=== PATIENT | female | born 1975 | race Caucasian/White ===

== ENCOUNTER → 2016-11-28 | Outpatient (REF) | payer BC, OTHER | LOC: M LAB REF 13:04 | PROVIDERS: ATTEND Internal Medicine Medical Oncology | DX: D72.829 Elevated white blood cell count, unspecified (principal) ==

== ENCOUNTER → 2016-12-05 | Outpatient (REF) | payer BC | LOC: M LAB REF 12:32 | PROVIDERS: ATTEND Internal Medicine Medical Oncology | DX: D72.829 Elevated white blood cell count, unspecified (principal) ==

== ENCOUNTER → 2017-05-30 | Outpatient (CLI) | payer OTHER ==
[~2017-05-30] MED LIST: ALLERGY SHOTS; ASPI1TAB PO; ATEN50TA9 PO; CLON-412 PO; FISH1CAP20 PO; FLOM5CAP PO; FLUO20CA19 PO; FOLI1TAB4 PO; LORA10CA PO; METH2.5TA PO; PREM0.452 PO; SIMV40TA2 PO; SUPETAB25 PO; TYLE650T35 PO; VITA-182 PO; VITA1CHW12 PO; VITMTA PO
--- NOTE | 2017-05-30 12:51 | REP ---
Supine abdomen two views: There is a 9 mm calcification projected over the lower pole of the right kidney. There is a 7 mm calcification projected over the lower pole of the left kidney. There are surgical clips in the right upper quadrant. The bowel gas pattern is normal. The skeletal structures and soft tissues are unremarkable. Signed by Vipul Perez MD 05/30/2017 12:43 P
[2017-05-30 13:50] LABS: MEAN CORPUSCULAR HEMOGLOBIN 28.2 pg (27.0-33.0); MEAN CORPUSCULAR HGB CONC 31.9 g/dl (32.0-36.5); MEAN CORPUSCULAR VOLUME 88.6 fl (80.0-96.0); RED CELL DISTRIBUTION WIDTH 15.9 % (11.5-14.5); WHITE BLOOD COUNT 11.9 10^3/uL (4.0-10.0)
[2017-05-30 14:06] LABS: INR 0.97
[2017-05-30 15:46] LABS: ANION GAP 7 MEQ/L (8-16); BLOOD UREA NITROGEN 12 MG/DL (7-18); CARBON DIOXIDE LEVEL 32 MEQ/L (21-32); CHLORIDE LEVEL 101 MEQ/L (98-107); GLOMERULAR FILTRATION RATE > 60.0 (>58); GLUCOSE, FASTING 78 MG/DL (70-105); POTASSIUM SERUM 4.3 MEQ/L (3.5-5.1); SODIUM LEVEL 140 MEQ/L (136-145)
== END ==
LOC: M SMT 11:45
PROVIDERS: ATTEND Nurse Practitioner Women's Health
DX: N20.0 Calculus of kidney (principal)

== ENCOUNTER 2017-06-08 06:35 | Day surgery (SDC) | payer OTHER ==
[~2017-06-08] VITALS: Ht 165.1 cm; Wt 130.6 kg
[~2017-06-08 06:35] MED LIST changes: -ASPI1TAB PO; -FLOM5CAP PO; -TYLE650T35 PO
[2017-06-08] MEDS ORDERED: LIDOCAINE 1% MDV 20ML VIAL SQ PRN (07:00)
[2017-06-08] MEDS ORDERED: LR 1,000 ML IV SCH ×2 (07:00→09:45)
[2017-06-08] MEDS ORDERED: MIDAZOLAM INJ 2 MG/2 ML VIAL (J2250) As Ordered ONE (07:54)
[2017-06-08] MEDS ORDERED: PROPOFOL 200 MG/20 ML VIAL As Ordered ONE (07:54)
[2017-06-08] MEDS ORDERED: fentaNYL 100 MCG/2 ML INJECTION (J3010) As Ordered ONE (07:54)
[2017-06-08] MEDS ORDERED: ASPI1TAB PO (08:00)
--- NOTE | 2017-06-08 08:21 | REP ---
KUB: Single view. History: Right renal stone. Comparison KUB May 30, 2017. Findings: There are bilateral intrarenal calculi. In the mid position at the right renal silhouette, there is a 10 mm calculus again noted. This was at the lower pole level on the prior study. In the lower pole of the left kidney, today's radiograph again demonstrates a calculus measuring 7 mm. No other urinary tract calculus is visible. The bowel gas pattern is normal. Psoas margins and flank stripes are intact. There are clips in the right upper quadrant post cholecystectomy. Degenerative changes are seen in the symphysis pubis. Impression: Bilateral intrarenal nephrolithiasis. Signed by Ignacio Grant MD 06/08/2017 11:56 A
--- NOTE | 2017-06-08 08:31 | ECGEPIP ---
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
[2017-06-08] MEDS ORDERED: FLOM5CAP PO (08:54)
[2017-06-08] MEDS ORDERED: TYLE650T35 PO (08:54)
[2017-06-08] MEDS ORDERED: TAMSULOSIN 0.4 MG CAP PO SCH (09:00)
[2017-06-08] MEDS ORDERED: PERCOCET 5MG/325MG TAB PO PRN (09:45)
[2017-06-08] MEDS ORDERED: ACETAMINOPHEN TAB 650MG DOSE (2X325MG) PO PRN (09:45)
[2017-06-08] MEDS ORDERED: ACETAMINOPHEN 650MG ER TAB (TYLENOL ARTHRITIS) PO SCH (10:00)
[2017-06-08 10:15] VITALS: BP 124/66
--- NOTE | 2017-06-08 13:37 | RO ---
DATE OF PROCEDURE: 06/08/2017 PREPROCEDURE DIAGNOSIS: Right renal stone. POSTPROCEDURE DIAGNOSIS: Right renal stone. PROCEDURE: Right extracorporal shockwave lithotripsy. SURGEON: Dr. Charli Crook. GUIDEMAN: None. ANESTHESIA: MAC. COMPLICATIONS: None. ESTIMATED BLOOD LOSS: N/A FINDINGS: 6 mm right renal stone. HISTORY OF PRESENT ILLNESS: This is a 42-year-old female patient with a right 6 mm kidney stone and has flank pain. For this reason we have ordered a right extracorporal shockwave lithotripsy. She has signed a consent form. DESCRIPTION OF PROCEDURE: With the patient under MAC anesthesia in the supine position after the findings was done with ultrasound and x-ray, we gave a total of 2500 shockwave lithotripsies at a power of 1-20. The first 100 shockwave lithotripsy was done at a power of 1-6, the following 100 shockwave lithotripsy was done at a power of 6-10, the final 100 shockwave lithotripsy was done at a power of 1-15 and the final 2200 shockwave lithotripsy was done at a power of 16-20. The patient tolerated the procedure very well. There were no complications. PLAN: The patient will go home today with Flomax and Tylenol for pain. She will followup at [facility] in about 3 weeks.
== END 2017-06-08 10:17 | disposition home or self-care (01) ==
LOC: M SDC 06:35
PROVIDERS: ATTEND Urology
DX: N20.0 Calculus of kidney (principal); I10 Essential (primary) hypertension; E78.5 Hyperlipidemia, unspecified; G47.30 Sleep apnea, unspecified; Z79.899 Other long term (current) drug therapy; Z88.1 Allergy status to other antibiotic agents; Z88.8 Allergy status to other drugs, medicaments and biological substances

== ENCOUNTER → 2017-07-06 | Outpatient (CLI) | payer OTHER ==
[~2017-07-06] MED LIST changes: +ASPI1TAB PO; +FLOM5CAP PO; +TYLE650T35 PO
--- NOTE | 2017-07-06 16:55 | REP ---
CT ABDOMEN AND PELVIS WITHOUT CONTRAST: 07/06/2017. Clinical history: Kidney stone, flank pain. Comparison: CT 05/30/2012. Findings: CT abdomen: Renal stone protocol utilized. Lung bases were clear. Heart is not enlarged. There is no pericardial thickening or effusion nor hiatal hernia. Liver is not enlarged with 17 cm vertical diameter in the midclavicular line. No fatty infiltration. No focal hepatic mass or biliary dilatation. Clips from prior cholecystectomy seen. No ascites. No splenomegaly or focal splenic lesion. Adrenal glands are normal. Pancreas unremarkable. No peripancreatic inflammatory changes, stone, fluid collections or adenopathy. Adrenal glands normal. There are stones in the kidneys bilaterally. In the lower pole on the left is a triangular-shaped 9 mm stone. No stone in the collecting system or any hydronephrosis. The right kidney shows a few stones in the 3-5 mm range, interpolar lower pole pyramids. None in the collecting systems and no hydronephrosis or hydroureter. I see no ureteral stone on either side. Small bowel loops and colon grossly intact. Colon is without sign of colitis or diverticulitis. Lung window review of all CT slices shows no perforation or free air. No abscess. The aorta is intact. No periaortic other retroperitoneal lymphadenopathy. Bone windows show lumbar and lower thoracic spine without compression deformity or destructive lesion. Visualized ribs are intact. There is no focal lesion. CT pelvis: Sacrum, SI joints, iliac bones, hips and symphysis pubis without fracture or destructive lesion. There is mild hip arthritis, right more than left. Small osteophytes. No hip joint space narrowing. Uterus absent. Vaginal cuff intact. No adnexal mass. Distal left colon through the rectum shows no colitis or diverticulitis. Small bowel loops in the pelvis intact. There is no ventral or inguinal hernia nor inguinal adenopathy. Impression: 1. Bilateral nephrolithiasis without hydronephrosis, hydroureter, ureteral stone or bladder stone. No bladder wall thickening or mass. 2. Status post hysterectomy. No pelvic mass. 3. Liver, spleen, pancreas, adrenal glands, colon and small bowel loops unremarkable. No ventral or inguinal hernia. Signed by Luis Armando Woodruff MD 07/06/2017 07:45 P
== END ==
LOC: M RAD 14:03
PROVIDERS: ATTEND Nurse Practitioner Women's Health
DX: N20.0 Calculus of kidney (principal); R10.9 Unspecified abdominal pain

== ENCOUNTER → 2018-06-14 | Outpatient (REF) | payer OTHER ==
[2018-06-14 14:09] LABS: APPEARANCE, URINE CLOUDY (CLEAR); BACTERIA, URINE AUTO 1+ (NEGATIVE); BILIRUBIN, URINE AUTO NEGATIVE (NEGATIVE); BLOOD, URINE BLOOD NEGATIVE (NEGATIVE); COLOR, URINE YELLOW (YELLOW); GLUCOSE, URINE (UA) AUTO NEGATIVE (NEGATIVE); KETONE, URINE AUTO NEGATIVE (NEGATIVE); LEUKOCYTE ESTERASE, URINE AUTO NEGATIVE (NEGATIVE); MUCUS, URINE SMALL (NEGATIVE); NITRITE, URINE AUTO NEGATIVE (NEGATIVE); PROTEIN, URINE AUTO NEGATIVE (NEGATIVE); RBC, URINE AUTO 0 /HPF (0-3); SPECIFIC GRAVITY URINE AUTO 1.017 (1.002-1.035); SQUAMOUS EPITHELIAL CELL UR AU 3 /HPF (0-6); UROBILINOGEN, URINE AUTO 0.2 mg/dL (0.0-2.0); WBC, URINE AUTO 1 /HPF (0-3)
== END ==
LOC: M SMT 13:11
DX: N20.0 Calculus of kidney (principal)

== ENCOUNTER → 2018-06-26 | Outpatient (CLI) | payer OTHER | LOC: M RAD 14:31 | DX: N20.0 Calculus of kidney (principal); R10.9 Unspecified abdominal pain; K42.9 Umbilical hernia without obstruction or gangrene | CPT/HCPCS: 74176 ==

== ENCOUNTER → 2019-02-20 | Outpatient (REF) | payer OTHER ==
[~2019-02-20] MED LIST changes: -ASPI1TAB PO; +ASPI81TA26 PO; +B COTAB3 PO; +CLAR10CA3 PO; +D3 H10002 PO; +ESTR2TAB2 PO; +FLOM0.4C39 PO; -FLOM5CAP PO; +FOLI1TAB11 PO; -FOLI1TAB4 PO; +METH2.5T48 PO; -METH2.5TA PO; +TIZA4TAB4 PO; +TRAM50TA2 PO
[2019-02-21 15:34] LABS: URINE TOTAL PROTEIN 12.2 MG/DL (0-12); URINE TOTAL PROTEIN 9.1 MG/DL (0-12)
[2019-02-23 07:57] LABS: TOTAL PROTEIN 24 HOUR URINE 127.4 MG/24HR (50-150)
[2019-03-06 13:13] LABS: UPEP INTERPRETATION NO M-SPIKE NOTED; URINE VOLUME RANDOM ML
== END ==
LOC: M LAB REF 14:40
PROVIDERS: ATTEND Internal Medicine Medical Oncology
DX: R93.7 Abnormal findings on diagnostic imaging of other parts of musculoskeletal system (principal)

== ENCOUNTER → 2020-09-01 | Outpatient (REF) | payer BC, OTHER ==
[~2020-09-01] MED LIST changes: +ACET650T61 PO; -FLUO20CA19 PO; +FLUO20CA22 PO; -SIMV40TA2 PO; +SIMV40TA20 PO; -TYLE650T35 PO
[2020-09-01 13:39] LABS: APPEARANCE, URINE CLOUDY (CLEAR); BACTERIA, URINE AUTO 1+ (NEGATIVE); BILIRUBIN, URINE AUTO NEGATIVE (NEGATIVE); BLOOD, URINE BLOOD 3+ (NEGATIVE); CALCIUM OXALATE CRYSTALS LARGE; COLOR, URINE YELLOW (YELLOW); GLUCOSE, URINE (UA) AUTO NEGATIVE (NEGATIVE); KETONE, URINE AUTO NEGATIVE (NEGATIVE); LEUKOCYTE ESTERASE, URINE AUTO TRACE (NEGATIVE); MUCUS, URINE SMALL (NEGATIVE); NITRITE, URINE AUTO NEGATIVE (NEGATIVE); PROTEIN, URINE AUTO 2+ mg/dL (NEGATIVE); RBC, URINE AUTO TNTC /HPF (0-3); SPECIFIC GRAVITY URINE AUTO 1.023 (1.002-1.035); SQUAMOUS EPITHELIAL CELL UR AU 4 /HPF (0-6); UROBILINOGEN, URINE AUTO 0.2 mg/dL (0.0-2.0); WBC, URINE AUTO 8 /HPF (0-3)
== END ==
LOC: M SMT 13:05
PROVIDERS: ATTEND Nurse Practitioner Women's Health
DX: R31.0 Gross hematuria (principal)

== ENCOUNTER → 2020-09-08 | Outpatient (CLI) | payer BC ==
[~2020-09-08] MED LIST changes: +ISOVUE-370 76% 100ML VIAL As Ordered ONE
--- NOTE | 2020-09-08 10:53 | REP ---
INDICATION: GROSS HEMATURIA. COMPARISON: 06/26/2018 TECHNIQUE: Axial precontrast, contrast-enhanced and delayed images from the lung bases to the pubic symphysis using 100 cc Isovue 370 intravenous contrast material. Coronal and sagittal reformations obtained. This CT examination was performed using the following dose reduction techniques: Automated exposure control, adjustment of mA and/or kv according to the patient's size, and the use of iterative reconstruction technique. FINDINGS: There is a 12 mm obstructing calculus in the distal left ureter approximately 4 cm above the ureterovesical junction with associated Periureteral stranding. Remainder of the urinary tract system is unremarkable. Mild periaortic reactive lymph nodes at the level of the left kidney noted measuring up to 8 mm. Liver, spleen, pancreas, and bilateral adrenal glands are normal. Evidence for prior cholecystectomy. The enteric system is without obstruction or acute inflammatory process. Pelvis demonstrates relatively normal bladder and evidence for prior partial hysterectomy. No ascites. No free air. Abdominal aorta without aneurysm or dissection. Musculoskeletal structures are intact. Lung bases are clear. IMPRESSION: 1. A 12 mm obstructing calculus in the distal left ureter with mild periureteral stranding and mild reactive lymph nodes. Otherwise normal urinary tract system. 2. No further acute abdominopelvic pathology appreciated. <Electronically signed by Dominic Valencia > 09/08/20 1043
== END ==
LOC: M RAD 10:09
PROVIDERS: ATTEND Nurse Practitioner Women's Health
DX: N20.1 Calculus of ureter (principal); R31.0 Gross hematuria
CPT/HCPCS: 74178; Q9967

== ENCOUNTER → 2020-10-11 | Outpatient (CLI) | payer BC ==
[~2020-10-11] MED LIST changes: +EQL50TAB2 PO; -ISOVUE-370 76% 100ML VIAL As Ordered ONE; +OXYB5TAB10 PO; +VITA500C24 PO
== END ==
LOC: M LABSMTC 11:19
PROVIDERS: ATTEND Anesthesiology
DX: Z01.812 Encounter for preprocedural laboratory examination (principal); Z20.822 Contact with and (suspected) exposure to COVID-19

== ENCOUNTER 2020-10-16 08:52 | Day surgery (SDC) | payer BC ==
[~2020-10-16] VITALS: Ht 165.1 cm; Wt 132.9 kg
[~2020-10-16 08:52] MED LIST changes: +LIDOCAINE 1% MDV 20ML VIAL SQ PRN; +LR 1,000 ML IV ONE; +ceFAZolin SOD 1 GM in D5W MINI-BAG PLUS 50 ML IV ONE; +ceFAZolin SOD 2 GM in IV 1 EA IV ONE
--- OUTSIDE RECORDS SUMMARY | 2020-10-16 08:56 | CCD ---
Author Author [facility] Organization [facility] Address Unknown Phone Unavailable Care Team Providers Care Frame Changer Name Role Phone DanielMaritza kramer Unavailable PROBLEMS Type Condition ICD9-CM Code [id number] Code Onset Dates Condition S tatus W/U Status Risk SNOMED Code Notes Problem Kidney stones N20.0 Active confirmed 722240 07 Problem Ureteral stone with hydronephrosis N13.2 Activ e confirmed 655815529 Problem Kidney stone N20.0 Active confirmed 4359392 7 ALLERGIES Allergen (clinical drug ingredient) Drug/Non Drug Allergy do cumented on EMR Reaction Allergy Type Onset Date Status gabapentin Gabapentin(ND Code:[address]-50) Unknown Drug Allergy Active topiramate Topamax(ND Code:[address]-01) Unknown Drug Allergy Active Azithromycin (5 day) Unknown Drug Allergy Ac tive Seasonal Allergies Unknown Non Drug Allergy Active Lactose Unknown Non Drug Allergy Active ENCOUNTERS from 1975 to 2020-10-15 Encounter Location Date Provider Diagnosis [facility] [address] [place] [address] Sep Maritza Noel IMMUNIZATIONS No Information SOCIAL HISTORY Sex Assigned At : Social History Observation Description Sex Assigned At Unknown Language: Question Answer Notes Languages spoken: Belarusian Church: Question Answer Notes Church No episcopalian beliefs that would impact health care. Sexual Hx: Question Answer Notes Had sex in the last 12 months (vaginal, oral, or anal)? Yes LMP: HYSTER Have you ever had an STD? No with Men only Alcohol Screening: Question Answer Notes Did you have a drink containing alcohol in the past year? Ye s Points 1 Interpretation Negative How often did you have six or more drinks on one occas ion in the past year? Never (0 points) How many drinks did you have on a typica l day when you were drinking in the past year? 1 or 2 (0 points) How often did you have a drink containing alcohol in t he past year? Monthly or less (1 point) REASON FOR REFERRAL No Information VITAL SIGNS No information MEDICATIONS Medication SIG (Take, Route, Frequency, Duration) Notes Start Da te End Date Status Loratadine 10 MG 1 tablet Orally Once a day for 30 day(s) Active Methotrexate 2.5 MG 6 tabs Orally fridays Not-Taking Clonidine HCl 0.1 MG 1 tablet at bedtime Orally Once a day Not-Taking Prempro 0.45-1.5 MG 1 tablet Orally Once a day Not-Taking Multivitamins as directed Orally Act tyrese Percocet 5-325 MG 1 tablet as needed Orally every 6 hrs, MDD 4 f or 7 days May, Not-Taking Vitamin B Complex-C - Orally Act tyrese [place] 3 120-180 MG 1 capsule Orally Once a day Not-Taking Ascorbic Acid 500 MG 1 tablet Orally Once a day Not-Taking Aspirin 81 MG Orally Not-Taking Flomax 0.4 MG 1 capsule Orally Once a day for 30 day(s) May, Not-Taking Topiramate 50 MG 1 tablet Orally Twice a day Not-Taking Simvastatin 40 MG 1 tablet in the evening Orally Once a day Not-Taking Folic Acid 1 MG 1 tablet Orally Once a day Not-Taking Atenolol-Chlorthalidone 50-25 MG 1 tablet Orally Once a day Not-Taking Flomax 0.4 MG 1 capsule Orally Once a day for 30 day(s) Jun, Not-Taking Cholecalciferol 1000 UNIT 1 capsule Orally Once a day Not-Taking Ciprofloxacin HCl 500 MG 1 tablet with evening meal Orally Once a day Not-Taking Doxycycline Hyclate 100 MG 1 capsule Orally every 12 hrs Not-Taking Percocet 5-325 MG 1 tablet as needed Orally every 6 hrs, MDD 4 f or 7 days Jun, Not-Taking Methotrexate 2.5 MG Orally Not-T aking Augmentin 875-125 MG 1 tablet Orally Twice a day for 10 day(s) May, Not-Taking FLUoxetine HCl 10 MG 1 capsule in the morning Orally Once a day Not-Taking Percocet 5-325 MG 1 tablet Orally every 6 hrs as needed for pain (MDD4) Aug, Active Oxybutynin Chloride 5 MG 1 tablet Orally Twice a day for 30 day( s) Aug, Active Vitamin C 500 MG as directed Orally Active Estradiol 2 MG 1 tablet Orally Daily for Three Weeks, 1 Week off Active Bactrim DS 800-160 MG 1 tablet Orally Twice a day for 10 day(s) Sep, Active PROCEDURES No Information RESULTS No Results REASON FOR VISIT UTI MEDICAL (GENERAL) HISTORY Type Description Date Medical History Hypertension Medical History Lumbago Medical History TIA Medical History Hyperlipdemis Surgical History Open Cholestectomy Surgical History Appendectomy Surgical History Bilateral CTR Surgical History Left Ulner Nerve Surgical History Hysterectomy total Surgical History Tonsils and adnoids Surgical History neck sx Hospitalization History Surgically related Goals Section No Information Health Concerns No Information MEDICAL EQUIPMENT No Information MENTAL STATUS No Information FUNCTIONAL STATUS No Information ASSESSMENTS No Information PLAN OF TREATMENT Medication Medication Name Sig Start Date Stop Date Bactrim DS 800-160 MG 1 tablet Orally Twice a day for 10 day(s) Sep, Next Appt Details Provider Name:Will Dove, 2020-10-26 10:30:00 AM, [id number], [place], [address], Insurance Providers Payer Name Payer Address Payer Phone Insured Name Patient Relati onship to Insured Coverage Start Date Coverage End Date POLO CABRERA PPO [phone] [facility] [place] [id number] ALEKSANDR BEAL self
--- OUTSIDE RECORDS SUMMARY | 2020-10-16 08:56 | CCD | Continuity of Care Document ---
Author Author [facility] Organization [facility] Address [address] [place] [address] Phone Support Name Relationship Address Phone Victor Manuel Aguirre PRS [facility] [place] [address] Charleen John PRS [address] [facility] [address] [place] [address] Allergies, Adverse Reactions, Alerts Allergen Type Severity Reaction Last Updated Verified Status gabapentin Allergy Mild Mouth PAIN September 05, 2019 12:54pm No Active topiramate Allergy Mild KIDNEY STONES September 05, 2019 12:54pm No Active lactose Allergy September 05, 2019 12:54pm Yes Active azithromycin Adverse Reaction Severe HEARTBURN, HEART PALPITATIONS, SHORTNESS OF BREATH September 05, 2019 12:54pm Yes Active fluticasone Adverse Reaction Moderate headache September 05, 2019 12:54pm Yes Active SEASONAL ALLERGIES Adverse Reaction Mild September 05, 2019 12:54pm Yes Active Medications Medication Status Dose Units Route Directions Qty Days Start Date End Date Instructions Prednisone Discontinued 60 MG PO daily April 22, 2019 1:04pm May 27, 2019 7:25am Amoxicillin Discontinued 500 MG PO 2 Times Per Day April 22, 2019 1:09pm May 27, 2019 7:23am Azelastine Discontinued 1 SPRAY BROWN 2 Times Per Day 30 May 27, 2019 7:38am September 05, 2019 12:47pm administer into each nostril Ciprofloxacin Hcl (Cipro) 500 mg tablet Discontinued 500 MG PO 2 Times Per Day 14 August 01, 2019 1:41pm August 08, 2019 3:27pm Fluconazole Discontinued 150 MG PO Every Week 2 August 01, 2019 1:43pm August 08, 2019 3:27pm Naproxen Discontinued 500 MG PO 2 Times Per Day 60 August 08, 2019 3:47pm August 29, 2019 8:22am Doxycycline Hyclate Discontinued 100 MG PO 2 Times Per Day 14 September 05, 2019 1 :07pm September 23, 2019 12:10pm Cefuroxime Axetil Discontinued 500 MG PO 2 Times Per Day September 23, 2019 12:30pm October 08, 2019 2:04pm Cefuroxime Axetil Discontinued 500 MG PO 2 Times Per Day October 08, 2019 2:18pm October 18, 2019 12:33pm Cefuroxime Axetil Active 500 MG PO 2 Times Per Day October 18, 2019 12:32pm Loratadine Active 10 MG PO Once Per Day January 26, 2016 6:39pm Multivitamin Active 1 EACH PO Once Per Day January 26, 2016 6:53pm Ibuprofen Discontinued 8 00 MG PO Three times daily WITH Meals January 28, 2016 12:2 5pm February 21, 2017 12:53pm Oxycodone-Acetaminophen Discontinued 1 TAB PO Every 4 hours January 28, 2016 12:2 8pm February 24, 2016 1:52pm Ascorbic Acid (Vitamin C) (Vitamin C [facility]) 500 MG tablet Active 500 MG PO Once Per Day May 09, 2017 2:00am Aspirin Discontinued 81 MG PO Once Per Day May 09, 2017 2:00am October 24, 2017 11:31am Cholecalciferol (Vitamin D3) Discontinued 1000 UNIT PO Once Per Day May 09, 2017 2:00am August 01, 2019 1:29pm Conj Estrog-Medroxyprogest James (Prempro) 0.45-1.5 mg t ablet Discontinued 1 EACH PO Once Per Day May 09, 2017 2:00am [facility] 2016 7:01pm Vitamin B Comp With C No.4 (Super B Comp kika + C) 150 MG tablet Active 150 MG PO Once Per Day May 09, 2017 2:00am Mlmbg-0q-Eci-Epa-Fish Oil Discontinued 1 EACH PO Once Per Day May 09, 2017 2:00am December 19, 2017 7:31am Tamsulosin (Flomax) 0.4 MG capsule D iscontinued 0.4 MG PO Once Per Day May 09, 2017 5:12am May 31, 2017 11:20am Oxycodone-Acetaminophen Discontinued 1 TAB PO Every 6 hours May 09 6:01am May 31, 2017 11:20am Folic Acid Discontinued 1 MG PO Once Per Day May 15, 2017 1:56pm October 24, 2017 11:31am Ketorolac Discontinued 10 MG PO Three times a day May 15, 2017 4:15pm May 31, 2017 11:20am Oxycodone-Acetaminophen Discontinued 1 TAB PO Every 4 hours May 15 7 4:15pm May 31, 2017 11:20am Ketorolac Discontinued 10 MG PO Three times a day October 15, 2018 7:00pm February 01, 2019 1:10pm Cyclobenzaprine Discontinued 10 MG PO Every 8 hours October 15, 2018 7:02pm October 26, 2018 3:17pm Diclofenac Epolamine (Flector) 1.3 % patch 12 hour Discontinued 1 PATCH TOP 2 Times Per Day NEEDED October 15, 2018 7:23pm October 26, 2018 3:18pm Multivitamin Discontinued 1 CAP PO 0 June 27, 2012 2:55pm January 26, 2016 6:51pm Loratadine (Allergy Relief (Loratadine)) 10 mg tablet Discontinued 10 MG PO Once Per Day 0 June 27, 2012 2:55pm July 012013 3:51pm Omeprazole (Prilosec) 10 mg capsule,delayed release(DR /EC) Discontinued 10 MG PO 0 July 30, 2012 4:10pm July 30, 2012 4:14pm Dicyclomine (Bentyl) 10 mg capsule D iscontinued 10 MG PO 0 July 30, 2012 4 :12pm September 13, 2012 1:57pm Omeprazole (Prilosec) 40 mg capsule,delayed release(DR /EC) Discontinued 40 MG PO 0 July 30, 2012 4:13pm September 13, 2012 1:57pm Acetaminophen-Codeine (Tylenol-Codeine #3) 300-30 mg t ablet Discontinued 1 TAB PO 0 July 30, 2012 4:14pm September 13, 2012 1:57pm Amox Tr/Potassium Clavulanate (Augmentin 875-125 Table t) Discontinued 1 TAB PO Every 12 Hours September 13, 2012 2:16pm September 262012 8:29am Amox Tr/Potassium Clavulanate (Augmentin 875-125 Table t) Discontinued 1 TAB PO Every 12 Hours September 26, 2012 8:29am September 282012 3:53pm Fluconazole (Diflucan) 100 mg tablet Discontinued 100 MG PO Once Per Day September 26, 2012 8:29am September 26, 2012 8:30am Fluconazole (Diflucan) 100 mg tablet Discontinued 100 MG PO Once Per Day September 26, 2012 8:30am October 15, 2012 3:53pm Acetaminophen (Tylenol Ex Str Arthritis Pain) 500 mg t ablet Discontinued 500 MG PO 0 2012 1:30pm June 17, 2013 11:40am null (SODA) Discontinued ERR.NONE ERR.NONE 0 October 29, 2012 1:30pm November 26, 2013 7:03am Tramadol-Acetaminophen Discontinued 2 TAB PO Every 6 hours 0 November 19, 2012 2:2 5pm June 17, 2013 11:40am Ergocalciferol (Vitamin D2) (Drisdol) 50,000 unit caps ule Discontinued 24411 UNITS PO 1 Time Per Week November 19, 2012 3:50pm August 30, 2013 8:28am Doxycycline Hyclate Discontinued 100 MG PO Once Per Day December 17, 2012 4: 47pm June 17, 2013 11:40am Metronidazole (Noritate) 1 % cream D iscontinued 1 APPLIC TP 2 Times Per Day December 17, 2012 4:48pm June 17, 2013 11:40am Doxycycline Hyclate Discontinued 100 MG PO 2 Times Per Day June 17, 2013 12:45pm August 30, 2013 8:28am Metronidazole (Noritate) 1 % cream D iscontinued 60 GM TP 2 Times Per Day June 17, 2013 12:45pm August 30, 2013 8:28am Clindamycin Phosphate (Cleocin T) 1 % lotion Discontinued 1 APPLIC TP Once Per Day June 17, 2013 12:47pm August 30, 2013 8:28am Amox Tr/Potassium Clavulanate (Augmentin 875-125 Table t) Discontinued 1 TAB PO Every 12 Hours July 29, 2013 1:25pm July 282012 5:43pm Fluconazole (Diflucan) 150 mg tablet Discontinued 150 MG PO ONE TIME August 07, 2013 4:20pm August 30, 2013 8:28am Amox Tr/Potassium Clavulanate (Augmentin 875-125 Table t) Discontinued 1 TAB PO Every 12 Hours August 07, 2013 5:43pm August 302013 8:28am Moxifloxacin (Vigamox) 0.5 % drops D iscontinued 1 DROPS OP Three times a day August 30, 2013 8:44am November 26, 2013 7:03am Levofloxacin (Levaquin (Levofloxacin)) Discontinued 500 MG PO Once Per Day August 30, 2013 8:44am November 26, 2013 7:03am Cholecalciferol (Vitamin D3) Discontinued 1 CAP PO November 26, 2013 7:04am January 26, 2016 6:49pm Levofloxacin (Levaquin) 500 MG tablet Discontinued 500 MG PO Once Per Day November 26, 2013 8:12am May 22, 2014 3:03pm Amoxicillin-Pot Clavulanate (Augmentin 8 75-125 Tablet) 1 EACH tablet Discontinued 875 MG PO Every 12 Hours April 23, 2014 8:46am April 292013 3:03pm Amoxicillin-Pot Clavulanate (Augmentin 8 75-125 Tablet) 1 EACH tablet Discontinued 875 MG PO Every 12 Hours May 22, 2014 3:35pm July 01, 2014 2:57pm Ergocalciferol (Vitamin D2) (Drisdol) 35400 UNIT capsu le Discontinued 27638 UNITS PO as directed May 22, 2014 3:36pm July 01, 2014 2:57pm Take 1 po TIW x 4wks, weekly x 8wks. Ascorbic Acid (Vitamin C) (Vitamin C) 50 0 MG capsule, extended release Discontinued 500 MG PO July 01, 2014 2:57pm January 26, 2016 6:45pm Vitamin B Complex Discontinued 1 EACH PO July 01, 2014 2:57pm January 26, 2016 6:45pm Levocetirizine (Xyzal) 5 MG tablet D iscontinued 5 MG PO On ce Per Day July 01, 2014 3:51pm January 26, 2016 6:49pm Montelukast (Singulair) 10 MG tablet Discontinued 10 MG PO O nce Per Day July 28, 2014 3:07pm January 26, 2016 6:48pm Amoxicillin-Pot Clavulanate (Augmentin 8 75-125 Tablet) 1 EACH tablet Discontinued 875 MG PO Every 12 Hours July 28, 2014 3:08pm August 8:29am Amoxicillin-Pot Clavulanate (Augmentin 8 75-125 Tablet) 1 EACH tablet Discontinued 875 MG PO Every 12 Hours September 05, 2014 8:29am August 3:26pm Prednisone Discontinued 1 TAB PO Once Per Day September 19, 2014 3:26pm September 19, 2014 3:27pm Loratadine Discontinued 10 MG PO Once Per Day January 16, 2015 8:20am July 02, 2015 4:38pm Amoxicillin-Pot Clavulanate (Augmentin 8 75-125 Tablet) 1 EACH tablet Discontinued 875 MG PO Every 12 Hours January 16, 2015 8:44am April 9:13am Amoxicillin-Pot Clavulanate (Augmentin 8 75-125 Tablet) 1 EACH tablet Discontinued 875 MG PO Every 12 Hours May 22, 2015 9:58am July 02, 2015 11:05am Levofloxacin (Levaquin) 750 MG tablet Discontinued 750 MG PO Once Per Day May 29, 2015 2:31pm July 02, 2015 11:05am Methylprednisolone (Medrol*) 4 MG tablets,dose pack Discontinued 4 MG PO As Directed (Daily) May 29, 2015 2:31pm June 11:05am TAKE MEDROL DOSEPACK DIRECTED Syringe With Needle (Surveying Technician Syringe) 1 EACH syringe Discontinued 1 EACH MC ONE TIME September 15, 2015 9:24am September 152015 3:44pm Amoxicillin-Pot Clavulanate (Augmentin 8 75-125 Tablet) 1 EACH tablet Discontinued 875 MG PO Every 12 Hours September 15, 2015 9:41am October 062015 9:55am Syringe With Needle (Surveying Technician Syringe) 1 EACH syringe Discontinued 1 EACH MC ONE TIME September 18, 2015 10:03am August 292015 2:44pm Fluconazole (Diflucan) 150 MG tablet Discontinued 150 MG PO 1 Time/Once September 21, 2015 9:16am October 06, 2015 9:55am Syringe With Needle (Surveying Technician Syringe) 1 EACH syringe Discontinued 1 EACH MC ONE TIME September 21, 2015 10:32am August 292015 1:27pm Syringe With Needle (Surveying Technician Syringe) 1 EACH syringe Discontinued 1 EACH MC ONE TIME October 06, 2015 10:02am October 06, 2015 11:30am Levofloxacin (Levaquin) 750 MG tablet Discontinued 750 MG PO Once Per Day October 07, 2015 4:39pm October 16, 2015 8:03am Syringe With Needle (Surveying Technician Syringe) 1 EACH syringe Discontinued 1 EACH MC ONE TIME 2 October 09, 2015 10:59am October 09, 2015 11:44am Fluconazole (Diflucan) 150 MG tablet Discontinued 150 MG PO 1 Time/Once 1 October 09, 2015 12:22pm October 16, 2015 8:03am Syringe With Needle (Surveying Technician Syringe) 1 EACH syringe Discontinued 1 EACH MC ONE TIME 2 October 14, 2015 11:20am October 14, 2015 3:29pm Syringe With Needle (Surveying Technician Syringe) 1 EACH syringe Discontinued 1 EACH MC ONE TIME 2 October 14, 2015 11:21am October 14, 2015 3:28pm Sulfacetamide Sodium (Acne) (Klaron) 118 ML suspension Discontinued 118 ML TP Once Per Day November 03, 2015 3:07pm January 25 6 6:47pm Apply to face once daily Doxycycline Hyclate Discontinued 100 MG PO Once Per Day November 03, 2015 3:0 7pm January 26, 2016 6:49pm one pill by mo ut once daily. After food. Do not take with dairy products Doxycycline Monohydrate Discontinued 100 MG PO Once Per Day November 05, 2015 7: 56am February 24, 2016 1:52pm 1 by mouth on ce daily with food Sulfacetamide Sodium Discontinued 355 ML TP Once Per Day November 05, 2015 7:5 6am January 26, 2016 6:47pm Cleanse face o nce daily Amoxicillin-Pot Clavulanate (Augmentin 8 75-125 Tablet) 1 EACH tablet Discontinued 875 MG PO Every 12 Hours December 08, 2015 9:31am December 17, 2015 5:35pm Syringe With Needle (Surveying Technician Syringe) 1 EACH syringe Discontinued 1 EACH MC ONE TIME 2 December 09, 2015 9:09am December 09, 2015 2:32pm Syringe With Needle (Surveying Technician Syringe) 1 EACH syringe Discontinued 1 EACH MC ONE TIME 2 December 11, 2015 12:17pm December 11, 2015 12:18pm Syringe With Needle (Surveying Technician Syringe) 1 EACH syringe Discontinued 1 EACH MC ONE TIME 2 December 14, 2015 12:22pm December 14, 2015 3:00pm Syringe With Needle (Surveying Technician Syringe) 1 EACH syringe Discontinued 1 EACH MC ONE TIME 2 December 17, 2015 2:05pm December 17, 2015 5:22pm Tramadol Discontinued 1 TAB PO 2 Times Per Day December 17, 2015 6:30pm January 08, 2016 6:08pm Syringe With Needle (Surveying Technician Syringe) 1 EACH syringe Discontinued 1 EACH MC ONE TIME 2 December 22, 2015 11:44am December 22, 2015 12:16pm Syringe With Needle (Surveying Technician Syringe) 1 EACH syringe Discontinued 1 EACH MC ONE TIME 2 December 28, 2015 9:48am December 29, 2015 11:46am Syringe With Needle (Surveying Technician Syringe) 1 EACH syringe Discontinued 1 EACH MC ONE TIME December 30, 2015 3:18pm December 31, 2015 5:19pm Syringe With Needle (Surveying Technician Syringe) 1 EACH syringe Discontinued 1 EACH MC ONE TIME January 01, 2016 10:04am January 01, 2016 12:32p m Syringe With Needle (Surveying Technician Syringe) 1 EACH syringe Discontinued 1 EACH MC ONE TIME January 04, 2016 3:01pm January 08, 2016 6:59am Hydrochlorothiazide Discontinued 25 MG PO Once Per Day January 05, 2016 1:58 pm February 24, 2016 6:02pm Start with 1/ 2 tab po daily. Increase to 1 tab if tolerated. Syringe With Needle (Surveying Technician Syringe) 1 EACH syringe Discontinued 1 EACH MC ONE TIME January 08, 2016 7:53am January 08, 2016 12:27pm Tramadol Discontinued 1 TAB PO 2 Times Per Day January 08, 2016 6:09pm February 05, 2016 12:30pm Syringe With Needle (Surveying Technician Syringe) 1 EACH syringe Discontinued 1 EACH MC ONE TIME January 11, 2016 8:56am January 13, 2016 6:51a m Syringe With Needle (Surveying Technician Syringe) 1 EACH syringe Discontinued 1 EACH MC ONE TIME January 15, 2016 10:10am January 14 6 2:44pm Syringe With Needle (Surveying Technician Syringe) 1 EACH syringe Discontinued 1 EACH MC ONE TIME January 18, 2016 8:10am January 18, 2016 3:19p m Syringe With Needle (Surveying Technician Syringe) 1 EACH syringe Discontinued 1 EACH MC ONE TIME January 20, 2016 12:56pm January 20 6 4:02pm Syringe With Needle (Surveying Technician Syringe) 1 EACH syringe Discontinued 1 EACH MC ONE TIME 2 January 22, 2016 11:03am January 21 6 2:34pm Conjugated Estrogens (Premarin) 0.9 MG tablet Discontinued 0.9 MG PO Once Per Day February 05, 2016 1:55pm July 06, 2016 9:13am take 1 tablet by mouth daily as directed Syringe With Needle (Surveying Technician Syringe) 1 EACH syringe Discontinued 1 EACH MC ONE TIME February 09, 2016 1:44pm February 11 1:04pm Syringe With Needle (Surveying Technician Syringe) 1 EACH syringe Discontinued 1 EACH MC ONE TIME February 12, 2016 10:44am February 11, 2 016 12:58pm Syringe With Needle (Surveying Technician Syringe) 1 EACH syringe Discontinued 1 EACH MC ONE TIME February 16, 2016 12:50pm February 15, 2 016 3:00pm Syringe With Needle (Surveying Technician Syringe) 1 EACH syringe Discontinued 1 EACH MC ONE TIME February 18, 2016 5:23pm February 17 5:31pm Ciprofloxacin Hcl Discontinued 1 TAB PO 2 Times Per Day February 24, 2016 2:2 6pm March 09, 2016 8:02am Syringe With Needle (Surveying Technician Syringe) 1 EACH syringe Discontinued 1 EACH MC ONE TIME February 24, 2016 2:33pm February 25 6 11:23am Atenolol-Chlorthalidone (Tenoretic 50 Tablet) 1 EACH t ablet Discontinued 1 TAB PO Once Per Day February 24, 2016 6:02pm July 1:25pm Change from HCTZ Syringe With Needle (Surveying Technician Syringe) 1 EACH syringe Discontinued 1 EACH MC ONE TIME February 26, 2016 11:38am February 25 6 1:45pm Fluconazole (Diflucan) 150 MG tablet Discontinued 150 MG PO 1 Time/Once March 01, 2016 10:15 am March 09, 2016 8:02am Syringe With Needle (Surveying Technician Syringe) 1 EACH syringe Discontinued 1 EACH MC ONE TIME March 01, 2016 1:55pm March 01, 2016 2:09p m Syringe With Needle (Surveying Technician Syringe) 1 EACH syringe Discontinued 1 EACH MC ONE TIME March 07, 2016 1:12pm March 08 2:47pm Syringe With Needle (Surveying Technician Syringe) 1 EACH syringe Discontinued 1 EACH MC ONE TIME March 09, 2016 8:38am March 09 12:35pm Syringe With Needle (Surveying Technician Syringe) 1 EACH syringe Discontinued 1 EACH MC ONE TIME 2 March 11, 2016 11:59am March 14, 2 016 12:35pm Syringe With Needle (Surveying Technician Syringe) 1 EACH syringe Discontinued 1 EACH MC ONE TIME 2 March 14, 2016 11:10am March 14, 2 016 12:38pm Syringe With Needle (Surveying Technician Syringe) 1 EACH syringe Discontinued 1 EACH MC ONE TIME 1 2016 9:09am March 18 9:51am Syringe With Needle (Surveying Technician Syringe) 1 EACH syringe Discontinued 1 EACH MC ONE TIME March 23, 2016 8:27am March 23 16 2:36pm Syringe With Needle (Surveying Technician Syringe) 1 EACH syringe Discontinued 1 EACH MC ONE TIME March 28, 2016 11:01am March 28, 2016 11:08am Syringe With Needle (Surveying Technician Syringe) 1 EACH syringe Discontinued 1 EACH MC ONE TIME April 01, 2016 10:02am April 01, 2016 12:07pm Syringe With Needle (Surveying Technician Syringe) 1 EACH syringe Discontinued 1 EACH MC ONE TIME April 04, 2016 1:56pm April 04, 2016 2:31pm Amoxicillin-Pot Clavulanate (Augmentin 8 75-125 Tablet) 1 EACH tablet Discontinued 875 MG PO Every 12 Hours April 05, 2016 12:11pm April 292015 10:43am Syringe With Needle (Surveying Technician Syringe) 1 EACH syringe Discontinued 1 EACH MC ONE TIME April 06, 2016 12:39pm March 10:51am Syringe With Needle (Surveying Technician Syringe) 1 EACH syringe Discontinued 1 EACH MC ONE TIME April 12, 2016 2:46pm March 8:13am Syringe With Needle (Surveying Technician Syringe) 1 EACH syringe Discontinued 1 EACH MC ONE TIME April 14, 2016 10:32am March 7:47am Syringe With Needle (Surveying Technician Syringe) 1 EACH syringe Discontinued 1 EACH MC ONE TIME April 18, 2016 2:40pm March 1:35pm Syringe With Needle (Surveying Technician Syringe) 1 EACH syringe Discontinued 1 EACH MC ONE TIME April 20, 2016 12:53pm March, 2015 12:01pm Syringe With Needle (Surveying Technician Syringe) 1 EACH syringe Discontinued 1 EACH MC ONE TIME April 22, 2016 11:26am March 12:04pm Syringe With Needle (Surveying Technician Syringe) 1 EACH syringe Discontinued 1 EACH MC ONE TIME 2 April 26, 2016 3:05pm April 282015 5:49pm Syringe With Needle (Surveying Technician Syringe) 1 EACH syringe Discontinued 1 EACH MC ONE TIME April 28, 2016 5:43pm April 28, 2016 5:44pm Syringe With Needle (Surveying Technician Syringe) 1 EACH syringe Discontinued 1 EACH MC ONE TIME May 03, 2016 12:47pm Septembe r 2015 2:53pm Syringe With Needle (Surveying Technician Syringe) 1 EACH syringe Discontinued 1 EACH MC ONE TIME May 06, 2016 10:03am Septembe r 2015 11:38am Syringe With Needle (Surveying Technician Syringe) 1 EACH syringe Discontinued 1 EACH MC ONE TIME May 09, 2016 2:23pm Septembe r 2015 2:24pm Syringe With Needle (Surveying Technician Syringe) 1 EACH syringe Discontinued 1 EACH MC ONE TIME May 13, 2016 1:01pm Septembe r 2015 10:38am Syringe With Needle (Surveying Technician Syringe) 1 EACH syringe Discontinued 1 EACH MC ONE TIME May 16, 2016 10:46am Septemb er 2015 11:08am Syringe With Needle (Surveying Technician Syringe) 1 EACH syringe Discontinued 1 EACH MC ONE TIME May 18, 2016 12:42pm Septemb er 2015 1:43pm Syringe With Needle (Surveying Technician Syringe) 1 EACH syringe Discontinued 1 EACH MC ONE TIME May 20, 2016 11:07am Septemb er 2015 2:54pm Syringe With Needle (Surveying Technician Syringe) 1 EACH syringe Discontinued 1 EACH MC ONE TIME May 23, 2016 9:55am Septembe r 2015 2:07pm Amoxicillin-Pot Clavulanate (Augmentin 8 75-125 Tablet) 1 EACH tablet Discontinued 875 MG PO Every 12 Hours May 24, 2016 11:01am June 06, 2016 7:31am Syringe With Needle (Surveying Technician Syringe) 1 EACH syringe Discontinued 1 EACH MC ONE TIME May 25, 2016 2:23pm Septembe r 2015 1:11pm Syringe With Needle (Surveying Technician Syringe) 1 EACH syringe Discontinued 1 EACH MC ONE TIME May 27, 2016 2:34pm May 30, 2016 11:28am Syringe With Needle (Surveying Technician Syringe) 1 EACH syringe Discontinued 1 EACH MC ONE TIME May 30, 2016 10:17am May 09, 2017 1:55am Syringe With Needle (Surveying Technician Syringe) 1 EACH syringe Discontinued 1 EACH MC ONE TIME June 02, 2016 3:07pm May 5:45pm Fluoxetine (Prozac) 20 MG capsule Di scontinued 1 CAP PO O nce Per Day June 06, 2016 8:49am October 05, 2016 4:32pm Syringe With Needle (Surveying Technician Syringe) 1 EACH syringe Discontinued 1 EACH MC ONE TIME June 06, 2016 12:02pm May 282015 1:50pm Syringe With Needle (Surveying Technician Syringe) 1 EACH syringe Discontinued 1 EACH MC ONE TIME June 14, 2016 1:12pm June 142015 1:18pm Syringe With Needle (Surveying Technician Syringe) 1 EACH syringe Discontinued 1 EACH MC ONE TIME June 17, 2016 10:02am May 292015 1:46pm Syringe With Needle (Surveying Technician Syringe) 1 EACH syringe Discontinued 1 EACH MC ONE TIME June 17, 2016 1:45pm June 172015 1:54pm Syringe With Needle (Surveying Technician Syringe) 1 EACH syringe Discontinued 1 EACH MC ONE TIME June 20, 2016 11:38am May 292015 2:39pm Amoxicillin-Pot Clavulanate (Augmentin 8 75-125 Tablet) 1 EACH tablet Discontinued 875 MG PO Every 12 Hours June 23, 2016 4:52pm June 292015 1:49pm Conj Estrog-Medroxyprogest James (Prempro 0.45-1.5 Mg Tablet) 1 EACH tablet Discontinued 1 TAB PO Once Per Day July 06, 2016 9:13am October 052016 4:32pm Syringe With Needle (Surveying Technician Syringe) 1 EACH syringe Discontinued 1 EACH MC ONE TIME July 11, 2016 1:31pm July 19, 2016 2:23pm Syringe With Needle (Surveying Technician Syringe) 1 EACH syringe Discontinued 1 EACH MC ONE TIME July 13, 2016 12:21pm July 19, 2016 2:22pm Syringe With Needle (Surveying Technician Syringe) 1 EACH syringe Discontinued 1 EACH MC ONE TIME July 15, 2016 10:48am July 19, 2016 12:56pm Doxycycline Hyclate Discontinued 100 MG PO 2 Times Per Day July 18, 2016 1:49pm August 24, 2016 9:59am Syringe With Needle (Surveying Technician Syringe) 1 EACH syringe Discontinued 1 EACH MC ONE TIME 2 July 25, 2016 11:36am July 25, 2016 12:18pm Syringe With Needle (Surveying Technician Syringe) 1 EACH syringe Discontinued 1 EACH MC ONE TIME August 03, 2016 10:52am August 04, 2016 3:06pm Syringe With Needle (Surveying Technician Syringe) 1 EACH syringe Discontinued 1 EACH MC ONE TIME August 23, 2016 10:03am September 05, 2016 2:01pm Atenolol-Chlorthalidone (Tenoretic 50) 1 EACH tablet Discontinued 1 TAB PO Once Per Day August 23, 2016 1:25pm June 012016 7:04pm Change from HCTZ Amoxicillin-Pot Clavulanate (Augmentin 8 75-125 Tablet) 1 EACH tablet Discontinued 875 MG PO Every 12 Hours August 24, 2016 10:32am October 04, 2016 9:01am Methylprednisolone (Medrol*) 4 MG tablets,dose pack Discontinued 4 MG PO as directed August 26, 2016 10:26am October 04, 2016 9:01am take medrol dosepack as directed Syringe With Needle (Surveying Technician Syringe) 1 EACH syringe Discontinued 1 EACH MC ONE TIME September 02, 2016 2:05pm August 1:52pm Syringe With Needle (Surveying Technician Syringe) 1 EACH syringe Discontinued 1 EACH MC ONE TIME September 07, 2016 12:23pm August 282016 4:03pm Syringe With Needle (Surveying Technician Syringe) 1 EACH syringe Discontinued 1 EACH MC ONE TIME 2 September 15, 2016 6:23pm September 152016 6:27pm Syringe With Needle (Surveying Technician Syringe) 1 EACH syringe Discontinued 1 EACH MC ONE TIME September 22, 2016 12:16pm October 03, 2016 10:39am Syringe With Needle (Surveying Technician Syringe) 1 EACH syringe Discontinued 1 EACH MC ONE TIME September 30, 2016 1:40pm October 032016 9:40am Amoxicillin-Pot Clavulanate (Augmentin 8 75-125 Tablet) 1 EACH tablet Discontinued 875 MG PO Every 12 Hours October 05, 2016 1:25pm October 26, 2016 10:22am Fluoxetine (Prozac) 20 MG capsule Di scontinued 1 CAP PO O nce Per Day October 05, 2016 4:32pm December 06, 2016 2:07pm Conj Estrog-Medroxyprogest James (Prempro 0.45-1.5 Mg Tablet) 1 EACH tablet Discontinued 1 TAB PO Once Per Day October 05, 2016 4:32pm September 292016 2:06pm Syringe With Needle (Surveying Technician Syringe) 1 EACH syringe Discontinued 1 EACH MC ONE TIME 2 October 07, 2016 11:16am October 12, 2016 3:20pm Syringe With Needle (Surveying Technician Syringe) 1 EACH syringe Discontinued 1 EACH MC ONE TIME 2 October 11, 2016 10:42am October 12, 2016 3:13pm Fluconazole (Diflucan) 150 MG tablet Discontinued 150 MG PO 1 Time/Once October 17, 2016 9:56am October 26, 2016 10:22am december repeat i n 3-5 days if symptoms persist Syringe With Needle (Surveying Technician Syringe) 1 EACH syringe Discontinued 1 EACH MC ONE TIME 2 October 17, 2016 10:29am October 17, 2016 4:08pm Clonidine Hcl Discontinued 0.1 MG PO At Bedtime October 17, 2016 2:06pm January 19, 2017 9:05am Simvastatin Discontinued 10 MG PO Once Per Day October 17, 2016 2:06pm January 09, 2017 12:58pm Conj Estrog-Medroxyprogest James (Prempro 0.625-2.5 Mg Tablet) 1 EACH tablet Discontinued 1 TAB PO Once Per Day October 17, 2016 3:58pm January 19, 2017 9:06am Prednisone Discontinued 0 PO TAPER October 26, 2016 10:22am November 22, 2016 9:06am Take 3 Tablets (60mg) x 3 days then 2 Tablets (40mg) x 3 days then 1 Tablet (20mg) x 3 days * Take WITH FOOD* Doxycycline Hyclate Discontinued 100 MG PO 2 Times Per Day October 26, 2016 10: 22am November 22, 2016 9:06am Syringe With Needle (Surveying Technician Syringe) 1 EACH syringe Discontinued 1 EACH MC ONE TIME November 04, 2016 9:52am May 092016 1:55am Syringe With Needle (Surveying Technician Syringe) 1 EACH syringe Discontinued 1 EACH MC ONE TIME 2 November 18, 2016 8:25am November 18, 2016 1:21pm Doxycycline Hyclate Discontinued 100 MG PO 2 Times Per Day November 22, 2016 10 :39am January 03, 2017 8:57am Methylprednisolone (Medrol*) 4 MG tablets,dose pack Discontinued 4 MG PO as directed 1 November 25, 2016 1:34pm January 03 7 8:57am Syringe With Needle (Surveying Technician Syringe) 1 EACH syringe Discontinued 1 EACH MC ONE TIME 2 November 25, 2016 2:03pm November 25, 2016 2:06pm Fluoxetine (Prozac) 20 MG capsule Di scontinued 1 CAP PO O nce Per Day December 06, 2016 2: 07pm December 06, 2016 4:23pm Syringe With Needle (Surveying Technician Syringe) 1 EACH syringe Discontinued 1 EACH MC ONE TIME 2 December 06, 2016 2:16pm December 06, 2016 2:27pm Fluoxetine (Prozac) 20 MG capsule Di scontinued 1 CAP PO O nce Per Day December 06, 2016 4: 23pm May 08, 2017 8:18am Syringe With Needle (Surveying Technician Syringe) 1 EACH syringe Discontinued 1 EACH MC ONE TIME 2 December 14, 2016 1:54pm December 14, 2016 2:17pm Syringe With Needle (Surveying Technician Syringe) 1 EACH syringe Discontinued 1 EACH MC ONE TIME 2 December 19, 2016 12:14pm December 19, 2016 2:29pm Syringe With Needle (Surveying Technician Syringe) 1 EACH syringe Discontinued 1 EACH MC ONE TIME December 29, 2016 2:46pm December 29, 2016 3:19pm Syringe With Needle (Surveying Technician Syringe) 1 EACH syringe Discontinued 1 EACH MC ONE TIME January 06, 2017 12:29pm January 06 7 12:30pm Simvastatin Discontinued 40 MG PO Once Per Day January 09, 2017 12:58pm May 08, 2017 8:18am Ciprofloxacin Hcl (Cipro) 500 MG tablet Discontinued 1 TAB PO E very 12 Hours January 10, 2017 4:02pm February 01, 2017 9:25am Fluconazole (Diflucan) 150 MG tablet Discontinued 150 MG PO 1 Time/Once January 11, 2017 12:37 pm February 01, 2017 9:25am Clonidine Hcl Discontinued 0.1 MG PO At Bedtime January 19, 2017 9:05am May 15, 2017 6:56pm Conj Estrog-Medroxyprogest James (Prempro 0.625-2.5 Mg Tablet) 1 EACH tablet Discontinued 1 TAB PO Once Per Day January 19, 2017 9:06am March 13 7 3:02pm Syringe With Needle (Surveying Technician Syringe) 1 EACH syringe Discontinued 1 EACH MC ONE TIME 2 January 24, 2017 2:13pm February 01, 2017 8:43a m Syringe With Needle (Surveying Technician Syringe) 1 EACH syringe Discontinued 1 EACH MC ONE TIME 2 January 31, 2017 11:09am February 01 7 8:42am Syringe With Needle (Surveying Technician Syringe) 1 EACH syringe Discontinued 1 EACH MC ONE TIME 2 February 08, 2017 1:28pm February 08 1:55pm Syringe With Needle(Disp) Tray (Allergis t Syringe Tray) 1 EACH tray Discontinued 1 VIAL SQ ONE TIME 2 February 21, 2017 7:48am February 21 7:55am Tizanidine Discontinued 2 - 4 MG PO Three times a day PRN 60 February 21, 2017 8:2 4am May 09, 2017 1:55am Meloxicam Discontinued 7 .5 MG PO daily-BID 60 February 21, 2017 12:53pm May 09, 2017 1:57am Syringe With Needle(Disp) Tray (Allergis t Syringe Tray) 1 EACH tray Discontinued 1 SYR SQ ONE TIME 2 March 01, 2017 1:37pm March 01, 2017 1:38pm Syringe With Needle(Disp) Tray (Allergis t Syringe Tray) 1 EACH tray Discontinued 1 SYR SQ ONE TIME 2 March 07, 2017 2:29pm March 08 2:25pm Conj Estrog-Medroxyprogest James (Prempro 0.625-2.5 Mg Tablet) 1 EACH tablet Discontinued 1 TAB PO Once Per Day March 13, 2017 3:02pm April 1:59am Syringe With Needle(Disp) Tray (Surveying Technician Tray) 1 EACH tray Discontinued 1 EACH MC ONE TIME 1 March 16, 2017 2:49pm March 16 2:50pm Syringe With Needle(Disp) Tray (Surveying Technician Tray) 1 EACH tray Discontinued 1 EACH MC ONE TIME 2 March 22, 2017 3:28pm March 22 3:30pm Topiramate (Topamax) 50 MG tablet Di scontinued 50 MG PO 2 Times Per Day April 27, 2017 12:40pm May 15, 2017 1:56pm GUNNAR-DR GARCIA Methotrexate Sodium Discontinued 6 TABS PO 1 Time Per Week April 27, 2017 12 :46pm April 17, 2018 2:30pm Gabapentin Discontinued 300 MG PO Three times a day April 27, 2017 1:57pm May 08, 2017 7:37am Start wi th 300mg qhs, if tolerated may increase. Syringe With Needle(Disp) Tray (Surveying Technician Tray) 1 EACH tray Discontinued 1 EACH MC ONE TIME 2 April 27, 2017 2:17pm March 3:27pm Ciprofloxacin Hcl Discontinued 1 TAB PO 2 Times Per Day May 08 7 7:39am May 31, 2017 11:20am Simvastatin Discontinued 40 MG PO Once Per Day May 08, 2017 8:18am July 06, 2017 9:05pm Fluoxetine (Prozac) 20 MG capsule Di scontinued 1 CAP PO O nce Per Day May 08 7 8:18am September 19, 2017 3:57pm Clonidine Hcl Discontinued 0.1 MG PO At Bedtime May 15, 2017 6:56pm November 03, 2017 2:14pm Conj Estrog-Medroxyprogest James (Prempro 0.45-1.5 Mg Tablet) 1 EACH tablet Discontinued 1 EACH PO Once Per Day May 15, 2017 7:01pm October 03, 2017 9:13am Syringe With Needle(Disp) Tray (Surveying Technician Tray) 1 EACH tray Discontinued 1 EACH MC ONE TIME May 16, 2017 10:58am Septemb 2016 1:57pm Albuterol Sulfate (Ventolin Hfa) 18 GM HFA aerosol inh aler Discontinued 1 PUFFS IH Every 6 hours May 31, 2017 1:09pm October 152018 1:35pm Atenolol-Chlorthalidone (Tenoretic 50 Tablet) 1 EACH t ablet Discontinued 1 TAB PO Once Per Day June 01, 2017 7:04pm May 12:58pm Change from HCTZ Syringe With Needle(Disp) Tray (Surveying Technician Tray) 1 EACH tray Discontinued 1 EACH MC ONE TIME 2 June 15, 2017 2:01pm June 152016 4:15pm Prednisone Discontinued 0 PO TAPER June 21, 2017 11:13am August 01, 2017 11:45am Take 3 Tablets (60mg)x 3 days then 2 Tablets (40mg)x 3 days then 1 Tablet (20mg) x 3 days * Take WITH FOOD* Doxycycline Hyclate Discontinued 100 MG PO 2 Times Per Day June 21, 2017 11:13am August 01, 2017 11:45am Simvastatin Discontinued 40 MG PO Once Per Day July 06, 2017 9:05pm November 03, 2017 2:14pm Syringe With Needle(Disp) Tray (Surveying Technician Tray) 1 EACH tray Discontinued 1 EACH MC ONE TIME July 07, 2017 12:19pm July 07, 2017 12:20pm Syringe With Needle(Disp) Tray (Surveying Technician Tray) 1 EACH tray Discontinued 1 EACH MC ONE TIME July 21, 2017 10:53am July 21, 2017 10:55am Syringe With Needle(Disp) Tray (Surveying Technician Tray) 1 EACH tray Discontinued 1 EACH MC ONE TIME August 11, 2017 10:07am August 11, 2017 10:07am Syringe With Needle(Disp) Tray (Surveying Technician Tray) 1 EACH tray Discontinued 1 EACH MC ONE TIME September 15, 2017 1:09pm September 152017 1:10pm Fluoxetine (Prozac) 20 MG capsule Di scontinued 1 CAP PO O nce Per Day September 19, 2017 3:57pm April 04, 2018 11:29am Syringe With Needle(Disp) Tray (Surveying Technician Tray) 1 EACH tray Discontinued 1 EACH MC ONE TIME September 22, 2017 1:43pm September 222017 1:44pm Syringe With Needle(Disp) Tray (Surveying Technician Tray) 1 EACH tray Discontinued 1 EACH MC ONE TIME September 29, 2017 11:30am September 29, 2017 11:33am Estradiol Discontinued 1 MG PO Once Per Day October 03, 2017 9:13am November 03, 2017 2:14pm Syringe With Needle(Disp) Tray (Surveying Technician Tray) 1 EACH tray Discontinued 1 EACH MC ONE TIME October 06, 2017 12:01pm October 06, 2017 12:03pm Syringe With Needle(Disp) Tray (Surveying Technician Tray) 1 EACH tray Discontinued 1 EACH MC ONE TIME October 17, 2017 12:25pm October 17, 2017 12:26pm Doxycycline Hyclate Discontinued 100 MG PO Every 12 Hours October 24, 2017 12:49pm December 19, 2017 7:31am Prednisone Discontinued 0 PO TAPER October 24, 2017 12:49pm December 19, 2017 7:31am 60mg qd x 3d, 40mg x 3d, 20mg x 3d Syringe With Needle(Disp) Tray (Surveying Technician Tray) 1 EACH tray Discontinued 1 EACH MC ONE TIME November 02, 2017 5:31pm November 02 5:32pm Clonidine Hcl Discontinued 0.1 MG PO At Bedtime November 03, 2017 2:14pm May 23, 2018 5:38pm Simvastatin Discontinued 40 MG PO Once Per Day November 03, 2017 2:14pm February 26, 2018 4:21pm Estradiol Discontinued 1 MG PO Once Per Day November 03, 2017 2:14pm November 08, 2017 8:42am Fluconazole (Diflucan) 150 MG tablet Discontinued 150 MG PO 1 Time/Once November 06, 2017 12:57pm December 19, 2017 7:31am Estradiol Discontinued 2 MG PO Once Per Day November 08, 2017 8:42am December 19, 2017 11:47am Syringe With Needle(Disp) Tray (Surveying Technician Tray) 1 EACH tray Discontinued 1 EACH MC ONE TIME December 19, 2017 8:27am December 19, 2017 8:28am Estradiol Discontinued 2 MG PO Once Per Day December 19, 2017 11:47am February 26, 2018 4:21pm Syringe With Needle(Disp) Tray (Surveying Technician Tray) 1 EACH tray Discontinued 1 EACH MC ONE TIME January 26, 2018 10:03am January 26 8 10:36am Syringe With Needle(Disp) Tray (Surveying Technician Tray) 1 EACH tray Discontinued 1 EACH MC ONE TIME February 16, 2018 11:24am February 16, 018 11:25am Amoxicillin-Pot Clavulanate (Augmentin 8 75-125 Tablet) 1 EACH tablet Discontinued 875 MG PO Every 12 Hours February 23, 2018 12:17pm April 17, 2018 2:30pm Simvastatin Discontinued 40 MG PO Once Per Day February 26, 2018 4:21pm June 30, 2018 1:22pm Estradiol Discontinued 2 MG PO Once Per Day February 26, 2018 4:21pm May 01, 2018 8:37pm Fluconazole (Diflucan) 150 MG tablet Discontinued 150 MG PO 1 Time/Once March 09, 2018 10:02am April 17, 2018 2:30pm Fluoxetine (Prozac) 20 MG capsule Di scontinued 1 CAP PO O nce Per Day April 04, 2018 11 :29am October 15, 2018 1:35pm Methotrexate Sodium Discontinued 10 TABS PO 1 Time Per Week April 17, 2018 2: 30pm October 15, 2018 1:35pm Folic Acid Discontinued 1 MG PO Once Per Day April 17, 2018 2:30pm October 15, 2018 1:35pm Estradiol Discontinued 2 MG PO Once Per Day May 01, 2018 8:37pm June 30, 2018 1:22pm Syringe With Needle(Disp) Tray (Surveying Technician Tray) 1 EACH tray Discontinued 1 EACH MC ONE TIME May 10, 2018 3:26pm 2017 4:20pm Clonidine Hcl Discontinued 0.1 MG PO At Bedtime May 23, 2018 5:38pm October 15, 2018 1:35pm Doxycycline Hyclate Discontinued 100 MG PO 2 Times Per Day May 25 8 10:03am July 10, 2018 9:22am Fluconazole (Diflucan) 150 MG tablet Discontinued 150 MG PO 1 Time/Once May 25, 2018 10:03am July 10, 2018 9:22am Prednisone Discontinued 0 PO TAPER May 25, 2018 10:03am July 10, 2018 9:22am 60mg qd x 3d, 40mg qd x 3d, 20mg qd x 3d Atenolol-Chlorthalidone (Tenoretic 50 Tablet) 1 EACH t ablet Discontinued 1 TAB PO Once Per Day June 01, 2018 12:58pm December 26, 019 7:52am Change from HCTZ Atenolol-Chlorthalidone (Tenoretic 50 Tablet) 1 EACH t ablet Discontinued 1 TAB PO Once Per Day June 01, 2018 12:58pm May 27, 2019 7:24am Change from HCTZ Syringe With Needle(Disp) Tray (Surveying Technician Tray) 1 EACH tray Discontinued 1 EACH MC ONE TIME June 15, 2018 12:37pm May 282017 12:38pm Simvastatin Discontinued 40 MG PO Once Per Day June 30, 2018 1:22pm July 23, 2018 7:28pm Estradiol Discontinued 2 MG PO Once Per Day June 30, 2018 1:22pm July 23, 2018 7:28pm Meloxicam (Mobic) 7.5 MG tablet Disc ontinued 7.5 MG PO 2 Times Per Day 60 July 10 8 10:44am October 15, 2018 1:35pm may take 1-2 times daily as needed Lidocaine (Lidoderm) 1 EACH adhesive patch,medicated Discontinued 1 EACH TP Once Per Day July 10, 2018 10:44am October 15, 2018 1:35pm 1-3 patches to affected area , on for 12 hours off for 12 hours. Diclofenac Sodium (Voltaren) 100 GM gel Discontinued 4 G TP Fou r Times a Day 1 July 10, 2018 10:44am October 15, 2018 1:35pm Pregabalin (Lyrica*) 75 MG capsule D iscontinued 75 MG PO 2 Times Per Day July 10, 2018 1:48pm August 09, 2018 9:43pm Tramadol Discontinued 1 TAB PO Three times a day PRN July 13, 2018 2:56pm July 25, 2018 7:00pm Simvastatin Discontinued 40 MG PO Once Per Day July 23, 2018 7:28pm October 15, 2018 1:35pm Estradiol Discontinued 2 MG PO Once Per Day July 23, 2018 7:28pm September 25, 2018 3:12pm Tramadol Discontinued 1 TAB PO Three times a day PRN July 25, 2018 7:01pm August 03, 2018 2:34pm Tramadol Discontinued 1 TAB PO Three times a day PRN August 03, 2018 2:34pm August 14, 2018 4:56pm Tizanidine Discontinued 4 MG PO Three times a day PRN August 03, 2018 2:34pm October 26, 2018 3:18pm Pregabalin (Lyrica*) 75 MG capsule D iscontinued 75 MG PO 2 Times Per Day August 09, 2018 9:44pm October 15, 2018 1:35pm Tramadol Discontinued 1 TAB PO Three times a day PRN August 14, 2018 4:57pm October 26, 2018 3:18pm Doxycycline Hyclate Discontinued 100 MG PO 2 Times Per Day August 29, 2018 8 :53am October 15, 2018 1:35pm Prednisone Discontinued 0 PO TAPER August 29, 2018 8:53am September 07, 2018 9:49am 60mg qd x 3d, 40mg qd x 3d, 20mg qd x 3d Fluconazole (Diflucan) 150 MG tablet Discontinued 150 MG PO 1 Time/Once August 29, 2018 8:54am October 15, 2018 1:35pm Prednisone Discontinued 0 PO TAPER September 07, 2018 9:49am October 15, 2018 1:35pm 60mg qd x 3d, 40mg qd x 3d, 20mg qd x 3d Levofloxacin (Levaquin) 750 MG tablet Discontinued 750 MG PO Once Per Day September 07, 2018 9:50am October 15, 2018 1:35pm Estradiol Discontinued 2 MG PO Once Per Day September 25, 2018 3:12pm November 01, 2018 5:00pm Tizanidine Discontinued 4 MG PO Three times a day PRN 60 October 26, 2018 3:1 8pm December 26, 2018 9:54am Tizanidine Discontinued 4 MG PO Three times a day PRN 60 October 26, 2018 3:1 February 05, 2019 1:42pm Diclofenac Sodium (Voltaren) 100 GM gel Discontinued 2 - 4 G TP Four Times a Day October 26, 2018 3:18pm December 26, 2018 9:54am Diclofenac Sodium (Voltaren) 100 GM gel Discontinued 2 - 4 G TP Four Times a Day October 26, 2018 3:18pm February 01, 2019 1:10pm Tramadol Discontinued 1 TAB PO Three times a day PRN October 26, 2018 3:2 3pm November 16, 2018 12:42pm Estradiol Discontinued 2 MG PO Once Per Day November 01, 2018 5:00pm December 03, 2018 5:12pm Tramadol Discontinued 1 TAB PO Three times a day PRN November 16, 2018 12 :43pm December 26, 2018 10:23am Tramadol Discontinued 1 TAB PO Three times a day PRN November 16, 2018 12 :43pm May 27, 2019 7:25am Estradiol Discontinued 2 MG PO Once Per Day December 03, 2018 5:12pm December 26, 2018 10:40am Estradiol Discontinued 2 MG PO Once Per Day December 03, 2018 5:12pm January 10, 2019 6:37am Estradiol Discontinued 2 MG PO Once Per Day January 10, 2019 6:36am April 09, 2019 11:01pm Tizanidine Discontinued 4 MG PO Three times a day PRN 60 February 05, 2019 1:4 1pm May 27, 2019 7:25am Potassium Chloride Discontinued 20 MEQ PO 2 Times Per Day 20 March 15, 2019 11: 43am May 27, 2019 7:25am Fluconazole Discontinued 150 MG PO Every Week 2 March 29, 2019 10:21am May 27, 2019 7:24am Estradiol Discontinued 2 MG PO daily 90 April 19, 2019 3:36pm October 10, 2019 10:59am Estradiol Active 2 MG PO daily 90 October 10, 2019 10:58am Fluconazole Discontinued 150 MG PO Q3D 2 November 11, 2019 11:37am August 25, 2020 11:04am Problems Active Problems Medical Problem Onset Date Status UTI (urinary tract infection) Active Obstructive sleep apnea Active Gross hematuria Active Allergic rhinitis Acti ve Vitamin D deficiency A ctive Chronic sinusitis Acti ve Inactive/Resolved Problems Medical Problem Onset Date Status Cervical disc disorder Resolved Urinary tract infectious disease UTI Resolved Pain in cervical spine Resolved Acute sinusitis Resolv ed Nephrolithiasis Resolv ed Mononeuritis Resolved Renal colic on right side Resolved Procedures Procedure Date Performed Status Urine Culture August 25, 2020 completed US Echo complete December 27, 2019 9:20am completed CT Maxillofacial area w/o cont November 21, 2019 12:05pm completed Relevant Diagnostic Tests and/or Laboratory Data Laboratory Results Test Date/Time Result Interpretation Reference Range Result Comment Performing Site Thyroid Stimulating Hormone (TSH) Ap 2019 9:20am 1.04 uIU/mL 0.35-5.50 [facility], [address] [place], [place] [id number] Thyroxine (T4) December 18, 2019 9:20am 8.8 ug/dL Performed at: RN - [facility] [address] [id number] Director: Priyanka Her MD, Phone: [phone] [facility] , [address] [facility] [id number] Microbiology Results Procedure Source Result Collection Date/Time Result Date/Time Result Comment Performing Site Urine Culture Urine,cath August 25, 2020 11:00am August 27, 2020 7:12am [facility], [address] [place] [id number] Diagnostic Imaging Reports Report Dictated Date/Time Dictated By Status Radiology Report November 21, 2019 2:13pm Donnell Maldonado MD completed [place] [id number] [place] [address] [phone] NAME SEX PT STATUS ACCOUNT NUMBER ALEKSANDR BEAL REG REF [id number] ORDERING PHYSICIAN LOCATION MEDICAL RECORD NO. Juliano Aguirre M.D. CT [id number] ATTENDING PHYSICIAN DATE OF DATE OF EXAM/TIME Juliano Aguirre MD 1975 11/21/19 / 1305 TYPE / EXAM CT Maxillofacial area w/o cont REASON FOR EXAM persistent sinus pressure and fatigue COMPARISON: July 09, 2014 FINDINGS: CT scan of the maxillofacial bones show no fracture. The bony rios of the sinuses and orbits are intact. A tiny mucous retention cyst is seen at the apex of the right maxillary sinus. Other portions of the paranasal sinuses are clear, as are the size outflow tracts. Mastoid air cells and middle ears are also clear. Ossicular chains are intact. The zygomatic arches appear intact. IMPRESSION: 1. Small mucous retention cyst, right maxillary sinus. 2. Paranasal sinuses and size outflow tracts otherwise essentially clear. Dose reduction was performed utilizing CARE dose with automated adjustment of the kV and MAS according to patient size, iterative reconstruction, automated exposure control, as well as adaptive dose shielding. Reported By Donnell Maldonado MD on 11/21/19 1413 Signed By Donnell Maldonado MD on 11/21/19 1416 Date Time CC: Juliano Aguirre M.D.; Donnell Maldonado MD Techn: ANKITA Trans Dt/Tm: Trans by: DT Prt Dt/Tm: : Total DLP = 107.00 mGy-cm : Total Radiation Dose = 0.3317 mSv Lifetime Dose: 18.1367 mSv Radiology Report December 27, 2019 10:23am Henrik oFx completed [facility] [address] [place] [address] [phone] NAME SEX PT STATUS ACCOUNT NUMBER ALEKSANDR BEAL REG REF [id number] ORDERING PHYSICIAN LOCATION MEDICAL RECORD NO. Alexy John MD [id number] ATTENDING PHYSICIAN DATE OF DATE OF EXAM/TIME Juliano Aguirre MD 1975 12/27/19 / 1020 TYPE / EXAM US Echo complete REASON FOR EXAM R/O PULMONARY HYPERTENSION ECHOCARDIOGRAM 12/27/2019 PROCEDURE Echocardiography with Doppler color flow examination. INDICATIONS FOR PROCEDURE Heart murmur. Possible pulmonary hypertension. CHAMBER DIMENSIONS LV diastole 5.3, LV systole 3.9. Posterior wall 1.0, septum 1.1. Left atrium 4.3, aortic root 3.1. 2D COMMENTS 1. There is mild left atrial dilatation . Right atrium is at the upper limit of normal. Normal left ventricle, right ventricle, and aortic root. 2. Aortic valve sclerosis without steno sis. Mitral anular calcification. Normal tricuspid valve. Pulmonic valve not optimally visualized. 3. Estimated ejection fraction 60%. 4. No regional wall motion abnormality. 5. Normal right ventricular function. 6. No left ventricular thrombus. 7. Trivial pericardial effusion, primar dale posteriorly. 8. Inferior vena cava not visualized. 9. The rhythm is sinus. DOPPLER AND COLOR FLOW 1. Abnormal mitral valve inflow pattern , suggesting diastolic dysfunction. Tissue Doppler not performed. 2. Trivial to mild mitral regurgitation . 3. Mild tricuspid regurgitation, yieldi ng an RV systolic pressure of 38 mmHg. IMPRESSION 1. Technically difficult study. 2. Normal left and right ventricular sy stolic function. " 3. Possible diastolic dysfunction. 4. Mild tricuspid regurgitation, with b orderline pulmonary pressure of 38 mmHg. 5. Trace to mild mitral regurgitation. RECOMMENDATION Correlate clinically. Reported By Henrik Fox MD on 12/27/19 1023 Signed By Henrik Fox MD on 01/14/20 1034 <<Signature on File>> Date Time CC: Juliano Aguirre M.D.; Henrik Fox M.D. Techn: SHIRLEY Trans Dt/Tm: 12/27/19 1338 Trans by: KARAN Prt Dt/Tm: : Total DLP = 0.00 mGy-cm : Total Radiation Dose = 0.0000 mSv Lifetime Dose: 18.1367 mSv Health Concerns Health Concerns may be documented in an alternate section. Advance Directives Advance Directive Response Recorded Date/Time Advanced Directive No Fe bruary 2020 3:18pm Does Patient have a DNR? No October 02, 2020 3:18pm Healthcare Proxy No Febr uary 2020 3:18pm Living Will No October 02, 2020 3:18pm Chief Complaint and Reason for Visit Chief Complaint Sinus infection Abdominal pain PERSISTENT SINUS PRESSURE & FATIGUE PT HAS THE ORDER HEART MURMUR Urinary complaint lab Reason for Visit Gross hematuria Encounters Encounter Location(s) Ar rival/Admit Date Discharge/Depart Date Provider(s) Departed Physician/Provider Office Visit -[facility] October 08, 2019 1:57pm October 08, 2019 2:20pm Juliano Aguirre Departed Physician/Provider Office Visit -[facility] October 18, 2019 11:39am October 18, 2019 12:36pm Juliano Aguirre Registered Referred -Cat Scan November 21, 2019 12:00pm Juliano Aguirre Registered Referred -Laboratory December 18, 2019 9:00am Alexy John MD Registered Referred -Ultrasound December 27, 2019 8:26am Alexy John MD Departed Physician/Provider Office Visit -[facility] August 25, 2020 10:38am August 25, 2020 11:03am Juliano Aguirre Registered Referred -Lab Drop Off August 25, 2020 12:42pm Juliano Aguirre Departed Physician/Provider Office Visit -[facility] October 08, 2020 8:46am October 08, 2020 9:08am Juliano Aguirre Recent Diagnosis Onset Date Gross hematuria Assessments Diagnosis Onset Date Res olution Status Gross hematuria acute Family History Relationship Condition A ge at Onset Recorded Date/Time Not Specified Diabetes mellitus Unknown Hypocholesterolemia Un known Multiple sclerosis Unk nown Hypertension Unknown Asthma Unknown Functional Status No Functional Status information available Goals Goals may be documented in an alternate section. Immunizations No Immunization Information Available Mental Status No Mental Status Information Available Medical Equipment No Medical Equipment Information available Insurance Providers Guarantor ALEKSANDR Thao EMIGDIO Address [address] [address] Contact Info. Home Phone: Payer Policy Id Coverage Id Subscriber's Name Subscriber Id Effective Date Expiration Date BC/BS [facility] [id number] ALEKSANDR BEAL [id number] BC/BS OF [place] [id number] ALEKSANDR BEAL -- [address] [employer] (Commercial) [id number] ALEKSANDR L BEAL [id number] BC/BS OF [place] [id number] ALEKSANDR Thao BEAL [id number] [facility] [place] [id number] ALEKSANDR BEAL [id number] 2017 Self Pay Self N/A Plan of Treatment she may have a uti, so will get a culture. if it is negative, will need to consider urology referral even though she is not a smoker. i am not certain that she has sinusitis, but i don't know what else would respon d to ceftin, so will treat her for 2 more weeks and recheck then. the persistence of the flank pain along with these nonspecific symptoms make me wonder about somatization. offered referral for co lonoscopy, but she deferred. the infection is not completely resolved, so will add 7 more days of ceftin. re check in 10 days for the abdominal pain and stay on miralax. she may need a colonoscopy. Future Tests Future scheduled test information is unavailable Pending Tests Pending diagnostic test information is unavailable Future Visits Future appointment information is unavailable Referrals to Other Providers Referral information is unavailable Future Procedures Future procedure information is unavailable Future Medications Future medication information is unavailable Patient Instructions Patient instructions are unavailable Social History Smoking Status Status Date of Observation Never smoker October 02, 2020 3:18 pm Observation Status Date of Observation Not October 02, 2020 Observation Status Observation Response Slava e of Response Smoking Status Never smoker October 02, 2020 3:18pm Alcohol Use No October 02, 2020 3:18pm Substance Use No Februar 2020 3:18pm Assigned Sex Female Vital Signs Vital Reading Result Ref erence Range Collection Date/Time Weight 309.00 [lb_av] October 08, 2019 2:04pm Body Temperature 98.2 [degF] 97.6-99.5 October 08, 2019 2:04pm Heart Rate 73 /min 60-100 October 08, 2019 2:04pm Respiratory rate 16 /min 12-October 08, 2019 2:04pm Oxygen saturation by Pulse oximetry 97 % 95- 100 October 08, 2019 2:04pm BP Systolic 128 mm[Hg] October 08, 2019 2:04pm BP Diastolic 74 mm[Hg] October 08, 2019 2:04pm Weight 303.00 [lb_av] October 18, 2019 12:13pm Body Temperature 98.3 [degF] 97.6-99.5 October 18, 2019 12:13pm Heart Rate 70 /min 60-100 October 18, 2019 12:13pm Oxygen saturation by Pulse oximetry 96 % 95- 100 October 18, 2019 12:13pm BP Systolic 140 mm[Hg] October 18, 2019 12:13pm BP Diastolic 78 mm[Hg] October 18, 2019 12:13pm Body Temperature 99.0 [degF] 97.6-99.5 August 25, 2020 10:44am Heart Rate 92 /min 60-100 August 25, 2020 10:44am Respiratory rate 18 /min -August 25, 2020 10:44am Oxygen saturation by Pulse oximetry 99 % 95- 100 August 25, 2020 10:44am BP Systolic 174 mm[Hg] August 25, 2020 10:44am BP Diastolic 78 mm[Hg] August 25, 2020 10:44am
--- OUTSIDE RECORDS SUMMARY | 2020-10-16 08:56 | CCD ---
Author Author [facility] Organization [facility] Address Unknown Phone Unavailable Care Team Providers Care Bank Manager Name Role Phone DanielMaritza kramer Unavailable PROBLEMS Type Condition ICD9-CM Code [id number] Code Onset Dates Condition S tatus W/U Status Risk SNOMED Code Notes Problem Kidney stones N20.0 Active confirmed 331481 07 Problem Ureteral stone with hydronephrosis N13.2 Activ e confirmed 803048102 Problem Kidney stone N20.0 Active confirmed 1927058 7 ALLERGIES Allergen (clinical drug ingredient) Drug/Non Drug Allergy do cumented on EMR Reaction Allergy Type Onset Date Status gabapentin Gabapentin(ND Code:[address]-43) Unknown Drug Allergy Active topiramate Topamax(ND Code:[address]-37) Unknown Drug Allergy Active Azithromycin (5 day) Unknown Drug Allergy Ac tive Seasonal Allergies Unknown Non Drug Allergy Active Lactose Unknown Non Drug Allergy Active ENCOUNTERS from 1975 to 2020-10-09 Encounter Location Date Provider Diagnosis [facility] Urology [address] [place] [address] Sep Maritza Noel IMMUNIZATIONS No Information SOCIAL HISTORY Sex Assigned At : Social History Observation Description Sex Assigned At Unknown Language: Question Answer Notes Languages spoken: Korean Nondenominational: Question Answer Notes Nondenominational No catholic beliefs that would impact health care. Sexual [...] Notes Start Da te End Date Status Vitamin B Complex-C - Orally Act tyrese [place] 3 120-180 MG 1 capsule Orally Once a day Not-Taking Loratadine 10 MG 1 tablet Orally Once a day for 30 day(s) Active Methotrexate 2.5 MG 6 tabs Orally fridays Not-Taking Aspirin 81 MG Orally Not-Taking Flomax 0.4 MG 1 capsule Orally Once a day for 30 day(s) May, Not-Taking Multivitamins as directed Orally Act tyrese Percocet 5-325 MG 1 tablet as needed Orally every 6 hrs, MDD 4 f or 7 days May, Not-Taking Doxycycline Hyclate 100 MG 1 capsule Orally every 12 hrs Not-Taking Ascorbic Acid 500 MG 1 tablet Orally Once a day Not-Taking Ciprofloxacin HCl 500 MG 1 tablet with evening meal Orally Once a day Not-Taking Topiramate 50 MG 1 tablet Orally Twice a day Not-Taking Methotrexate 2.5 MG Orally Not-T aking Augmentin 875-125 MG 1 tablet Orally Twice a day for 10 day(s) May, Not-Taking Percocet 5-325 MG 1 tablet as needed Orally every 6 hrs, MDD 4 f or 7 days Jun, Not-Taking FLUoxetine HCl 10 MG 1 capsule in the morning Orally Once a day Not-Taking Atenolol-Chlorthalidone 50-25 MG 1 tablet Orally Once a day Not-Taking Flomax 0.4 MG 1 capsule Orally Once a day for 30 day(s) Jun, Not-Taking Prempro 0.45-1.5 MG 1 tablet Orally Once a day Not-Taking Cholecalciferol 1000 UNIT 1 capsule Orally Once a day Not-Taking Clonidine HCl 0.1 MG 1 tablet at bedtime Orally Once a day Not-Taking Simvastatin 40 MG 1 tablet in the evening Orally Once a day Not-Taking Folic Acid 1 MG 1 tablet Orally Once a day Not-Taking Vitamin C 500 MG as directed Orally Active Percocet 5-325 MG 1 tablet Orally every 6 hrs as needed for pain (MDD4) Aug, Active Oxybutynin Chloride 5 MG 1 tablet Orally Twice a day for 30 day( s) Aug, Active Estradiol 2 MG 1 tablet Orally Daily for Three Weeks, 1 Week off Active PROCEDURES No Information RESULTS No Results REASON FOR VISIT question MEDICAL (GENERAL) HISTORY Type Description Date Medical [...] Information ASSESSMENTS No Information PLAN OF TREATMENT Next Appt Details Provider Name:Will Dove, 2020-10-26 10:30:00 AM, [address], [place], [address], Insurance Providers Payer Name Payer Address Payer Phone Insured Name Patient Relati onship to Insured Coverage Start Date Coverage End Date [employer]ERA PPO [phone] [facility] [email or web address] [address] ALEKSANDR BEAL self
--- OUTSIDE RECORDS SUMMARY | 2020-10-16 08:57 | CCD ---
Author Author [facility] Organization [facility] Address Unknown Phone Unavailable Care Team Providers Care Pipe Threading Machine Operator Name Role Phone DanielMariangel kramerhel Unavailable PROBLEMS Type Condition ICD9-CM Code [id number] Code Onset Dates Condition S tatus SNOMED Code Notes Problem Kidney stone N20.0 Active 22962313 Problem Kidney stones N20.0 Active 29005123 ALLERGIES Allergen (clinical drug ingredient) Drug/Non Drug Allergy do cumented on EMR Reaction Allergy Type Onset Date Status gabapentin Gabapentin(ND Code:[address]-07) Unknown Drug Allergy Active topiramate Topamax(ND Code:[address]-38) Unknown Drug Allergy Active Azithromycin (5 day) Unknown Drug Allergy Ac tive Seasonal Allergies Unknown Non Drug Allergy Active Lactose Unknown Non Drug Allergy Active ENCOUNTERS from 1975 to 2020-09-04 Encounter Location Date Provider Diagnosis [facility] Urology [id number] [place] [address] [place] [address] Aug Maritza Noel IMMUNIZATIONS No Information SOCIAL HISTORY Sex Assigned At : Social History Observation Description Sex Assigned At Unknown Language: Question Answer Notes Languages spoken: Lithuanian Faith: Question Answer Notes Faith No nondenominational beliefs that would impact health care. Sexual [...] Notes Start Da te End Date Status Doxycycline Hyclate 100 MG 1 capsule Orally every 12 hrs Not-Taking Vitamin C 500 MG as directed Orally Active Aspirin 81 MG Orally Not-Taking Percocet 5-325 MG 1 tablet as needed Orally every 6 hrs, MDD 4 f or 7 days May, Not-Taking Percocet 5-325 MG 1 tablet as needed Orally every 6 hrs, MDD 4 f or 7 days Jun, Not-Taking Oxybutynin Chloride 5 MG 1 tablet Orally Twice a day for 30 day( s) Aug, Active Flomax 0.4 MG 1 capsule Orally Once a day for 30 day(s) Jun, Not-Taking Flomax 0.4 MG 1 capsule Orally Once a day for 30 day(s) May, Not-Taking Prempro 0.45-1.5 MG 1 tablet Orally Once a day Not-Taking Ascorbic Acid 500 MG 1 tablet Orally Once a day Not-Taking Ciprofloxacin HCl 500 MG 1 tablet with evening meal Orally Once a day Not-Taking Multivitamins as directed Orally Act tyrese FLUoxetine HCl 10 MG 1 capsule in the morning Orally Once a day Not-Taking Augmentin 875-125 MG 1 tablet Orally Twice a day for 10 day(s) May, Not-Taking [place] 3 120-180 MG 1 capsule Orally Once a day Not-Taking Loratadine 10 MG 1 tablet Orally Once a day for 30 day(s) Active Atenolol-Chlorthalidone 50-25 MG 1 tablet Orally Once a day Not-Taking Methotrexate 2.5 MG 6 tabs Orally fridays Not-Taking Percocet 5-325 MG 1 tablet Orally every 6 hrs as needed for pain (MDD4) Aug, Active Simvastatin 40 MG 1 tablet in the evening Orally Once a day Not-Taking Clonidine HCl 0.1 MG 1 tablet at bedtime Orally Once a day Not-Taking Topiramate 50 MG 1 tablet Orally Twice a day Not-Taking Cholecalciferol 1000 UNIT 1 capsule Orally Once a day Not-Taking Methotrexate 2.5 MG Orally Not-T aking Estradiol 2 MG 1 tablet Orally Daily for Three Weeks, 1 Week off Active Folic Acid 1 MG 1 tablet Orally Once a day Not-Taking Vitamin B Complex-C - Orally Act tyrese PROCEDURES No Information RESULTS No Results REASON FOR VISIT Update Demographics - Personal Info MEDICAL (GENERAL) HISTORY Type Description Date Medical [...] Medication Name Sig Start Date Stop Date Oxybutynin Chloride 5 MG 1 tablet Orally Twice a day for 30 day( s) Aug, Percocet 5-325 MG 1 tablet Orally every 6 hrs as needed fo r pain (MDD4) Aug, Insurance Providers Payer Name Payer Address Payer Phone Insured Name Patient Relati onship to Insured Coverage Start Date Coverage End Date BCBS ALEM CABRERA PPO [phone] [facility] [employer] [place] [facility] [address] ALEKSANDR BEAL self
--- OUTSIDE RECORDS SUMMARY | 2020-10-16 08:57 | CCD ---
Author Author [facility] [employer] [facility] Organization [facility] Address Unknown Phone Unavailable Care Team Providers Care Paver Operator Name Role Phone DanielMariangel kramerhel Unavailable PROBLEMS Type Condition ICD9-CM Code [id number] Code Onset Dates Condition S tatus SNOMED Code Notes Problem Kidney stone N20.0 Active 50412185 Problem Kidney stones N20.0 Active 51635116 ALLERGIES Allergen (clinical drug ingredient) Drug/Non Drug Allergy do cumented on EMR Reaction Allergy Type Onset Date Status gabapentin Gabapentin(ND Code:[address]-66) Unknown Drug Allergy Active topiramate Topamax(ND Code:[address]-80) Unknown Drug Allergy Active Azithromycin (5 day) Unknown Drug Allergy Ac tive Seasonal Allergies Unknown Non Drug Allergy Active Lactose Unknown Non Drug Allergy Active ENCOUNTERS from 1975 to 2020-09-05 Encounter Location Date Provider Diagnosis [facility] Urology [id number] [place] [address] [place] [address] Aug Maritza Noel IMMUNIZATIONS No Information SOCIAL HISTORY Sex Assigned At : Social History Observation Description Sex Assigned At Unknown Language: Question Answer Notes Languages spoken: Wolof Hindu: Question Answer Notes Hindu No judaism beliefs that would impact health care. Sexual [...] a day for 10 day(s) May, Not-Taking [place] 3 120-180 MG 1 capsule Orally Once [...] Information RESULTS No Results REASON FOR VISIT pain MEDICAL (GENERAL) HISTORY Type Description Date Medical [...] Date [employer]RERA PPO [phone] [facility] [place] [address] LAEKSANDR BEAL self
--- OUTSIDE RECORDS SUMMARY | 2020-10-16 08:57 | CCD ---
Author Author [facility] [employer] [facility] Organization [facility] Address Unknown Phone Unavailable Care Team Providers Care Blood Bank Calendar Control Clerk Name Role Phone DanielMaritza kramer Unavailable PROBLEMS Type Condition ICD9-CM Code [id number] Code Onset Dates Condition S tatus SNOMED Code Notes Problem Kidney stone N20.0 Active 50818741 Problem Kidney stones N20.0 Active 57924333 ALLERGIES Allergen (clinical drug ingredient) Drug/Non Drug Allergy do cumented on EMR Reaction Allergy Type Onset Date Status gabapentin Gabapentin(ND Code:[address]-74) Unknown Drug Allergy Active topiramate Topamax(ND Code:[address]-61) Unknown Drug Allergy Active Azithromycin (5 day) Unknown Drug Allergy Ac tive Seasonal Allergies Unknown Non Drug Allergy Active Lactose Unknown Non Drug Allergy Active ENCOUNTERS from 1975 to 2020-09-03 Encounter Location Date Provider Diagnosis [facility] Urology [address] [place] [address] [place] [address] Aug Maritza Noel Gross hematuria R31.0 and Urinary urgenc y R39.15 IMMUNIZATIONS No Information SOCIAL HISTORY Sex Assigned At : Social History Observation Description Sex Assigned At Unknown Language: Question Answer Notes Languages spoken: Nicaraguan Mandaen: Question Answer Notes Mandaen No hindu beliefs that would impact health care. Sexual [...] REASON FOR REFERRAL No Information VITAL SIGNS Weight 292 lbs Aug, Height 64 in Aug, BMI 50.12 kg/m2 Aug, Heart Rate 101 /min Aug, Respiratory Rate 18 /min Aug, Temperature 97.6 degrees Fahrenheit Aug, Oximetry 92 Aug, Blood pressure systolic 120 mm Hg Aug, Blood pressure diastolic 74 mm Hg Aug, MEDICATIONS Medication SIG (Take, Route, Frequency, Duration) [...] a day for 10 day(s) May, Not-Taking [place] 3 120-180 MG 1 capsule Orally Once [...] Orally Act tyrese PROCEDURES No Information RESULTS Component Value Reference Range UA URINALYSIS Reviewed date:09/01/2020 13:45:20 Interpretation: Performing Lab:[facility] LABORATORY [address] [address] , ,[place] [address] URINE CULTURE Reviewed date:09/02/2020 09:43:35 Interpretation: Performing Lab:[facility] LABORATORY [address] [address] , ,[place] [address] NON MANAGER [employer] CYTOLOGY REQ FOR SERVI Reviewed date:09/02/2020 15:40:42 Interpretation: Performing Lab:[facility] LABORATORY [address] [address] , ,[place] [address] URINE REASON FOR VISIT blood in urine dr candida garcia MEDICAL (GENERAL) HISTORY Type Description Date Medical [...] No Information FUNCTIONAL STATUS No Information ASSESSMENTS Encounter Date Diagnosis Assessment Notes Treatment Notes Treatm ent Clinical Notes Aug, Gross hematuria (ICD-10 - R31.0) Aug, Urinary urgency (ICD-10 - R39.15) PLAN OF TREATMENT Medication Medication Name Sig Start Date Stop Date Oxybutynin Chloride 5 MG 1 tablet Orally Twice a day for 30 day( s) Aug, Percocet 5-325 MG 1 tablet Orally every 6 hrs as needed fo r pain (MDD4) Aug, Treatment Notes Test Name Order Date Basic Metabolic Profile (BMP) 2020-09-03 CT Scan : Urogram (Abdomen/Pelvis) 2020-09-03 uro PVR (Post Voiding Residual) Bladder Scan 7 Next Appt Details we will call with CT results Reason: Insurance Providers Payer Name Payer Address Payer Phone Insured Name Patient Relati onship to Insured Coverage Start Date Coverage End Date BCBS [place] [employer] PPO [phone] [facility] [place] [address] ALEKSANDR BEAL self
--- OUTSIDE RECORDS SUMMARY | 2020-10-16 08:57 | CCD ---
Author Author [facility] Organization [facility] Address Unknown Phone Unavailable Care Team Providers Care Community Administrator Name Role Phone Maritza Noel Unavailable PROBLEMS Type Condition ICD9-CM Code [id number] Code Onset Dates Condition S tatus SNOMED Code Notes Problem Kidney stones N20.0 Active 20232099 Problem Ureteral stone with hydronephrosis N13.2 Activ e 499852185 Problem Kidney stone N20.0 Active 63214523 ALLERGIES Allergen (clinical drug ingredient) Drug/Non Drug Allergy do cumented on EMR Reaction Allergy Type Onset Date Status gabapentin Gabapentin(ND Code:[address]-90) Unknown Drug Allergy Active topiramate Topamax(ND Code:[address]-68) Unknown Drug Allergy Active Azithromycin (5 day) Unknown Drug Allergy Ac tive Seasonal Allergies Unknown Non Drug Allergy Active Lactose Unknown Non Drug Allergy Active ENCOUNTERS from 1975 to 2020-09-14 Encounter Location Date Provider Diagnosis [facility] Urology [address] [place] [address] [place] [address] Aug Maritza Bert Ureteral stone with hydronephrosis N13.2 and Pre-op testing Z01.818 IMMUNIZATIONS No Information SOCIAL HISTORY Sex Assigned At : Social History Observation Description Sex Assigned At Unknown Language: Question Answer Notes Languages spoken: Sami Mandaeism: Question Answer Notes Mandaeism No orthodoxy beliefs that would impact health care. Sexual [...] Vitamin B Complex-C - Orally Act tyrese [place] 3 120-180 MG 1 capsule Orally Once [...] Information RESULTS No Results REASON FOR VISIT CT results MEDICAL (GENERAL) HISTORY Type Description Date Medical [...] Treatment Notes Treatm ent Clinical Notes Aug, Ureteral stone with hydronephrosis (ICD-10 - N13 .2) Aug, Pre-op testing (ICD-10 - Z01.818) PLAN OF TREATMENT Treatment Notes Test Name Order Date CBC - Complete Blood Count 2020-09-14 PT & APTT 2020-09-14 URINE CULTURE 2020-09-14 UA URINALYSIS 2020-09-14 Basic Metabolic Profile (BMP) 2020-09-14 Insurance Providers Payer Name Payer Address Payer Phone Insured Name Patient Relati onship to Insured Coverage Start Date Coverage End Date BCBS [place] PPO [phone] [facility] [employer] [place] [address] ALEKSANDR BEAL self
--- OUTSIDE RECORDS SUMMARY | 2020-10-16 08:57 | CCD | Continuity of Care Document ---
Author Author [facility] Organization [facility] Address [address] [place] [address] Phone Support Name Relationship Address Phone Victor Manuel Aguirre PRS [facility] [place] [address] [place] [address] [email or web address] Charleen John PRS [address] [facility] [address] [place] [address] Allergies, Adverse Reactions, Alerts Allergen Type Severity [...] 1 SPRAY BROWN 2 Times Per Day May 27, 2019 7:38am September 05, 2019 [...] 100 MG PO 2 Times Per Day September 05, 2019 1 :07pm September 23, [...] (Vitamin C) (Vitamin C [facility]) 500 MG tablet Active 500 MG [...] Once Per Day May 09, 2017 [facility] Vitamin B Comp With C No.4 (Super B Comp kika + C) 150 MG tablet Active 150 MG PO Once Per Day May 09, 2017 2:00am Xzafs-3d-Llp-Epa-Fish Oil Discontinued 1 EACH PO Once Per Day May 09, 2017 2:00am December 19, 2017 7:31am Tamsulosin (Flomax) 0.4 MG capsule D iscontinued 0.4 MG PO Once Per Day May 09, 2017 5:12am May 31, 2017 11:20am Oxycodone-Acetaminophen Discontinued 1 TAB PO Every 6 hours May 09 7 6:01May 31, 2017 11:20am Folic Acid Discontinued 1 [...] D2) (Drisdol) 50,000 unit caps ule Discontinued 31026 UNITS PO 1 Time Per Week November [...] 01, 2014 2:57pm Ergocalciferol (Vitamin D2) (Drisdol) 75360 UNIT capsu le Discontinued 47228 UNITS PO as directed May 22, 2014 [...] TAKE MEDROL DOSEPACK DIRECTED Syringe With Needle (Instructional Technology Instructor Syringe) 1 EACH syringe Discontinued 1 EACH MC ONE TIME September 15, 2015 9:24am September 152015 3:44pm Amoxicillin-Pot Clavulanate (Augmentin 8 75-125 Tablet) 1 EACH tablet Discontinued 875 MG PO Every 12 Hours September 15, 2015 9:41am October 062015 9:55am Syringe With Needle (Instructional Technology Instructor Syringe) 1 EACH syringe Discontinued 1 EACH MC ONE TIME September 18, 2015 10:03am August 292015 2:44pm Fluconazole (Diflucan) 150 MG tablet Discontinued 150 MG PO 1 Time/Once September 21, 2015 9:16am October 06, 2015 9:55am Syringe With Needle (Instructional Technology Instructor Syringe) 1 EACH syringe Discontinued 1 EACH MC ONE TIME September 21, 2015 10:32am August 292015 1:27pm Syringe With Needle (Instructional Technology Instructor Syringe) 1 EACH syringe Discontinued 1 EACH MC ONE TIME October 06, 2015 10:02am October 06, 2015 11:30am Levofloxacin (Levaquin) 750 MG tablet Discontinued 750 MG PO Once Per Day October 07, 2015 4:39pm October 16, 2015 8:03am Syringe With Needle (Instructional Technology Instructor Syringe) 1 EACH syringe Discontinued 1 EACH MC ONE TIME 2 October 09, 2015 10:59am October 09, 2015 11:44am Fluconazole (Diflucan) 150 MG tablet Discontinued 150 MG PO 1 Time/Once 1 October 09, 2015 12:22pm October 16, 2015 8:03am Syringe With Needle (Instructional Technology Instructor Syringe) 1 EACH syringe Discontinued 1 EACH MC ONE TIME 2 October 14, 2015 11:20am October 14, 2015 3:29pm Syringe With Needle (Instructional Technology Instructor Syringe) 1 EACH syringe Discontinued 1 EACH MC ONE TIME 2 October 14, 2015 11:21am October 14, 2015 3:28pm Sulfacetamide Sodium (Acne) (Klaron) 118 ML suspension Discontinued 118 ML TP Once Per Day November 03, 2015 3:07pm January 25 6:47pm Apply to face once daily Doxycycline Hyclate Discontinued 100 MG PO Once Per Day November 03, 2015 3:0 7pm January 26, 2016 6:49pm one pill by [facility] once daily. After food. Do not take [...] December 17, 2015 5:35pm Syringe With Needle (Instructional Technology Instructor Syringe) 1 EACH syringe Discontinued 1 EACH MC ONE TIME 2 December 09, 2015 9:09am December 09, 2015 2:32pm Syringe With Needle (Instructional Technology Instructor Syringe) 1 EACH syringe Discontinued 1 EACH MC ONE TIME 2 December 11, 2015 12:17pm December 11, 2015 12:18pm Syringe With Needle (Instructional Technology Instructor Syringe) 1 EACH syringe Discontinued 1 EACH MC ONE TIME 2 December 14, 2015 12:22pm December 14, 2015 3:00pm Syringe With Needle (Instructional Technology Instructor Syringe) 1 EACH syringe Discontinued 1 EACH MC ONE TIME 2 December 17, 2015 2:05pm December 17, 2015 5:22pm Tramadol Discontinued 1 TAB PO 2 Times Per Day December 17, 2015 6:30pm January 08, 2016 6:08pm Syringe With Needle (Instructional Technology Instructor Syringe) 1 EACH syringe Discontinued 1 EACH MC ONE TIME 2 December 22, 2015 11:44am December 22, 2015 12:16pm Syringe With Needle (Instructional Technology Instructor Syringe) 1 EACH syringe Discontinued 1 EACH MC ONE TIME December 28, 2015 9:48am December 29, 2015 11:46am Syringe With Needle (Instructional Technology Instructor Syringe) 1 EACH syringe Discontinued 1 EACH MC ONE TIME December 30, 2015 3:18pm December 31, 2015 5:19pm Syringe With Needle (Instructional Technology Instructor Syringe) 1 EACH syringe Discontinued 1 EACH MC ONE TIME January 01, 2016 10:04am January 01, 2016 12:32p m Syringe With Needle (Instructional Technology Instructor Syringe) 1 EACH syringe Discontinued 1 EACH MC ONE TIME 2 January 04, 2016 3:01pm January 08, 2016 6:59am Hydrochlorothiazide Discontinued 25 MG PO Once Per Day January 05, 2016 1:58 pm February 24, 2016 6:02pm Start with 1/ 2 tab po daily. Increase to 1 tab if tolerated. Syringe With Needle (Instructional Technology Instructor Syringe) 1 EACH syringe Discontinued 1 EACH MC ONE TIME January 08, 2016 7:53am January 08, 2016 12:27pm Tramadol Discontinued 1 TAB PO 2 Times Per Day January 08, 2016 6:09pm February 05, 2016 12:30pm Syringe With Needle (Instructional Technology Instructor Syringe) 1 EACH syringe Discontinued 1 EACH MC ONE TIME January 11, 2016 8:56am January 13, 2016 6:51a m Syringe With Needle (Instructional Technology Instructor Syringe) 1 EACH syringe Discontinued 1 EACH MC ONE TIME January 15, 2016 10:10am January 14 6 2:44pm Syringe With Needle (Instructional Technology Instructor Syringe) 1 EACH syringe Discontinued 1 EACH MC ONE TIME January 18, 2016 8:10am January 18, 2016 3:19p m Syringe With Needle (Instructional Technology Instructor Syringe) 1 EACH syringe Discontinued 1 EACH MC ONE TIME January 20, 2016 12:56pm January 20 6 4:02pm Syringe With Needle (Instructional Technology Instructor Syringe) 1 EACH syringe Discontinued 1 EACH MC ONE TIME 2 January 22, 2016 11:03am May 27th, 201 6 2:34pm Conjugated Estrogens (Premarin) 0.9 MG tablet Discontinued 0.9 MG PO Once Per Day February 05, 2016 1:55pm July 06, 2016 9:13am take 1 tablet by mouth daily as directed Syringe With Needle (Instructional Technology Instructor Syringe) 1 EACH syringe Discontinued 1 EACH MC ONE TIME 2 February 09, 2016 1:44pm February 11 16 1:04pm Syringe With Needle (Instructional Technology Instructor Syringe) 1 EACH syringe Discontinued 1 EACH MC ONE TIME 2 February 12, 2016 10:44am February 11, 2 016 12:58pm Syringe With Needle (Instructional Technology Instructor Syringe) 1 EACH syringe Discontinued 1 EACH MC ONE TIME February 16, 2016 12:50pm February 15, 2 016 3:00pm Syringe With Needle (Instructional Technology Instructor Syringe) 1 EACH syringe Discontinued 1 EACH MC ONE TIME February 18, 2016 5:23pm February 17 5:31pm Ciprofloxacin Hcl Discontinued 1 TAB PO 2 Times Per Day February 24, 2016 2:2 6pm March 09, 2016 8:02am Syringe With Needle (Instructional Technology Instructor Syringe) 1 EACH syringe Discontinued 1 EACH MC ONE TIME February 24, 2016 2:33pm February 25 6 11:23am Atenolol-Chlorthalidone (Tenoretic 50 Tablet) 1 EACH t ablet Discontinued 1 TAB PO Once Per Day February 24, 2016 6:02pm July 1:25pm Change from HCTZ Syringe With Needle (Instructional Technology Instructor Syringe) 1 EACH syringe Discontinued 1 EACH MC ONE TIME February 26, 2016 11:38am February 25 6 1:45pm Fluconazole (Diflucan) 150 MG tablet Discontinued 150 MG PO 1 Time/Once March 01, 2016 10:15 am March 09, 2016 8:02am Syringe With Needle (Instructional Technology Instructor Syringe) 1 EACH syringe Discontinued 1 EACH MC ONE TIME March 01, 2016 1:55pm March 01, 2016 2:09p m Syringe With Needle (Instructional Technology Instructor Syringe) 1 EACH syringe Discontinued 1 EACH MC ONE TIME 2 March 07, 2016 1:12pm March 08 2:47pm Syringe With Needle (Instructional Technology Instructor Syringe) 1 EACH syringe Discontinued 1 EACH MC ONE TIME 2 March 09, 2016 8:38am March 09 12:35pm Syringe With Needle (Instructional Technology Instructor Syringe) 1 EACH syringe Discontinued 1 EACH MC ONE TIME 2 March 11, 2016 11:59am March 14, 2 016 12:35pm Syringe With Needle (Instructional Technology Instructor Syringe) 1 EACH syringe Discontinued 1 EACH MC ONE TIME 2 March 14, 2016 11:10am March 14, 2 016 12:38pm Syringe With Needle (Instructional Technology Instructor Syringe) 1 EACH syringe Discontinued 1 EACH MC ONE TIME 1 2016 9:09am March 18 16 9:51am Syringe With Needle (Instructional Technology Instructor Syringe) 1 EACH syringe Discontinued 1 EACH MC ONE TIME 2 March 23, 2016 8:27am March 23, 20 16 2:36pm Syringe With Needle (Instructional Technology Instructor Syringe) 1 EACH syringe Discontinued 1 EACH MC ONE TIME March 28, 2016 11:01am March 28, 2016 11:08am Syringe With Needle (Instructional Technology Instructor Syringe) 1 EACH syringe Discontinued 1 EACH MC ONE TIME 2 April 01, 2016 10:02am April 01, 2016 12:07pm Syringe With Needle (Instructional Technology Instructor Syringe) 1 EACH syringe Discontinued 1 EACH MC ONE TIME April 04, 2016 1:56pm April 04, 2016 2:31pm Amoxicillin-Pot Clavulanate (Augmentin 8 75-125 Tablet) 1 EACH tablet Discontinued 875 MG PO Every 12 Hours April 05, 2016 12:11pm April 292015 10:43am Syringe With Needle (Instructional Technology Instructor Syringe) 1 EACH syringe Discontinued 1 EACH MC ONE TIME April 06, 2016 12:39pm March, 2015 10:51am Syringe With Needle (Instructional Technology Instructor Syringe) 1 EACH syringe Discontinued 1 EACH MC ONE TIME April 12, 2016 2:46pm March 8:13am Syringe With Needle (Instructional Technology Instructor Syringe) 1 EACH syringe Discontinued 1 EACH MC ONE TIME April 14, 2016 10:32am March, 2015 7:47am Syringe With Needle (Instructional Technology Instructor Syringe) 1 EACH syringe Discontinued 1 EACH MC ONE TIME April 18, 2016 2:40pm March 1:35pm Syringe With Needle (Instructional Technology Instructor Syringe) 1 EACH syringe Discontinued 1 EACH MC ONE TIME April 20, 2016 12:53pm March, 2015 12:01pm Syringe With Needle (Instructional Technology Instructor Syringe) 1 EACH syringe Discontinued 1 EACH MC ONE TIME April 22, 2016 11:26am March, 2015 12:04pm Syringe With Needle (Instructional Technology Instructor Syringe) 1 EACH syringe Discontinued 1 EACH MC ONE TIME 2 April 26, 2016 3:05pm April 282015 5:49pm Syringe With Needle (Instructional Technology Instructor Syringe) 1 EACH syringe Discontinued 1 EACH MC ONE TIME 2 April 28, 2016 5:43pm April 28, 2016 5:44pm Syringe With Needle (Instructional Technology Instructor Syringe) 1 EACH syringe Discontinued 1 EACH MC ONE TIME May 03, 2016 12:47pm Septembe r 2015 2:53pm Syringe With Needle (Instructional Technology Instructor Syringe) 1 EACH syringe Discontinued 1 EACH MC ONE TIME May 06, 2016 10:03am Septembe r 2015 11:38am Syringe With Needle (Instructional Technology Instructor Syringe) 1 EACH syringe Discontinued 1 EACH MC ONE TIME May 09, 2016 2:23pm Septembe r 2015 2:24pm Syringe With Needle (Instructional Technology Instructor Syringe) 1 EACH syringe Discontinued 1 EACH MC ONE TIME 2 May 13, 2016 1:01pm Septembe r 2015 10:38am Syringe With Needle (Instructional Technology Instructor Syringe) 1 EACH syringe Discontinued 1 EACH MC ONE TIME May 16, 2016 10:46am Septemb er 2015 11:08am Syringe With Needle (Instructional Technology Instructor Syringe) 1 EACH syringe Discontinued 1 EACH MC ONE TIME May 18, 2016 12:42pm Septemb er 2015 1:43pm Syringe With Needle (Instructional Technology Instructor Syringe) 1 EACH syringe Discontinued 1 EACH MC ONE TIME May 20, 2016 11:07am Septemb er 2015 2:54pm Syringe With Needle (Instructional Technology Instructor Syringe) 1 EACH syringe Discontinued 1 EACH MC ONE TIME May 23, 2016 9:55am Septembe r 2015 2:07pm Amoxicillin-Pot Clavulanate (Augmentin 8 75-125 Tablet) 1 EACH tablet Discontinued 875 MG PO Every 12 Hours May 24, 2016 11:01am June 06, 2016 7:31am Syringe With Needle (Instructional Technology Instructor Syringe) 1 EACH syringe Discontinued 1 EACH MC ONE TIME May 25, 2016 2:23pm Septembe r 2015 1:11pm Syringe With Needle (Instructional Technology Instructor Syringe) 1 EACH syringe Discontinued 1 EACH MC ONE TIME May 27, 2016 2:34pm May 30, 2016 11:28am Syringe With Needle (Instructional Technology Instructor Syringe) 1 EACH syringe Discontinued 1 EACH MC ONE TIME May 30, 2016 10:17am May 09, 2017 1:55am Syringe With Needle (Instructional Technology Instructor Syringe) 1 EACH syringe Discontinued 1 EACH MC ONE TIME June 02, 2016 3:07pm May 5:45pm Fluoxetine (Prozac) 20 MG capsule Di scontinued 1 CAP PO O nce Per Day June 06, 2016 8:49am October 05, 2016 4:32pm Syringe With Needle (Instructional Technology Instructor Syringe) 1 EACH syringe Discontinued 1 EACH MC ONE TIME June 06, 2016 12:02pm May 282015 1:50pm Syringe With Needle (Instructional Technology Instructor Syringe) 1 EACH syringe Discontinued 1 EACH MC ONE TIME June 14, 2016 1:12pm June 142015 1:18pm Syringe With Needle (Instructional Technology Instructor Syringe) 1 EACH syringe Discontinued 1 EACH MC ONE TIME June 17, 2016 10:02am May 292015 1:46pm Syringe With Needle (Instructional Technology Instructor Syringe) 1 EACH syringe Discontinued 1 EACH MC ONE TIME June 17, 2016 1:45pm June 172015 1:54pm Syringe With Needle (Instructional Technology Instructor Syringe) 1 EACH syringe Discontinued 1 EACH [...] 9:13am October 052016 4:32pm Syringe With Needle (Instructional Technology Instructor Syringe) 1 EACH syringe Discontinued 1 EACH MC ONE TIME July 11, 2016 1:31pm July 19, 2016 2:23pm Syringe With Needle (Instructional Technology Instructor Syringe) 1 EACH syringe Discontinued 1 EACH MC ONE TIME July 13, 2016 12:21pm July 19, 2016 2:22pm Syringe With Needle (Instructional Technology Instructor Syringe) 1 EACH syringe Discontinued 1 EACH MC ONE TIME July 15, 2016 10:48am July 19, 2016 12:56pm Doxycycline Hyclate Discontinued 100 MG PO 2 Times Per Day July 18, 2016 1:49pm August 24, 2016 9:59am Syringe With Needle (Instructional Technology Instructor Syringe) 1 EACH syringe Discontinued 1 EACH MC ONE TIME July 25, 2016 11:36am July 25, 2016 12:18pm Syringe With Needle (Instructional Technology Instructor Syringe) 1 EACH syringe Discontinued 1 EACH MC ONE TIME August 03, 2016 10:52am August 04, 2016 3:06pm Syringe With Needle (Instructional Technology Instructor Syringe) 1 EACH syringe Discontinued 1 EACH [...] medrol dosepack as directed Syringe With Needle (Instructional Technology Instructor Syringe) 1 EACH syringe Discontinued 1 EACH MC ONE TIME September 02, 2016 2:05pm August 1:52pm Syringe With Needle (Instructional Technology Instructor Syringe) 1 EACH syringe Discontinued 1 EACH MC ONE TIME September 07, 2016 12:23pm August 282016 4:03pm Syringe With Needle (Instructional Technology Instructor Syringe) 1 EACH syringe Discontinued 1 EACH MC ONE TIME September 15, 2016 6:23pm September 152016 6:27pm Syringe With Needle (Instructional Technology Instructor Syringe) 1 EACH syringe Discontinued 1 EACH MC ONE TIME September 22, 2016 12:16pm October 03, 2016 10:39am Syringe With Needle (Instructional Technology Instructor Syringe) 1 EACH syringe Discontinued 1 EACH [...] 4:32pm September 292016 2:06pm Syringe With Needle (Instructional Technology Instructor Syringe) 1 EACH syringe Discontinued 1 EACH MC ONE TIME 2 October 07, 2016 11:16am October 12, 2016 3:20pm Syringe With Needle (Instructional Technology Instructor Syringe) 1 EACH syringe Discontinued 1 EACH MC ONE TIME 2 October 11, 2016 10:42am October 12, 2016 3:13pm Fluconazole (Diflucan) 150 MG tablet Discontinued 150 MG PO 1 Time/Once October 17, 2016 9:56am October 26, 2016 10:22am december repeat i n 3-5 days if symptoms persist Syringe With Needle (Instructional Technology Instructor Syringe) 1 EACH syringe Discontinued 1 EACH [...] November 22, 2016 9:06am Syringe With Needle (Instructional Technology Instructor Syringe) 1 EACH syringe Discontinued 1 EACH MC ONE TIME November 04, 2016 9:52am May 092016 1:55am Syringe With Needle (Instructional Technology Instructor Syringe) 1 EACH syringe Discontinued 1 EACH MC ONE TIME 2 November 18, 2016 8:25am November 18, 2016 1:21pm Doxycycline Hyclate Discontinued 100 MG PO 2 Times Per Day November 22, 2016 10 :39am January 03, 2017 8:57am Methylprednisolone (Medrol*) 4 MG tablets,dose pack Discontinued 4 MG PO as directed November 25, 2016 1:34pm January 03 7 8:57am Syringe With Needle (Instructional Technology Instructor Syringe) 1 EACH syringe Discontinued 1 EACH MC ONE TIME 2 November 25, 2016 2:03pm November 25, 2016 2:06pm Fluoxetine (Prozac) 20 MG capsule Di scontinued 1 CAP PO O nce Per Day December 06, 2016 2: 07pm December 06, 2016 4:23pm Syringe With Needle (Instructional Technology Instructor Syringe) 1 EACH syringe Discontinued 1 EACH MC ONE TIME 2 December 06, 2016 2:16pm December 06, 2016 2:27pm Fluoxetine (Prozac) 20 MG capsule Di scontinued 1 CAP PO O nce Per Day December 06, 2016 4: 23pm May 08, 2017 8:18am Syringe With Needle (Instructional Technology Instructor Syringe) 1 EACH syringe Discontinued 1 EACH MC ONE TIME 2 December 14, 2016 1:54pm December 14, 2016 2:17pm Syringe With Needle (Instructional Technology Instructor Syringe) 1 EACH syringe Discontinued 1 EACH MC ONE TIME 2 December 19, 2016 12:14pm December 19, 2016 2:29pm Syringe With Needle (Instructional Technology Instructor Syringe) 1 EACH syringe Discontinued 1 EACH MC ONE TIME December 29, 2016 2:46pm December 29, 2016 3:19pm Syringe With Needle (Instructional Technology Instructor Syringe) 1 EACH syringe Discontinued 1 EACH MC ONE TIME 2 January 06, 2017 12:29pm January 06 7 [...] March 13 7 3:02pm Syringe With Needle (Instructional Technology Instructor Syringe) 1 EACH syringe Discontinued 1 EACH MC ONE TIME January 24, 2017 2:13pm February 01, 2017 8:43a m Syringe With Needle (Instructional Technology Instructor Syringe) 1 EACH syringe Discontinued 1 EACH MC ONE TIME 2 January 31, 2017 11:09am February 01 7 8:42am Syringe With Needle (Instructional Technology Instructor Syringe) 1 EACH syringe Discontinued 1 EACH [...] 3:02pm April 1:59am Syringe With Needle(Disp) Tray (Instructional Technology Instructor Tray) 1 EACH tray Discontinued 1 EACH MC ONE TIME March 16, 2017 2:49pm March 16 2:50pm Syringe With Needle(Disp) Tray (Instructional Technology Instructor Tray) 1 EACH tray Discontinued 1 EACH MC ONE TIME 2 March 22, 2017 3:28pm March 22 3:30pm Topiramate (Topamax) 50 MG tablet Di scontinued 50 MG PO 2 Times Per Day April 27, 2017 12:40pm May 15, 2017 1:56pm NEURO-DR GARCIA Methotrexate Sodium Discontinued 6 TABS PO 1 Time Per Week April 27, 2017 12 :46pm April 17, 2018 2:30pm Gabapentin Discontinued 300 MG PO Three times a day April 27, 2017 1:57pm May 08, 2017 7:37am Start wi th 300mg qhs, if tolerated may increase. Syringe With Needle(Disp) Tray (Instructional Technology Instructor Tray) 1 EACH tray Discontinued 1 EACH [...] 03, 2017 9:13am Syringe With Needle(Disp) Tray (Instructional Technology Instructor Tray) 1 EACH tray Discontinued 1 EACH [...] Change from HCTZ Syringe With Needle(Disp) Tray (Instructional Technology Instructor Tray) 1 EACH tray Discontinued 1 EACH MC ONE TIME June 15, 2017 2:01pm June 152016 4:15pm Prednisone Discontinued 0 PO TAPER June 21, 2017 11:13August 01, 2017 11:45am Take 3 Tablets (60mg)x [...] 03, 2017 2:14pm Syringe With Needle(Disp) Tray (Instructional Technology Instructor Tray) 1 EACH tray Discontinued 1 EACH MC ONE TIME July 07, 2017 12:19pm July 07, 2017 12:20pm Syringe With Needle(Disp) Tray (Instructional Technology Instructor Tray) 1 EACH tray Discontinued 1 EACH MC ONE TIME July 21, 2017 10:53am July 21, 2017 10:55am Syringe With Needle(Disp) Tray (Instructional Technology Instructor Tray) 1 EACH tray Discontinued 1 EACH MC ONE TIME August 11, 2017 10:07am August 11, 2017 10:07am Syringe With Needle(Disp) Tray (Instructional Technology Instructor Tray) 1 EACH tray Discontinued 1 EACH MC ONE TIME September 15, 2017 1:09pm September 152017 1:10pm Fluoxetine (Prozac) 20 MG capsule Di scontinued 1 CAP PO O nce Per Day September 19, 2017 3:57pm April 04, 2018 11:29am Syringe With Needle(Disp) Tray (Instructional Technology Instructor Tray) 1 EACH tray Discontinued 1 EACH MC ONE TIME September 22, 2017 1:43pm September 222017 1:44pm Syringe With Needle(Disp) Tray (Instructional Technology Instructor Tray) 1 EACH tray Discontinued 1 EACH MC ONE TIME September 29, 2017 11:30am September 29, 2017 11:33am Estradiol Discontinued 1 MG PO Once Per Day October 03, 2017 9:13am November 03, 2017 2:14pm Syringe With Needle(Disp) Tray (Instructional Technology Instructor Tray) 1 EACH tray Discontinued 1 EACH MC ONE TIME October 06, 2017 12:01pm October 06, 2017 12:03pm Syringe With Needle(Disp) Tray (Instructional Technology Instructor Tray) 1 EACH tray Discontinued 1 EACH MC ONE TIME October 17, 2017 12:25pm October 17, 2017 12:26pm Doxycycline Hyclate Discontinued 100 MG PO Every 12 Hours October 24, 2017 12:49pm December 19, 2017 7:31am Prednisone Discontinued 0 PO TAPER October 24, 2017 12:49pm December 19, 2017 7:31am 60mg qd x 3d, 40mg x 3d, 20mg x 3d Syringe With Needle(Disp) Tray (Instructional Technology Instructor Tray) 1 EACH tray Discontinued 1 EACH [...] 19, 2017 11:47am Syringe With Needle(Disp) Tray (Instructional Technology Instructor Tray) 1 EACH tray Discontinued 1 EACH MC ONE TIME December 19, 2017 8:27am December 19, 2017 8:28am Estradiol Discontinued 2 MG PO Once Per Day December 19, 2017 11:47am February 26, 2018 4:21pm Syringe With Needle(Disp) Tray (Instructional Technology Instructor Tray) 1 EACH tray Discontinued 1 EACH MC ONE TIME January 26, 2018 10:03am January 26 8 10:36am Syringe With Needle(Disp) Tray (Instructional Technology Instructor Tray) 1 EACH tray Discontinued 1 EACH [...] 30, 2018 1:22pm Syringe With Needle(Disp) Tray (Instructional Technology Instructor Tray) 1 EACH tray Discontinued 1 EACH [...] Change from HCTZ Syringe With Needle(Disp) Tray (Instructional Technology Instructor Tray) 1 EACH tray Discontinued 1 EACH [...] day PRN 60 October 26, 2018 3:1 pm December 26, 2018 9:54am Tizanidine Discontinued 4 MG PO Three times a day PRN 60 October 26, 2018 3:1 8pm February 05, 2019 1:42pm Diclofenac Sodium (Voltaren) [...] Discontinued 2 MG PO Once Per Day 90 90 January 10, 2019 6:36am April 09, 2019 [...] daily 90 October 10, 2019 10:58am Fluconazole Active 150 MG PO Q3D 2 November 11, 2019 11:37am Problems Active Problems Medical Problem Onset Date Status UTI (urinary tract infection) Active Obstructive sleep apnea Active Allergic rhinitis Acti ve Vitamin D deficiency A ctive Chronic sinusitis Acti ve Inactive/Resolved Problems Medical Problem Onset Date Status Cervical disc disorder Resolved Urinary tract infectious disease UTI Resolved Pain in cervical spine Resolved Acute sinusitis Resolv ed Nephrolithiasis Resolv ed Mononeuritis Resolved Renal colic on right side Resolved Procedures Procedure Date Performed Status US Echo complete December 27, 2019 9:20am completed CT Maxillofacial area w/o cont November 21, 2019 12:05pm completed CT Abd/pel w/o contrast August 11:17am completed Xray Ribs Unilateral RT August 7:31am completed US RENAL September 09, 2019 7:45am completed Relevant Diagnostic Tests and/or Laboratory Data Laboratory Results Test Date/Time Result Interpretation Reference Range Result Comment Performing Site Urine Specific [place] August 29, 2019 9:51am 1.015 Urine pH August 29, 2019 9:51am 5 Urine Leukocyte Esterase August 9:51am NEGATIVE Urine Nitrite August 29, 2019 9:51am NEGATIVE Urine Protein August 29, 2019 9:51am NEGATIVE Urine Ketones August 29, 2019 9:51am NEG mg/dl Urine Urobilinogen August 29, 2019 9:51a m NORMAL Urine Blood August 29, 2019 9:51am NEGATIVE Urine Hemoglobin August 29, 2019 9:51am NEGATIVE Urine Glucose August 29, 2019 9:51am NORMAL Urine Bilirubin August 29, 2019 9:51am NORMAL White Blood Count September 18, 2019 12:00pm 9.3 10e3/uL 4.45-10.71 [facility], [address] [place] [address] 16727 Red Blood Count September 18, 2019 12:00pm 4.60 10e6/uL 4.20-5.40 [facility], [address] [place] [address] 90176 Hemoglobin September 18, 2019 12:00pm 12.5 g/dL 10.7-15.4 [facility], [address] [place] [address] 64489 Hematocrit September 18, 2019 12:00pm 40.0 % 37-47 [facility], [address] [place] [address] 71635 Mean Corpuscular Volume August 12:00pm 87.0 fl 80-96 [facility], [address] [place] [address] 31918 Mean Corpuscular Hemoglobin September 18, 2019 12:00pm 27.2 pg 27-31 [facility], [address] [place], [place] [id number] Mean Corpuscular Hemoglobin Concent September 18, 2019 12:00pm 31.3 g/dl 33-37 [facility], [address] [place] [address] 62076 Red Cell Distribution Width September 18, 2019 12:00pm 14 % 11-15 [facility], [address] [place] [address] 40647 Platelet Count September 18, 2019 12:00pm 275 10e3/ul 130-472 [facility], [address] [place] [address] 56733 Mean Platelet Volume September 18 020 12:00pm 10.5 fl 9.1-13.1 [facility], [address] [place] [address] 27525 Neutrophils (%) (Auto) September 18, 2019 12:00pm 69.0 % 41-77 [facility], [address] [place] [address] 97517 Absolute Neutrophil September 18 12:00pm 6.4 # 1.7-7.6 [facility], [address] [place] [address] 18510 Lymphocytes (%) (Auto) September 18, 2019 12:00pm 21.1 % 14-46 [facility], [address] [place] [address] 64749 Lymphocytes # (Auto) September 18, 020 12:00pm 2.0 # 0.6-4.6 [facility], [address] [place] [address] 38897 Monocytes (%) (Auto) September 18 12:00pm 5.5 % 4-12 [facility], [address] [place] [address] 74759 Monocytes # September 18, 2019 12:00pm 0.5 # 0.2-1.2 [facility], [address] [place] [address] 72868 Eosinophils (%) (Auto) September 18, 2019 12:00pm 3.5 % 0-7 [facility], [address] [place] [address] 02940 Absolute Eosinophils (CBC) August 292019 12:00pm 0.3 # 0.0-0.5 [facility], [address] [place] [address] 15787 Basophils (%) (Auto) September 18 12:00pm 0.5 % 0.4-1.3 [facility], [address] [place] [address] 58479 Absolute Basophils (CBC) August 12:00pm 0.1 # 0.0-0.2 [facility], [address] [place] [address] 82568 Immature Granulocyte % (Auto) Auguar y 2019 12:00pm 0.4 % 0-2 [facility], [address] [place] [address] 23331 Absolute Immature Granulocyte (auto September 18, 2019 12:00pm 0.0 # 0-0.1 [facility], [address] [place] [address] 54010 Add Manual Differential August 12:00pm No [facility], [address] [place] [address] 48846 Sedimentation Rate, Westergren Janua ry 2019 12:00pm 30 mm/hr 0-20 [facility], [address] [place] [address] 62184 Blood Urea Nitrogen September 18 12:00pm 16 mg/dL 9-23 [facility], [address] [place] [address] 16445 Sodium Level September 18, 2019 12:00pm 142 mmol/L 132-146 [facility], [address] [place] [address] 73426 Potassium Level September 18, 2019 12:00pm 4.2 mmol/L 3.5-5.5 [facility], [address] [place] [address] 98771 Chloride Level September 18, 2019 12:00pm 106 mmol/l 99-109 [facility], [address] [place] [address] 16202 Carbon Dioxide Level September 18 12:00pm 31 mmol/l 20-31 [facility], [address] [place] [address] 53965 Anion Gap September 18, 2019 12:00pm 9 mmol/l 8-16 [facility], [address] [place] [address] 51000 Glucose Level September 18, 2019 12:00pm 91 mg/dL 74-106 [facility], [address] [place] [address] 17964 Creatinine September 18, 2019 12:00pm 0.5 mg/dL 0.5-1.1 [facility], [address] [place] [address] 88728 Glomerular Filtration Rate Calc Drew jo 2019 12:00pm Greater than 60 ml/min ABOVE 60 [facility], [address] [place] [address] 05013 Alanine Aminotransferase (ALT/SGPT) September 18, 2019 12:00pm 19 U/L 10-49 [facility], [address] [place] [address] 86569 Aspartate Amino Transf (AST/SGOT) Marcel loredo 2019 12:00pm 15 U/L 0-33 [facility], [address] [place] [address] 96457 Alkaline Phosphatase September 18 12:00pm 85 U/L 45-129 [facility], [address] [place] [address] 83492 Calcium Level September 18, 2019 12:00pm 9.0 mg/dL 8.5-10.1 [facility], [address] [place] [address] 75932 Total Bilirubin September 18, 2019 12:00pm 0.3 mg/dL 0.3-1.2 [facility], [address] [place] [address] 53388 Albumin September 18, 2019 12:00pm 3.4 g/dL 3.2-4.8 [facility], [address] [place] [address] 32669 Serum Total Protein September 18 12:00pm 7.0 g/dL 5.7-8.2 [facility], [address] [place] [address] 23792 Thyroid Stimulating Hormone (TSH) Ap 2019 9:20am 1.04 uIU/mL 0.35-5.50 [facility], [address] [facility] [address] Thyroxine (T4) December 18, 2019 9:20am 8.8 ug/dL Performed at: RN - [facility] [address] [id number] Director: Priyanka Her MD, Phone: [phone] [facility] , [address] [facility] [phone] Diagnostic Imaging Reports Report Dictated Date/Time Dictated By Status Radiology Report September 09, 2019 8:23am Donnell Maldonado MD completed [facility] [address] [place] [address] [phone] NAME SEX PT STATUS ACCOUNT NUMBER ALEKSANDR BEAL REG REF [id number] ORDERING PHYSICIAN LOCATION MEDICAL RECORD NO. Juliano Aguirre M.D. [id number] ATTENDING PHYSICIAN DATE OF DATE OF EXAM/TIME Juliano Aguirre MD 1975 09/09/19730 TYPE / EXAM Xray Ribs Unilateral RT REASON FOR EXAM cva pain COMPARISON: July 22, 2013 FINDINGS: PA chest and multiple oblique images of the right ribs were acquired. Images demonstrate no displaced rib fracture. No lytic or blastic osseous lesion is seen, and there is no right-sided pleural effusion or pneumothorax. IMPRESSION: No displaced rib fracture. No right-sided pleural effusion or pneumothorax. Reported By Donnell Maldonado MD on 09/09/19822 Signed By Donnell Maldonado MD on 09/09/19830 Date Time CC: Juliano Aguirre M.D.; Donnell Maldonado MD Techn: CUMME Trans Dt/Tm: Trans by: DT Prt Dt/Tm: 9942-1034: Total DLP = 0.00 mGy-cm Fluoroscopy Time (in secs): Radiology Report September 09, 2019 10:41a m Donnell Maldonado MD completed [facility] [id number] [place] [address] [phone] NAME SEX PT STATUS ACCOUNT NUMBER ALEKSANDR BEAL REG REF [id number] ORDERING PHYSICIAN LOCATION MEDICAL RECORD NO. Juliano Aguirre M.D. [id number] ATTENDING PHYSICIAN DATE OF DATE OF EXAM/TIME Juliano Aguirre MD 1975 09/09/19 / 744 TYPE / EXAM US RENAL REASON FOR EXAM cva pain COMPARISON: None available. FINDINGS: Overall, the study is somewhat limited by patient body habitus. Bilaterally, the kidneys are normal in contour and echogenicity. There is no mass, cyst, or hydronephrosis on either side. The right kidney measures approximately 10.6 cm in long diameter, and the left kidney measures approximately 12.3 cm in long diameter. IMPRESSION: No mass, cyst, or hydronephrosis on either side. Reported By Donnell Maldonado MD on 09/09/19 1041 Signed By Donnell Maldonado MD on 09/09/19 1043 Date Time CC: Juliano Aguirre M.D.; Donnell Maldonado MD Techn: BUSMI Trans Dt/Tm: Trans by: DT Prt Dt/Tm: : Total DLP = 0.00 mGy-cm : Total Radiation Dose = 0.0000 mSv Lifetime Dose: 0 mSv Radiology Report September 18, 2019 1:23pm Donnell Maldonado MD completed [facility] [id number] [place] [address] [phone] NAME SEX PT STATUS ACCOUNT NUMBER ALEKSANDR BEAL REG REF [id number] ORDERING PHYSICIAN LOCATION MEDICAL RECORD NO. Juliano Aguirre M.D. [facility] [id number] ATTENDING PHYSICIAN DATE OF DATE OF EXAM/TIME Juliano Aguirre MD 1975 09/18/19 / 1117 TYPE / EXAM CT Abd/pel w/o contrast REASON FOR EXAM right upper quadrant and flank pain COMPARISON: May 15, 2017 TECHNIQUE: CT images through the abdomen and pelvis obtained without intravenous contrast. FINDINGS: LUNG BASES: Essentially clear. LIVER: No focal mass lesions. No intrahepatic biliary ductal dilatation. The liver is slightly enlarged, however. GALLBLADDER: Surgically absent. SPLEEN: Unremarkable. PANCREAS: Normal CT appearance. ADRENALS: No nodules. KIDNEYS: Approximately 1.2 cm calculus is seen at the left UPJ. It is associated with proximal hydronephrosis. No perinephric stranding is seen. No other renal or ureteral calculus is present. BOWEL: A large burden of stool is seen in the colon. However, there is no pathologically dilated loop of small or large bowel. The appendix is not seen. MESENTERY/PERITONEUM: Unremarkable. NODES: Nondilated. PELVIS: Unremarkable. BONE WINDOWS: No aggressive osseous abnormalities. VASCULATURE: Normal, without aneurysm or significant atherosclerotic disease. SOFT TISSUES: Unremarkable. IMPRESSION: 1. 1.2 cm calculus at the left UPJ. Proximal hydronephrosis. 2. No other renal or ureteral calculus. No right-sided hydronephrosis. 3. Surgically absent gallbladder. 4. Slightly enlarged liver. No focal liver lesion. No biliary ductal dilatation. 5. No free intraperitoneal air or fluid. 6. Large burden of colonic stool. Reported By Donnell Maldonado MD on 09/18/19 1323 Signed By Donnell Maldonado MD on 09/18/19 1331 Date Time CC: Juliano Aguirre M.D.; Donnell Maldonado MD Techn: [id number] Trans Dt/Tm: Trans by: DT Prt Dt/Tm: : Total DLP = 1187.00 mGy-cm : Total Radiation Dose = 17.8050 mSv Lifetime Dose: 17.8050 mS v Radiology Report November 21, 2019 2:13pm Donnell Maldonado MD completed [facility] [address] [place] [address] [phone] NAME SEX PT STATUS ACCOUNT NUMBER ALEKSANDR BEAL REG REF [id number] ORDERING PHYSICIAN LOCATION MEDICAL RECORD NO. Juliano Aguirre M.D. CT [id number] ATTENDING PHYSICIAN DATE OF DATE OF EXAM/TIME [...] Signed By Donnell Maldonado MD on 11/21/19 141 Date Time CC: Juliano Aguirre M.D.; Donnell Maldonado MD Techn: [email or web address] Trans Dt/Tm: Trans by: DT Prt Dt/Tm: : Total DLP = 107.00 mGy-cm : Total Radiation Dose = 0.3317 mSv Lifetime Dose: 18.1367 mSv Radiology Report December 27, 2019 10:23am Henrik Dominique completed [facility] [address] [place] [address] [phone] NAME SEX PT STATUS ACCOUNT NUMBER ALEKSANDR BEAL REG REF [id number] ORDERING PHYSICIAN LOCATION MEDICAL RECORD NO. Alexy John MD [id number] ATTENDING PHYSICIAN DATE OF DATE OF EXAM/TIME Juliano Aguirre MD 1975 12/27/19 / 0 TYPE / EXAM US Echo complete REASON [...] SHIRLEY Trans Dt/Tm: 12/27/19 1338 Trans by: MK Prt Dt/Tm: : Total DLP = 0.00 mGy-cm : Total Radiation Dose = 0.0000 mSv Lifetime Dose: 18.1367 mSv Health Concerns Health Concerns may be documented in an alternate section. Advance Directives Advance Directive Response Recorded Date/Time Advanced Directive No Marcel loredo 2019 3:04pm Does Patient have a DNR? No September 19, 2019 3:04pm Healthcare Proxy No Drew jo 2019 3:04pm Living Will No August 292019 3:04pm Chief Complaint and Reason for Visit Chief Complaint Back pain Sick visit (adolescent/adult) BACK PAIN M54.9 RIGHT FLANK PAIN,R10.9 Cold symptoms Sinus infection Abdominal pain PERSISTENT SINUS PRESSURE & FATIGUE PT HAS THE ORDER HEART MURMUR Urinary complaint Encounters Encounter Location(s) Ar rival/Admit Date Discharge/Depart Date Provider(s) Departed Physician/Provider Office Visit -[facility] August 29, 2019 8:14am August 8:42am Juliano Aguirre Departed Physician/Provider Office Visit -[facility] September 05, 2019 12:31pm September 05, 2019 1:10pm AMANDA Hand Registered Referred -Ultrasound September 09, 2019 7:22am Juliano Aguirre Registered Referred -Laboratory September 18, 2019 11:11am Juliano Aguirre Departed Physician/Provider Office Visit -[facility] September 23, 2019 11:56am September 23, 2019 12:32pm Juliano Aguirre Departed Physician/Provider Office Visit -[facility] October 08, 2019 1:57pm October 08, 2019 2:20pm Juliano Aguirre Departed Physician/Provider Office Visit -[facility] October 18, 2019 11:39am October 18, 2019 12:36pm Juliano Aguirre Registered Referred -Cat Scan November 21, 2019 12:00pm Juliano Aguirre Registered Referred -Laboratory December 18, 2019 9:00am Alexy John MD Registered Referred -Ultrasound December 27, 2019 8:26am Alexy John MD Departed Physician/Provider Office Visit -[facility] August 25, 2020 10:38am August 25, 2020 11:03am Juliano B Shambo Assessments No Assessments Information Available Family History Relationship Condition A ge at [...] Equipment Information available Insurance Providers Guarantor ALEKSANDR BEAL Address [address] [address] Contact Info. Home Phone: Payer Policy Id Coverage Id Subscriber's Name Subscriber Id Effective Date Expiration Date BC/BS [facility] [id number] ALEKSANDR BEAL [id number] BC[facility] [id number] ALEKSANDR BEAL -- [employer] (Commercial) [id number] ALEKSANDR BEAL [id number] [facility] [id number] ALEKSANDR BEAL [id number] [employer] [place] [id number] ALEKSANDR [place] BEAL [id number] 2019 Self Pay Self N/A Plan of Treatment i am not certain that she has sinusitis, but i don't know what else would respond to ceftin, so will treat her for [...] on miralax. she may need a colonoscopy. will rx with ceftin and recheck in [address] of sinuses if does not respond. relative to the results of her ct and us of the abodmen, will start miralax daily. it se ems very odd that she could have an obstructing stone on the left with no pain. may need urologic referral. the only way i can make a connection between her pain and bladder symptoms is wi th something involving the urinary tract. i think she needs imaging and possibly a referral. will start with a renal ultrasound and rib xary. if not helpful, then will go to a ct. recheck w ill be once studies are complete. Future Tests Future scheduled test information is unavailable Pending Tests Pending diagnostic test information is unavailable Future Visits Future appointment information is unavailable Referrals to Other Providers Referral information is unavailable Future Procedures Future procedure information is unavailable Future Medications Future medication information is unavailable Patient Instructions Patient instructions are unavailable Social History Smoking Status Status Date of Observation Never smoker September 05, 2019 12:48 pm Observation Status Date of Observation Not September 19, 2019 Observation Status Observation Response Slava e of Response Smoking Status Never smoker September 05, 2019 12:48pm Alcohol Use No August 292019 3:04pm Substance Use No September 19, 2019 3:04pm Assigned Sex Female Vital Signs Vital Reading Result Ref erence Range Collection Date/Time Weight 305.00 [lb_av] August 29, 2019 8:23am Body Temperature 98.2 [degF] 97.6-99.5 August 29, 2019 8:23am Heart Rate 91 /min 60-100 August 29, 2019 8:23am Respiratory rate 16 /min -August 29, 2019 8:23am Oxygen saturation by Pulse oximetry 96 % 95- 100 August 29, 2019 8:23am BP Systolic 134 mm[Hg] August 29, 2019 8:23am BP Diastolic 78 mm[Hg] August 29, 2019 8:23am Height 65 [in_i] September 05, 2019 12:43pm Weight 301.00 [lb_av] September 05, 2019 12:43pm Body Temperature 98 [degF] 97.6-99.5 September 05, 2019 12:43pm Heart Rate 76 /min 60-100 September 05, 2019 12:43pm Respiratory rate 18 /min -September 05, 2019 12:43pm Oxygen saturation by Pulse oximetry 99 % 95- 100 September 05, 2019 12:43pm BP Systolic 140 mm[Hg] September 05, 2019 12:43pm BP Diastolic 92 mm[Hg] September 05, 2019 12:43pm BMI (Body Mass Index) 50.1 kg/m2 September 05, 2019 12:43pm Weight 304.00 [lb_av] September 23, 2019 12:10pm Body Temperature 98.8 [degF] 97.6-99.5 September 23, 2019 12:10pm Heart Rate 89 /min 60-100 September 23, 2019 12:10pm Respiratory rate 18 /min 12-September 23, 2019 12:10pm Oxygen saturation by Pulse oximetry 97 % 95- 100 September 23, 2019 12:10pm BP Systolic 134 mm[Hg] September 23, 2019 12:10pm BP Diastolic 78 mm[Hg] September 23, 2019 12:10pm Weight 309.00 [lb_av] October 08, 2019 2:04pm Body Temperature 98.2 [degF] 97.6-99.5 October 08, 2019 2:04pm Heart Rate 73 /min 60-100 October 08, 2019 2:04pm Respiratory rate 16 /min -October 08, 2019 2:04pm Oxygen saturation by Pulse [...]
--- OUTSIDE RECORDS SUMMARY | 2020-10-16 08:58 | CCD ---
Author Author [facility] Organization [facility] Address Unknown Phone Unavailable Care Team Providers Care Director Employee Safety And Health Name Role Phone Recore, Maritza Desirae WHNP Unavailable Unavailable Recore, Maritza Desirae WHNP Unavailable Unavailable Recore, Maritza Desirae WHNP Unavailable Unavailable Recore, Maritza Desirae WHNP Unavailable Unavailable Recore, Maritza Desirae WHNP Unavailable Unavailable Recore, Maritza Desirae WHNP Unavailable Unavailable Recore, Maritza Desirae WHNP Unavailable Unavailable Recore, Maritza Desirae WHNP Unavailable Unavailable Recore, Maritza Desirae WHNP Unavailable Unavailable Recore, Maritza Desirae WHNP Unavailable Unavailable Recore, Maritza Desirae WHNP Unavailable Unavailable Recore, Maritza Desirae WHNP Unavailable Unavailable Recore, Maritza Desirae WHNP Unavailable Unavailable Recore, Maritza Desirae WHNP Unavailable Unavailable Recore, Maritza Desirae WHNP Unavailable Unavailable Recore, Maritza Desirae WHNP Unavailable Unavailable Recore, Maritza Desirae WHNP Unavailable Unavailable Recore, Maritza Desirae WHNP Unavailable Unavailable Recore, Maritza Desirae WHNP Unavailable Unavailable Recore, Maritza Desirae WHNP Unavailable Unavailable Recore, Maritza Desirae WHNP Unavailable Unavailable Recore, Maritza Desirae WHNP Unavailable Unavailable Recore, Maritza Desirae WHNP Unavailable Unavailable Recore, Maritza Desirae WHNP Unavailable Unavailable Recore, Maritza Desirae WHNP Unavailable Unavailable Recore, Maritza Desirae WHNP Unavailable Unavailable Recore, Maritza Desirae WHNP Unavailable Unavailable Recore, Maritza Desirae WHNP Unavailable Unavailable Recore, Maritza Desirae WHNP Unavailable Unavailable Recore, Maritza Desirae WHNP Unavailable Unavailable Recore, Maritza Desirae WHNP Unavailable Unavailable Recore, Maritza Desirae WHNP Unavailable Unavailable Recore, Maritza Desirae WHNP Unavailable Unavailable Shambo, Victor Manuel Henao MD Unavailable Unavailable Shambo, Victor Manuel Henao MD Unavailable Unavailable Shambo, Victor Manuel Henao MD Unavailable Unavailable Shambo, Victor Manuel Henao MD Unavailable Unavailable Shambo, Victor Manuel Henao MD Unavailable Unavailable Shambo, Victor Manuel Henao MD Unavailable Unavailable Shambo, Victor Manuel Henao MD Unavailable Unavailable Shambo, Victor Manuel Henao MD Unavailable Unavailable Shambo, Victor Manuel Henao MD Unavailable Unavailable Shambo, Victor Manuel Henao MD Unavailable Unavailable Shambo, Victor Manuel Henao MD Unavailable Unavailable Shambo, Victor Manuel Henao MD Unavailable Unavailable Shambo, Victor Manuel Henao MD Unavailable Unavailable Shambo, Victor Manuel Henao MD Unavailable Unavailable Shambo, Victor Manuel Henao MD Unavailable Unavailable Shambo, Victor Manuel Henao MD Unavailable Unavailable Shambo, Victor Manuel Henao MD Unavailable Unavailable Shambo, Victor Manuel Henao MD Unavailable Unavailable Shambo, Victor Manuel Henao MD Unavailable Unavailable Shambo, Victor Manuel Henao MD Unavailable Unavailable Shambo, Victor Manuel Henao MD Unavailable Unavailable Shambo, Victor Manuel Henao MD Unavailable Unavailable Shambo, Victor Manuel Henao MD Unavailable Unavailable Shambo, Victor Manuel Henao MD Unavailable Unavailable Shambo, Victor Manuel Henao MD Unavailable Unavailable Shambo, Victor Manuel Henao MD Unavailable Unavailable Shambo, Victor Manuel Henao MD Unavailable Unavailable Shambo, Victor Manuel Henao MD Unavailable Unavailable Shambo, Victor Manuel Henao MD Unavailable Unavailable Shambo, Victor Manuel Henao MD Unavailable Unavailable Shambo, Victor Manuel Henao MD Unavailable Unavailable Shambo, Victor Manuel Henao MD Unavailable Unavailable Shambo, Victor Manuel Henao MD Unavailable Unavailable Shambo, Victor Manuel Henao MD Unavailable Unavailable Shambo, Victor Manuel Henao MD Unavailable Unavailable Shambo, Victor Manuel Henao MD Unavailable Unavailable Shambo, Victor Manuel Henao MD Unavailable Unavailable Shambo, Victor Manuel Henao MD Unavailable Unavailable Shambo, Victor Manuel eHnao MD Unavailable Unavailable Shambo, Victor Manuel Henao MD Unavailable Unavailable Shambo, Victor Manuel Henao MD Unavailable Unavailable Shambo, Victor Manuel Henao MD Unavailable Unavailable Shambo, Victor Manuel Henao MD Unavailable Unavailable Shambo, Victor Manuel Henao MD Unavailable Unavailable Shambo, Victor Manuel Henao MD Unavailable Unavailable Shambo, Victor Manuel Henao MD Unavailable Unavailable Shambo, Victor Manuel Henao MD Unavailable Unavailable Shambo, Victor Manuel Henao MD Unavailable Unavailable Shambo, Victor Manuel Henao MD Unavailable Unavailable Shambo, Victor Manuel Henao MD Unavailable Unavailable Shambo, Victor Manuel Henao MD Unavailable Unavailable Shambo, Victor Manuel Henao MD Unavailable Unavailable Shambo, Victor Manuel Henao MD Unavailable Unavailable Shambo, Victor Manuel Henao MD Unavailable Unavailable Shambo, Victor Manuel Henao MD Unavailable Unavailable Shambo, Victor Manuel Henao MD Unavailable Unavailable Shambo, Victor Manuel Henao MD Unavailable Unavailable Shambo, Victor Manuel Henao MD Unavailable Unavailable Shambo, Victor Manuel Henao MD Unavailable Unavailable Shambo, Victor Manuel Henao MD Unavailable Unavailable Shambo, Victor Manuel Henao MD Unavailable Unavailable Shambo, Victor Manuel Henao MD Unavailable Unavailable Shambo, Victor Manuel Henao MD Unavailable Unavailable Shambo, Victor Manuel Henao MD Unavailable Unavailable VanArnam, W Celestino PA Unavailable Unavailable VanArnam, W Celestino PA Unavailable Unavailable VanArnam, W Celestino PA Unavailable Unavailable VanArnam, W Celestino PA Unavailable Unavailable VanArnam, W Celestino PA Unavailable Unavailable VanArnam, W Celestino PA Unavailable Unavailable VanArnam, W Celestino PA Unavailable Unavailable VanArnam, W Celestino PA Unavailable Unavailable VanArnam, W Celestino PA Unavailable Unavailable VanArnam, W Celestino PA Unavailable Unavailable VanArnam, W Celestino PA Unavailable Unavailable VanArnam, W Celestino PA Unavailable Unavailable VanArnam, W Celestino PA Unavailable Unavailable VanArnam, W Celestino PA Unavailable Unavailable VanArnam, W Celestino PA Unavailable Unavailable VanArnam, W Celestino PA Unavailable Unavailable VanArnam, W Celestino PA Unavailable Unavailable VanArnam, W Celestino PA Unavailable Unavailable VanArnam, W Celestino PA Unavailable Unavailable VanArnam, W Celestino PA Unavailable Unavailable VanArnam, W Celestino PA Unavailable Unavailable VanArnam, W Celestino PA Unavailable Unavailable VanArnam, W Celestino PA Unavailable Unavailable VanArnam, W Celestino PA Unavailable Unavailable VanArnam, W Celestino PA Unavailable Unavailable VanArnam, W Celestino PA Unavailable Unavailable VanArnam, W Celestino PA Unavailable Unavailable VanArnam, W Celestino PA Unavailable Unavailable VanArnam, W Celestino PA Unavailable Unavailable VanArnam, W Celestino PA Unavailable Unavailable VanArnam, W Celestino PA Unavailable Unavailable VanArnam, W Celestino PA Unavailable Unavailable VanArnam, W Celestino PA Unavailable Unavailable VanArnam, W Celestino PA Unavailable Unavailable VanArnam, W Celestino PA Unavailable Unavailable VanArnam, W Celestino PA Unavailable Unavailable VanArnam, W Celestino PA Unavailable Unavailable VanArnam, W Celestino PA Unavailable Unavailable VanArnam, W Celestino PA Unavailable Unavailable VanArnam, W Celestino PA Unavailable Unavailable VanArnam, W Celestino PA Unavailable Unavailable VanArnam, W Celestino PA Unavailable Unavailable Shambo, Victor Manuel Henao MD Unavailable Unavailable Shambo, Victor Maneul Henao MD Unavailable Unavailable Shambo, Victor Manuel Henao MD Unavailable Unavailable Shambo, Victor Manuel Henao MD Unavailable Unavailable Shambo, Victor Manuel Henao MD Unavailable Unavailable Shambo, Victor Manuel Henao MD Unavailable Unavailable Shambo, Victor Manuel Henao MD Unavailable Unavailable Shambo, Victor Manuel Henao MD Unavailable Unavailable Shambo, Victor Manuel Henao MD Unavailable Unavailable Shambo, Victor Manuel Henao MD Unavailable Unavailable Shambo, Victor Manuel Henao MD Unavailable Unavailable Shambo, Victor Manuel Henao MD Unavailable Unavailable Shambo, Victor Manuel Henao MD Unavailable Unavailable Shambo, Victor Manuel Henao MD Unavailable Unavailable Shambo, Victor Manuel Henao MD Unavailable Unavailable Shambo, Victor Manuel Henao MD Unavailable Unavailable Shambo, Victor Manuel Henao MD Unavailable Unavailable Shambo, Victor Manuel Henao MD Unavailable Unavailable Shambo, Victor Manuel Henao MD Unavailable Unavailable Shambo, Victor Manuel Henao MD Unavailable Unavailable Shambo, Victor Manuel Henao MD Unavailable Unavailable Shambo, Victor Manuel Henao MD Unavailable Unavailable Shambo, Victor Manuel Henao MD Unavailable Unavailable Shambo, Victor Manuel Henao MD Unavailable Unavailable Shambo, Victor Manuel Henao MD Unavailable Unavailable Shambo, Victor Manuel Henao MD Unavailable Unavailable Shambo, Victor Manuel Henao MD Unavailable Unavailable Shambo, Victor Manuel Henao MD Unavailable Unavailable Shambo, Victor Manuel Henao MD Unavailable Unavailable Shambo, Victor Manuel Henao MD Unavailable Unavailable Shambo, Victor Manuel Henao MD Unavailable Unavailable Shambo, Victor Manuel Henao MD Unavailable Unavailable Shambo, Victor Manuel Henao MD Unavailable Unavailable Shambo, Victor Manuel Henao MD Unavailable Unavailable Shambo, Victor Manuel Henao MD Unavailable Unavailable Shambo, Victor Manuel Henao MD Unavailable Unavailable Shambo, iVctor Manuel Henao MD Unavailable Unavailable Shambo, Victor Manuel Henao MD Unavailable Unavailable Shambo, Victor Manuel Henao MD Unavailable Unavailable Shambo, Victor Manuel Henao MD Unavailable Unavailable Shambo, Victor Manuel Henao MD Unavailable Unavailable Shambo, Victor Manuel Henao MD Unavailable Unavailable Shambo, Victor Manuel Henao MD Unavailable Unavailable Shambo, Victor Manuel Henao MD Unavailable Unavailable Shambo, Victor Manuel Henao MD Unavailable Unavailable Shambo, Victor Manuel Henao MD Unavailable Unavailable Shambo, Victor Manuel Henao MD Unavailable Unavailable Shambo, Victor Manuel Henao MD Unavailable Unavailable Shambo, Victor Manuel Henao MD Unavailable Unavailable Shambo, Victor Manuel Henao MD Unavailable Unavailable Shambo, Victor Manuel Henao MD Unavailable Unavailable Shambo, Victor Manuel Henao MD Unavailable Unavailable Shambo, Victor Manuel Henao MD Unavailable Unavailable Shambo, Victor Manuel Henao MD Unavailable Unavailable Shambo, Victor Manuel Henao MD Unavailable Unavailable Shambo, Victor Manuel Henao MD Unavailable Unavailable Shambo, Victor Manuel Henao MD Unavailable Unavailable Shambo, Victor Manuel Henao MD Unavailable Unavailable Shambo, Victor Manuel Henao MD Unavailable Unavailable Shambo, Victor Manuel Henao MD Unavailable Unavailable Shambo, Victor Manuel Henao MD Unavailable Unavailable Shambo, Victor Manuel Henao MD Unavailable Unavailable Shambo, Victor Manuel Henao MD Unavailable Unavailable Shambo, Victor Manuel Henao MD Unavailable Unavailable Hannon, Hazel Tavia PA Unavailable Unavailable Hannon, Hazel Tavia PA Unavailable Unavailable Hannon, Hazel Tavia PA Unavailable Unavailable Hannon, Hazel Tavia PA Unavailable Unavailable Hannon, Hazel Tavia PA Unavailable Unavailable Hannon, Hazel Tavia PA Unavailable Unavailable Hannon, Hazel Tavia PA Unavailable Unavailable Hannon, Hazel Tavia PA Unavailable Unavailable Hannon, Hazel Tavia PA Unavailable Unavailable Hannon, Hazel Tavia PA Unavailable Unavailable Shambo, Victor Manuel Henao MD Unavailable Unavailable Shambo, Victor Manuel Henao MD Unavailable Unavailable Shambo, Victor Manuel Henao MD Unavailable Unavailable Shambo, Victor Manuel Henao MD Unavailable Unavailable Shambo, Victor Manuel Henao MD Unavailable Unavailable Shambo, Victor Manuel Henao MD Unavailable Unavailable Shambo, Victor Manuel Henao MD Unavailable Unavailable Shambo, Victor Manuel Henao MD Unavailable Unavailable Shambo, Victor Manuel Henao MD Unavailable Unavailable Shambo, Victor Manuel Henao MD Unavailable Unavailable Shambo, Victor Manuel Henao MD Unavailable Unavailable Shambo, Victor Manuel Henao MD Unavailable Unavailable Shambo, Victor Manuel Henao MD Unavailable Unavailable Shambo, Victor Manuel Henao MD Unavailable Unavailable Shambo, Victor Manuel Henao MD Unavailable Unavailable Shambo, Victor Manuel Henao MD Unavailable Unavailable Shambo, Victor Manuel Henao MD Unavailable Unavailable Shambo, Victor Manuel Henao MD Unavailable Unavailable Shambo, Victor Manuel Henao MD Unavailable Unavailable Shambo, Victor Manuel Henao MD Unavailable Unavailable Shambo, Victor Manuel Henao MD Unavailable Unavailable Shambo, Victor Manuel Henao MD Unavailable Unavailable Shambo, Victor Manuel Henao MD Unavailable Unavailable Shambo, Victor Manuel Henao MD Unavailable Unavailable Shambo, Victor Manuel Henao MD Unavailable Unavailable Shambo, Victor Manuel Henao MD Unavailable Unavailable Shambo, Victor Manuel Henao MD Unavailable Unavailable Shambo, Victor Manuel Henao MD Unavailable Unavailable Shambo, Victor Manuel Henao MD Unavailable Unavailable Shambo, Victor Manuel Henao MD Unavailable Unavailable Shambo, Victor Manuel Henao MD Unavailable Unavailable Shambo, Victor Manuel Henao MD Unavailable Unavailable Shambo, Victor Manuel Henao MD Unavailable Unavailable Shambo, Victor Manuel Henao MD Unavailable Unavailable Shambo, Victor Manuel Henao MD Unavailable Unavailable Shambo, Victor Manuel Henao MD Unavailable Unavailable Shambo, Victor Manuel Henao MD Unavailable Unavailable Shambo, Victor Manuel Henao MD Unavailable Unavailable Shambo, Victor Manuel Henao MD Unavailable Unavailable Shambo, Victor Manuel Henao MD Unavailable Unavailable Shambo, Victor Manuel Henao MD Unavailable Unavailable Shambo, Victor Manuel Henao MD Unavailable Unavailable Shambo, Victor Manuel Henao MD Unavailable Unavailable Shambo, Victor Manuel Henao MD Unavailable Unavailable Shambo, Victor Manuel Henao MD Unavailable Unavailable Shambo, Victor Manuel Henao MD Unavailable Unavailable Shambo, Victor Manuel Henao MD Unavailable Unavailable Shambo, Victor Manuel Henao MD Unavailable Unavailable Shambo, Victor Manuel Henao MD Unavailable Unavailable Shambo, Victor Manuel Henao MD Unavailable Unavailable Shambo, Victor Manuel Henao MD Unavailable Unavailable Shambo, Victor Manuel Henao MD Unavailable Unavailable Shambo, Victor Manuel Henao MD Unavailable Unavailable Shambo, Victor Manuel Henao MD Unavailable Unavailable Shambo, Victor Manuel Henao MD Unavailable Unavailable Shambo, Victor Manuel Henao MD Unavailable Unavailable Shambo, Victor Manuel Henao MD Unavailable Unavailable Shambo, Victor Manuel Henao MD Unavailable Unavailable Shambo, Victor Manuel Henao MD Unavailable Unavailable Shambo, Victor Manuel Henao MD Unavailable Unavailable Shambo, Victor Manuel Henao MD Unavailable Unavailable Shambo, Victor Manuel Henao MD Unavailable Unavailable Shambo, Victor Manuel Henao MD Unavailable Unavailable Shambo, Victor Manuel Henao MD Unavailable Unavailable Recore, Maritza Desirae WHNP Unavailable Unavailable Recore, Maritza Desirae WHNP Unavailable Unavailable Recore, Maritza Desirae WHNP Unavailable Unavailable Recore, Maritza Desirae WHNP Unavailable Unavailable Recore, Maritza Desirae WHNP Unavailable Unavailable Recore, Maritza Desirae WHNP Unavailable Unavailable Recore, Maritza Desirae WHNP Unavailable Unavailable Recore, Maritza Desirae WHNP Unavailable Unavailable Recore, Maritza Desirae WHNP Unavailable Unavailable Recore, Maritza Desirae WHNP Unavailable Unavailable Recore, Maritza Desirae WHNP Unavailable Unavailable Recore, Maritza Desirae WHNP Unavailable Unavailable Recore, Maritza Desirae WHNP Unavailable Unavailable Recore, Maritza Desirae WHNP Unavailable Unavailable Recore, Maritza Desirae WHNP Unavailable Unavailable Recore, Maritza Desirae WHNP Unavailable Unavailable Recore, Maritza Desirae WHNP Unavailable Unavailable Recore, Maritza Desirae WHNP Unavailable Unavailable Recore, Maritza Desirae WHNP Unavailable Unavailable Recore, Maritza Desirae WHNP Unavailable Unavailable Recore, Maritza Desirae WHNP Unavailable Unavailable Recore, Maritza Desirae WHNP Unavailable Unavailable Recore, Maritza Desirae WHNP Unavailable Unavailable Recore, Maritza Desirae WHNP Unavailable Unavailable Recore, Maritza Desirae WHNP Unavailable Unavailable Recore, Maritza Desirae WHNP Unavailable Unavailable Recore, Maritza Desirae WHNP Unavailable Unavailable Recore, Maritza Desirae WHNP Unavailable Unavailable Recore, Maritza Desirae WHNP Unavailable Unavailable Recore, Maritza Desirae WHNP Unavailable Unavailable Recore, Maritza Desirae WHNP Unavailable Unavailable Recore, Maritza Desirae WHNP Unavailable Unavailable Recore, Maritza Desirae WHNP Unavailable Unavailable SAW MARX MD Unavailable Unavailable SAW MARX MD Unavailable Unavailable SAW MARX MD Unavailable Unavailable SAW MARX MD Unavailable Unavailable MARXSAW JAY MD Unavailable Unavailable MARXSAW JAY MD Unavailable Unavailable SAW MARX MD Unavailable Unavailable SAW MARX MD Unavailable Unavailable SAW MARX MD Unavailable Unavailable SAW MARX MD Unavailable Unavailable SAW MARX MD Unavailable Unavailable SAW MARX MD Unavailable Unavailable SAW MARX MD Unavailable Unavailable SAW MARX MD Unavailable Unavailable SAW MARX MD Unavailable Unavailable SAW MARX MD Unavailable Unavailable SAW MARX MD Unavailable Unavailable SAW MARX MD Unavailable Unavailable SAW MARX MD Unavailable Unavailable SAW MARX MD Unavailable Unavailable SAW MARX MD Unavailable Unavailable SAW MARX MD Unavailable Unavailable SAW MARX MD Unavailable Unavailable SAW MARX MD Unavailable Unavailable SAW MARX MD Unavailable Unavailable SAW MARX MD Unavailable Unavailable SAW MARX MD Unavailable Unavailable SAW MARX MD Unavailable Unavailable SAW MARX MD Unavailable Unavailable SAW MARX MD Unavailable Unavailable SAW MARX MD Unavailable Unavailable Doctor Provided, Family PHYS No Family Unavailable U navailable Naveen FAROOQ MD Unavailable Unavailable Naveen FAROOQ MD Unavailable Unavailable Naveen FAROOQ MD Unavailable Unavailable Naveen FAROOQ MD Unavailable Unavailable Naveen FAROOQ MD Unavailable Unavailable Naveen FAROOQ MD Unavailable Unavailable Naveen FAROOQ MD Unavailable Unavailable Naveen FAROOQ MD Unavailable Unavailable Naveen FAROOQ MD Unavailable Unavailable Naveen FAROOQ MD Unavailable Unavailable Naveen FAROOQ MD Unavailable Unavailable Naveen FAROOQ MD Unavailable Unavailable Naveen FAROOQ MD Unavailable Unavailable Naveen FAROOQ MD Unavailable Unavailable Naveen FAROOQ MD Unavailable Unavailable Naveen FAROOQ MD Unavailable Unavailable Naveen FAROOQ MD Unavailable Unavailable Naveen FAROOQ MD Unavailable Unavailable Naveen FAROOQ MD Unavailable Unavailable Naveen FAROOQ MD Unavailable Unavailable Naveen FAROOQ MD Unavailable Unavailable Naveen FAROOQ MD Unavailable Unavailable Naveen FAROOQ MD Unavailable Unavailable Naveen FAROOQ MD Unavailable Unavailable Naveen FAROOQ MD Unavailable Unavailable Naveen FAROOQ MD Unavailable Unavailable Naveen FAROOQ MD Unavailable Unavailable Naveen FAROOQ MD Unavailable Unavailable Naveen FAROOQ MD Unavailable Unavailable Naveen FAROOQ MD Unavailable Unavailable Naveen FAROOQ MD Unavailable Unavailable Naveen FAROOQ MD Unavailable Unavailable Naveen FAROOQ MD Unavailable Unavailable Naveen FAROOQ MD Unavailable Unavailable Naveen FAROOQ MD Unavailable Unavailable Naveen FAROOQ MD Unavailable Unavailable Naveen FAROOQ MD Unavailable Unavailable Naveen FAROOQ MD Unavailable Unavailable Naveen FAROOQ MD Unavailable Unavailable Naveen FAROOQ MD Unavailable Unavailable Naveen FAROOQ MD Unavailable Unavailable Naveen FAROOQ MD Unavailable Unavailable Naveen FAROOQ MD Unavailable Unavailable Naveen FAROOQ MD Unavailable Unavailable Naveen FAROOQ MD Unavailable Unavailable Naveen FAROOQ MD Unavailable Unavailable Naveen FAROOQ MD Unavailable Unavailable Naveen FAROOQ MD Unavailable Unavailable Naveen FAROOQ MD Unavailable Unavailable Naveen FAROOQ MD Unavailable Unavailable Naveen FAROOQ MD Unavailable Unavailable Naveen FAROOQ MD Unavailable Unavailable Naveen FAROOQ MD Unavailable Unavailable Naveen FAROOQ MD Unavailable Unavailable Naveen FAROOQ MD Unavailable Unavailable Naveen FAROOQ MD Unavailable Unavailable Naveen FAROOQ MD Unavailable Unavailable Naveen FAROOQ MD Unavailable Unavailable Naveen FAROOQ MD Unavailable Unavailable Naveen FAROOQ MD Unavailable Unavailable Naveen FAROOQ MD Unavailable Unavailable Naveen FAROOQ MD Unavailable Unavailable Naveen FAROOQ MD Unavailable Unavailable Naveen FAROOQ MD Unavailable Unavailable Naveen FAROOQ MD Unavailable Unavailable Naveen FAROOQ MD Unavailable Unavailable Naveen FAROOQ MD Unavailable Unavailable Naveen FAROOQ MD Unavailable Unavailable Naveen FAROOQ MD Unavailable Unavailable Naveen FAROOQ MD Unavailable Unavailable Naveen FAROOQ MD Unavailable Unavailable Naveen FAROOQ MD Unavailable Unavailable Naveen FAROOQ MD Unavailable Unavailable Naveen FAROOQ MD Unavailable Unavailable Naveen FAROOQ MD Unavailable Unavailable Naveen FAROOQ MD Unavailable Unavailable Naveen FAROOQ MD Unavailable Unavailable Naveen FAROOQ MD Unavailable Unavailable Naveen FAROOQ MD Unavailable Unavailable Naveen FAROOQ MD Unavailable Unavailable Naveen FAROOQ MD Unavailable Unavailable Naveen FAROOQ MD Unavailable Unavailable Naveen FAROOQ MD Unavailable Unavailable Naveen FAROOQ MD Unavailable Unavailable Naveen FAROOQ MD Unavailable Unavailable OSEASNaveen TONY HENAO Unavailable Unavailable OSEASNaveen TONY HENAO Unavailable Unavailable OSEAS, Naveen TONY HENAO Unavailable Unavailable OSEAS, Naveen TONY HENAO Unavailable Unavailable OSEASNaveen BOURGEOIS MD Unavailable Unavailable OSEASNaveen TONY HENAO Unavailable Unavailable OSEAS, Naveen TONY HENAO Unavailable Unavailable OSEASNaveen TONY HENAO Unavailable Unavailable Naveen FAROOQ TONY HENAO Unavailable Unavailable Naveen FAROOQ TONY HENAO Unavailable Unavailable Naveen FAROOQ TONY HENAO Unavailable Unavailable Re-disclosure Warning The records that you are about to access may contain information from federally-assisted alcohol or drug abuse programs. If such information is present, then the following federally mandated warning applies: This information has been disclosed to you from records protected by federal confidentiality rules (42 CFR part 2). The federal rules prohibit you from making any further disclosure of this information unless further disclosure is expressly permitted by the written consent of the person to whom it pertains or as otherwise permitted by 42 CFR part 2. A general authorization for the release of medical or other information is NOT sufficient for this purpose. The Federal rules restrict any use of the information to criminally investigate or prosecute any alcohol or drug abuse patient.The records that you are about to access may contain highly sensitive health information, the redisclosure of which is protected by Article 27-F of the [facility] Public Health law. If you continue you may have access to information: Regarding HIV / AIDS; Provided by facilities licensed or operated by the [facility] Office of Mental Health; or Provided by the [facility] Office for People With Developmental Disabilities. If such information is present, then the following [facility] mandated warning applies: This information has been disclosed to you from confidential records which are protected by state law. State law prohibits you from making any further disclosure of this information without the specific written consent of the person to whom it pertains, or as otherwise permitted by law. Any unauthorized further disclosure in violation of state law may result in a fine or penitentiary sentence or both. A general authorization for the release of medical or other information is NOT sufficient authorization for further disc losure. Allergies and Adverse Reactions Type Description Substance Reaction Status Data Source(s ) BRANDNAME ZITHROMAX ZITHROMAX palpitations [facility] Drug allergy topiramate topiramate KIDNEY STONES [facility] Drug allergy fluticasone fluticasone headache [place] [facility] Drug allergy gabapentin gabapentin Mouth PAIN [place] [facility] Drug allergy azithromycin Azithromycin HEARTBURN, HEART PALPITATIONS, SHORTNESS OF BREATH [facility] Food allergy lactose lactose [facility] Environmental Allergy SEASONAL ALLERGIES SEASONAL ALLERGIES [facility] Family History Family Member Name Family Member Gender Family Member Status Date o f Status Description Data Source(s) Unknown Condition [facility] Unknown Condition [facility] Unknown Condition [facility] Unknown Condition [facility] Unknown Condition [facility] Unknown Condition [facility] Unknown Condition [facility] Unknown Condition [facility] Unknown Condition [facility] Unknown Condition [facility] Unknown Condition [facility] Unknown Condition [facility] Unknown Condition [facility] Unknown Condition [facility] Unknown Condition [facility] Unknown Condition [facility] Unknown Condition [facility] Unknown Condition [facility] Unknown Condition [facility] Unknown Condition [facility] Unknown Condition [facility] Unknown Condition [facility] Unknown Condition [facility] Unknown Condition [facility] Unknown Condition [facility] Unknown Condition [facility] Unknown Condition [facility] Unknown Condition [facility] Unknown Condition [facility] Unknown Condition [facility] Unknown Condition [facility] Unknown Condition [facility] Unknown Condition [facility] Unknown Condition [facility] Unknown Condition [facility] Unknown Condition [facility] Unknown Condition [facility] Unknown Condition [facility] Unknown Condition [facility] Unknown Condition [facility] Unknown Condition [facility] Unknown Condition [facility] Unknown Condition [facility] Unknown Condition [facility] Unknown Condition [facility] Unknown Condition [facility] Unknown Condition [facility] Unknown Condition [facility] Unknown Condition [facility] Unknown Condition [facility] Encounters Encounter Providers Location Date Indications Data Source(s ) Unknown [address] [facility] [address] 10/13/2020 12:00:00 AM EST eCW1 ([facility] Unknown [address] [facility] [address] 10/09/2020 12:00:00 AM EST eCW1 [facility] Outpatient Attender: Maritza WOOTEN 021 10:39:00 AM EST PT HAS THE ORDER [facility] PT HAS THE ORDER Unknown [address] [facility] [address] 09/14/2020 12:00:00 AM EST eCW1 ([facility]) Unknown [address] [facility] [address] 09/03/2020 12:00:00 AM EST eCW1 ([facility] Unknown [address] [facility] [address] 09/02/2020 12:00:00 AM EST eCW1 [facility]) Outpatient Attender: Maritza Noel WHNPConsultant: Matthew Aguirre MD 09/01/2020 12:01:00 PM EST - 09/01/2020 01:01:00 PM EST [facility] [address] [facility] [address] 09/01/2020 12:00:00 AM EST eCW1 ([facility]) Outpatient Attender: Juliano Aguirre MD 08/25/2020 12:42:00 P M EST [facility] Outpatient Attender: Juliano Aguirre MDReferrer: Juliano Aguirre MD 08/25/2020 10:38:00 AM EST - 08/25/2020 11:03:00 AM EST [facility] Outpatient Attender: MADDISON MARX MD 12/27/2019 09:26:00 AM EDT HEART MURMUR [facility] HEART MURMUR [facility] [address] [place] [address] 12/19/2019 12:00:00 AM EDT eCW1 ([facility]) Outpatient Attender: MADDISON MARX MD 12/18/2019 10: 00:00 AM EDT PT HAS THE ORDER [facility] PT HAS THE ORDER [facility] [address] [place] [address] 12/17/2019 12:00:00 AM EDT eCW1 ([facility]) [facility] [address] [place] [address] 12/03/2019 12:00:00 AM EDT eCW1 ([facility]) Outpatient Attender: Juliano Aguirre MD 11/19/2019 02:5 7:00 PM EDT PERSISTENT SINUS PRESSURE FATIGUE [facility] PERSISTENT SINUS PRESSURE FATIGUE Outpatient Attender: Juliano Galranderrer: Juliano Aguirre MD 10/18/2019 11:39:00 AM EST - 10/18/2019 12:36:00 PM EST [facility] Outpatient Attender: Juliano Aguirre MDReferrer: Juliano Aguirre MD 10/08/2019 01:57:00 PM EST - 10/08/2019 02:20:00 PM EST [facility] Outpatient Attender: Celestino Hayeserrer: Juliano jessica MD 09/30/2019 09:54:52 AM EST [facility] Recurring Patient Attender: TONY FAROOQ MDReferrer: TONY FAROOQ MD 09/27/2019 10:25:21 AM EST [facility] Outpatient Attender: Juliano Aguirre MDReferrer: Juliano Aguirre MD 09/23/2019 11:56:00 AM EST - 09/23/2019 12:32:00 PM EST [facility] Outpatient Attender: Juliano Aguirre MD 09/18/2019 11:1 1:00 AM EST RIGHT FLANK PAIN,R10.9 [facility] RIGHT FLANK PAIN,R10.9 Outpatient Attender: Juliano Aguirre MD 09/09/2019 07:2 2:00 AM EST BACK PAIN M54.9 [facility] BACK PAIN M54.9 Outpatient Attender: Tavia Brar: Juliano tanner MD 09/05/2019 12:31:00 PM EST - 09/05/2019 01:10:00 PM EST [facility] Outpatient Attender: Juliano Aguirre MDReferrer: [facility] Provided 08/29/2019 08:14:00 AM EST - 08/29/2019 08:42:00 AM EST [facility] Outpatient Attender: Juliano Aguirre MD 08/02/2019 11:30:00 A M EST N39.0 [facility] N39.0 Medications Medication Brand Name Start Date Product Form Dose Route Admi nistrative Instructions Pharmacy Instructions Status Indications Reaction Description Data Source(s) Sulfamethoxazole 800 MG / Trimethoprim 1 60 MG Oral Tablet [Bactrim] Bactrim DS 800-160 MG Bactrim DS 800-160 MG 10/13/2020 12:00:00 AM EST 1.0 {table t} active Bactrim DS 800-160 MG eCW1 ( [facility]) Acetaminophen 325 MG / Oxycodone Hydroch loride 5 MG Oral Tablet [Percocet] Percocet 5-325 MG Percocet 5-325 MG 09/03/2020 12:00:00 AM EST 1.0 {t ablet} active Percocet 5-325 MG eCW1 ([facility]) Acetaminophen 325 MG / Oxycodone Hydroch loride 5 MG Oral Tablet [Percocet] Percocet 5-325 MG Percocet 5-325 MG 09/03/2020 12:00:00 AM EST 1.0 {t ablet} active Percocet 5-325 MG eCW1 ([facility]) Acetaminophen 325 MG / Oxycodone Hydroch loride 5 MG Oral Tablet [Percocet] Percocet 5-325 MG Percocet 5-325 MG 09/03/2020 12:00:00 AM EST 1.0 {t ablet} active Percocet 5-325 MG eCW1 ([facility]) Acetaminophen 325 MG / Oxycodone Hydroch loride 5 MG Oral Tablet [Percocet] Percocet 5-325 MG Percocet 5-325 MG 09/03/2020 12:00:00 AM EST 1.0 {t ablet} active Percocet 5-325 MG eCW1 ([facility]) Acetaminophen 325 MG / Oxycodone Hydroch loride 5 MG Oral Tablet [Percocet] Percocet 5-325 MG Percocet 5-325 MG 09/03/2020 12:00:00 AM EST 1.0 {t ablet} active Percocet 5-325 MG eCW1 ([facility]) Acetaminophen 325 MG / Oxycodone Hydroch loride 5 MG Oral Tablet [Percocet] Percocet 5-325 MG Percocet 5-325 MG 09/03/2020 12:00:00 AM EST 1.0 {t ablet} active Percocet 5-325 MG eCW1 ([facility]) Oxybutynin chloride 5 MG Oral Tablet Oxybutynin Chlori de 5 MG Oxybutynin Chloride 5 MG 09/01/2020 12:00:00 AM EST 1.0 {tablet} active Oxybutynin Chloride 5 MG eCW1 ([facility]) Oxybutynin chloride 5 MG Oral Tablet Oxybutynin Chlori de 5 MG Oxybutynin Chloride 5 MG 09/01/2020 12:00:00 AM EST 1.0 {tablet} active Oxybutynin Chloride 5 MG eCW1 ([facility]) Oxybutynin chloride 5 MG Oral Tablet Oxybutynin Chlori de 5 MG Oxybutynin Chloride 5 MG 09/01/2020 12:00:00 AM EST 1.0 {tablet} active Oxybutynin Chloride 5 MG eCW1 ([facility]) Oxybutynin chloride 5 MG Oral Tablet Oxybutynin Chlori de 5 MG Oxybutynin Chloride 5 MG 09/01/2020 12:00:00 AM EST 1.0 {tablet} active Oxybutynin Chloride 5 MG eCW1 ([facility]) Oxybutynin chloride 5 MG Oral Tablet Oxybutynin Chlori de 5 MG Oxybutynin Chloride 5 MG 09/01/2020 12:00:00 AM EST 1.0 {tablet} active Oxybutynin Chloride 5 MG eCW1 ([facility]) Oxybutynin chloride 5 MG Oral Tablet Oxybutynin Chlori de 5 MG Oxybutynin Chloride 5 MG 09/01/2020 12:00:00 AM EST 1.0 {tablet} active Oxybutynin Chloride 5 MG eCW1 ([facility]) Acetaminophen 325 MG / Oxycodone Hydroch loride 5 MG Oral Tablet [Percocet] Percocet 5-325 MG Percocet 5-325 MG 12/19/2019 12:00:00 AM EDT active 1or 2 tablets as needed eCW1 ([facility]) Fluconazole 100 MG Oral Tablet [Diflucan] Diflucan 100 MG Di flucan 100 MG 12/03/2019 12:00:00 AM EDT active 1 tablet eCW1 ([facility]) Amoxicillin 875 MG / Clavulanate 125 MG Oral Tablet Amoxicillin-Pot Clavulanate 875-125 MG Amoxicillin-Pot Clavulanate 875-125 MG 12/03/2019 12:00:00 AM ED T active 1 tablet eCW1 ([facility]) Fluconazole 150 MG Oral Tablet Fluconazole 11/11/2019 12:37:32 PM EDT 150 MG completed [facility] Fluconazole 150 MG Oral Tablet Fluconazole 11/11/2019 12:37:32 PM EDT 150 MG active [facility] Cefuroxime 500 MG Oral Tablet Cefuroxime Axetil Cefuroxime A xetil 10/18/2019 12:32:54 PM EST 500 MG active [facility] Cefuroxime 500 MG Oral Tablet Cefuroxime Axetil Cefuroxime A xetil 10/18/2019 12:32:54 PM EST 500 MG active L [facility] Cefuroxime 500 MG Oral Tablet Cefuroxime Axetil Cefuroxime A xetil 10/18/2019 12:32:54 PM EST 500 MG active L [facility] Estradiol 2 MG Oral Tablet Estradiol 10/10/2019 10:58:56 AM EST 2 MG active [facility] Estradiol 2 MG Oral Tablet Estradiol 10/10/2019 10:58:56 AM EST 2 MG active [facility] Estradiol 2 MG Oral Tablet Estradiol 10/10/2019 10:58:56 AM EST 2 MG active [facility] Cefuroxime 500 MG Oral Tablet Cefuroxime Axetil Cefuroxime A xetil 10/08/2019 02:18:18 PM EST 500 MG completed [facility] Cefuroxime 500 MG Oral Tablet Cefuroxime Axetil Cefuroxime A xetil 10/08/2019 02:18:18 PM EST 500 MG completed [facility] Cefuroxime 500 MG Oral Tablet Cefuroxime Axetil Cefuroxime A xetil 10/08/2019 02:18:18 PM EST 500 MG completed [facility] Cefuroxime 500 MG Oral Tablet Cefuroxime Axetil Cefuroxime A xetil 10/08/2019 02:18:18 PM EST 500 MG active L [facility] Cefuroxime 500 MG Oral Tablet Cefuroxime Axetil Cefuroxime A xetil 09/23/2019 12:30:36 PM EST 500 MG completed [facility] Cefuroxime 500 MG Oral Tablet Cefuroxime Axetil Cefuroxime A xetil 09/23/2019 12:30:36 PM EST 500 MG completed [facility] Cefuroxime 500 MG Oral Tablet Cefuroxime Axetil Cefuroxime A xetil 09/23/2019 12:30:36 PM EST 500 MG completed [facility] Cefuroxime 500 MG Oral Tablet Cefuroxime Axetil Cefuroxime A xetil 09/23/2019 12:30:36 PM EST 500 MG completed [facility] Cefuroxime 500 MG Oral Tablet Cefuroxime Axetil Cefuroxime A xetil 09/23/2019 12:30:36 PM EST 500 MG active L [facility] doxycycline hyclate 100 MG Oral Tablet Doxycycline Hyclate D oxycycline Hyclate 09/05/2019 01:07:22 PM EST 100 MG completed [facility] doxycycline hyclate 100 MG Oral Tablet Doxycycline Hyclate D oxycycline Hyclate 09/05/2019 01:07:22 PM EST 100 MG completed [facility] doxycycline hyclate 100 MG Oral Tablet Doxycycline Hyclate D oxycycline Hyclate 09/05/2019 01:07:22 PM EST 100 MG completed [facility] doxycycline hyclate 100 MG Oral Tablet Doxycycline Hyclate D oxycycline Hyclate 09/05/2019 01:07:22 PM EST 100 MG completed [facility] doxycycline hyclate 100 MG Oral Tablet Doxycycline Hyclate D oxycycline Hyclate 09/05/2019 01:07:22 PM EST 100 MG completed [facility] Naproxen 500 MG Oral Tablet Naproxen 08/08/2019 03:47:45 PM EST 500 MG completed [facility] Naproxen 500 MG Oral Tablet Naproxen 08/08/2019 03:47:45 PM EST 500 MG completed [facility] Naproxen 500 MG Oral Tablet Naproxen 08/08/2019 03:47:45 PM EST 500 MG completed [facility] Naproxen 500 MG Oral Tablet Naproxen 08/08/2019 03:47:45 PM EST 500 MG completed [facility] Naproxen 500 MG Oral Tablet Naproxen 08/08/2019 03:47:45 PM EST 500 MG completed [facility] 05/27/2019 08:38:42 AM EDT 1 SP RAY completed [facility] Az[facility] 05/27/2019 08:38:42 AM EDT 1 SP RAY completed [facility] Az[facility] 05/27/2019 08:38:42 AM EDT 1 SP RAY completed [facility] Azelast[facility] 05/27/2019 08:38:42 AM EDT 1 SP RAY completed [facility] Az[facility]ast[facility] 05/27/2019 08:38:42 AM EDT 1 SP RAY completed [facility] Estradiol 2 MG Oral Tablet Estradiol 04/19/2019 04:36:07 PM EDT 2 MG completed [facility] Estradiol 2 MG Oral Tablet Estradiol 04/19/2019 04:36:07 PM EDT 2 MG completed [facility] Estradiol 2 MG Oral Tablet Estradiol 04/19/2019 04:36:07 PM EDT 2 MG completed [facility] Insurance Providers Payer name Policy type / Coverage type Policy ID Covered republican ID Covered republican's relationship to gonzalez Policy Gonzalez Plan Information BCBS [facility] [id number] SP [id number] BCBS [facility] [id number] SP [id number] SHAAN [id number] SP [id number] [place]BS [place] PPO 302/[id number] SP [id number] BCBS [place] PPO 302/307 [id number] SP [id number] BLUE CROSS BLUE SHIELD-O/P [id number] 18 [id number] Blue Cross Blue Shield P [id number] SELF [id number] Eliza Purchase Plan F [id number] SELF [id number] SHAAN EXCHANGE [id number] SHAAN EXCHANGE [id number] Mavis [id number] SHAAN EXCHANGE PI PI SHAAN MEDICARE [id number] Mavis [id number] SHAAN EXCHANGE [id number] Mavis [id number] SHAAN MEDICARE [id number] Mavis [id number] Shaan Purchase Plan F [id number] SELF [id number] Shaan Essential Plan F [id number] SELF [id number] SHAAN [place] [id number] SP [id number] SHAAN CARE [place] O [id number] S [id number] SELF PAY ONLY SP ANSI-Commercial [id number] ANSI-Commercial [id number] UNHC COMMUNITY PLAN [facility] [id number] SP [id number] UNHC AMERICHOICE XIX -HMO [id number] [id number] [facility]) O [id number] S [id number] MEDICAID [id number] Mavis [id number] UNHC COMMUNITY PLAN [facility] [id number] SP [id number] [facility]) O [id number] S [id number] UHC I [id number] Self [id number] BCBS [place] PPO 302/307 [id number] SP [id number] UNHC AMERICHOICE XIX -HMO [id number] 18 [id number] BC/BS PPO/EPO (28) [id number] Problems, Conditions, and Diagnoses Code Display Name Description Problem Type Effective Dates Data Source(s) N13.2 Hydronephrosis with renal and ureteral c alculous obstruction Ureteral stone with hydronephrosis Problem 09/14/2020 12:00:00 AM [facility] eCW1 ([facility]) R310 Gross hematuria Gross hematuria Diagnosis 09/01/2020 12:0 1:00 PM [facility] Surgeries/Procedures Procedure Description Date Indications Data Source(s) Urine culture (procedure) 08/25/2020 12:00:[address] [facility] Echocardiography (procedure) 12/27/2019 10:20:00 AM ED [facility] Echocardiography (procedure) 12/27/2019 10:20:00 AM ED [facility] CT Maxillofacial area w/o cont 11/21/2019 [facility]acial [facility] w/o cont 11/21/2019 01:05:00 PM [facility] CT Abd/pel w/o contrast 09/18/2019 11:17:[address] [facility] CT Abd/pel w/o contrast 09/18/2019 11:17:[address] [facility] CT Abd/pel w/o contrast 09/18/2019 11:17:[address] [facility] CT Abd/pel w/o contrast 09/18/2019 11:17:[address] [facility] Echography of kidney (procedure) 09/09/2019 07:45:00 A [facility] Echography of kidney (procedure) 09/09/2019 07:45:00 A [facility] Echography of kidney (procedure) 09/09/2019 07:45:00 A [facility] Echography of kidney (procedure) 09/09/2019 07:45:00 A [facility] Xray Ribs Unilateral RT 09/09/2019 07:31:[address] [facility] Xray Ribs Unilateral RT 09/09/2019 07:31:[address] [facility] Xray Ribs Unilateral RT 09/09/2019 07:31:[address] [facility] Xray Ribs Unilateral RT 09/09/2019 07:31:[address] [facility] Results ID Date Data Source [id number] 10/11/2020 12:00:00 PM EST [facility] Name Value Range Interpretation Code Description Data Ria rce(s) Supporting Document(s) SARS coronavirus 2 RNA Not Detected [facility] [place] This lab was ordered by [facility] and reported by [facility]. ID Date Data Source [id number] 10/08/2020 01:07:[address] [facility] COLLECTED @ [facility] COLLECTED @ [facility] COLLECTED @ [facility] COLLECTED @ [facility]@10/08/20 1119: UA W/ DANA RO added. RFLXG = UMIC.Method of Collection:: Voided COLLECTED @ [facility]@10/10/20 0836: Urine ID Charge added. RFLXG = CHGURID. COLLECTED @ [facility]@10/08/20 1119: UA W/ DANA RO added. RFLXG = UMIC.Method of Collection:: Voided Name Value Range Interpretation Code Description Data Ria rce(s) Supporting Document(s) Urea nitrogen [Mass/volume] in Serum or Plasma 16 mg/dL 9-23 N [facility] Sodium [Moles/volume] in Serum or Plasma 142 mmol/L 132-146 [facility] Potassium [Moles/volume] in Serum or Plasma 3.8 mmol/L 3.5-5.5 [facility] Chloride [Moles/volume] in Serum or Plasma 107 mmol/L 99-109 [facility] Carbon dioxide, total [Moles/volume] in Serum or Plasma 25 mmol/L 20 -31 N [facility] Anion gap in Serum or Plasma 14 mmol/L 8-16 N [facility] Glucose [Mass/volume] in Serum or Plasma 143 mg/dL 74-106 Above high normal [facility] Creatinine 0.8 mg/dL 0.5-1.1 [facility] Glomerular filtration rate/1.73 sq M.pre dicted [Volume Rate/Area] in Serum or Plasma Greater Than 60 ABOVE 60 [facility] Calcium [Mass/volume] in Serum or Plasma 9.3 mg/dL 8.5-10.1 [facility] ID Date Data Source [id number] 10/08/2020 11:32:[address] [facility] COLLECTED @ [facility] COLLECTED @ [facility] COLLECTED @ [facility] COLLECTED @ [facility]@10/08/20 1119: UA W/ DANA RO added. RFLXG = UMIC.Method of Collection:: Voided COLLECTED @ [facility]@10/10/20 0836: Urine ID Charge added. RFLXG = CHGURID. COLLECTED @ [facility]@10/08/20 1119: UA W/ DANA RO added. RFLXG = UMIC.Method of Collection:: Voided Name Value Range Interpretation Code Description Data Ria rce(s) Supporting Document(s) Prothrombin Time (Patient) 10.1 s 9.6-12.3 N [facility] INR 0.9 0.9-1.1 [facility] THE INR IS OPERATIONALLY DEFINED FOR INES SH PLASMA FROMPATIENTS STABILIZED ON ORAL ANTICOAGULANTS.ROUTINE ANTICOAGULANT THERAPY 2.0-3.0RECURRENT SYSTEMIC EMBOLISM/HEART VALVE REPLACEMENT 2.5-3.5 aPTT.lupus sensitive ([place] screen) 26.8 s 22.7-31.6 [facility] ID Date Data Source [id number] 10/08/2020 10:59:[address] [facility] COLLECTED @ [facility] COLLECTED @ [facility] COLLECTED @ [facility] COLLECTED @ [facility]@10/08/20 1119: UA W/ DANA RO added. RFLXG = UMIC.Method of Collection:: Voided COLLECTED @ [facility]@10/10/20 0836: Urine ID Charge added. RFLXG = CHGURID. COLLECTED @ [facility]@10/08/20 1119: UA W/ DANA RO added. RFLXG = UMIC.Method of Collection:: Voided Name Value Range Interpretation Code Description Data Ria rce(s) Supporting Document(s) Leukocytes [#/volume] in Blood by Automated count 8.4 10*3/uL 4.45-10 .71 [facility] Erythrocytes [#/volume] in Blood by Automated count 4.85 10*6/uL 4.20 -5.40 [facility] Hemoglobin [Moles/volume] in Blood 13.3 g/dL 10.7-15.4 [facility] Hematocrit [Volume Fraction] of Blood by Automated count 41.9 % 3 7-47 N [facility] Erythrocyte mean corpuscular volume [Ent itic volume] in Cord blood by Automated count 86.4 fL 80-96 N [facility] Erythrocyte mean corpuscular hemoglobin [Entitic mass] by Automated count 27.4 pg 27-[address] [facility] Erythrocyte mean corpuscular hemoglobin concentration [Mass/volume] in Cord blood 31.7 g/dL 33-37 Below low normal [facility] Erythrocyte distribution width [Entitic volume] by Automated count 14 % 11-15 N [facility] Platelets [#/volume] in Blood by Automated count 279 10*3/uL 130-472 N [facility] Platelet mean volume [Entitic volume] in Blood 11.4 fL 9.1-13.1 N [facility] Neutrophils/100 leukocytes in Blood by Automated count 66.1 % 41- 77 N [facility] Neutrophils [#/volume] in Blood by Automated count 5.5 U 1.7-7.6 N [facility] Lymphocytes/100 leukocytes in Blood by Automated count 25.2 % 14- 46 N [facility] Lymphocytes [#/volume] in Blood by Automated count 2.1 U 0.6-4.6 N [facility] Monocytes/100 leukocytes in Blood by Automated count 4.3 % 4-12 N [facility] Monocytes [#/volume] in Blood by Automated count 0.4 U 0.2-1.2 N [facility] Eosinophils/100 leukocytes in Blood by Automated count 3.5 % 0-7 N [facility] Eosinophils [#/volume] in Blood by Automated count 0.3 U 0.0-0.5 N [facility] Basophils/100 leukocytes in Blood by Automated count 0.7 % 0.4-1 .3 N [facility] Basophils [#/volume] in Blood by Automated count 0.1 U 0.0-0.2 N [facility] NUCLEATED RED BLOOD CELL 0 % [facility] NUCLEATED RED BLOOD CELL# 0 U [facility] Immature granulocytes [Presence] in Blood by Automated count 0-2 N [facility] Immature granulocytes [#/volume] in Blood by Automated count 0.0 U 0-0.1 N [facility] Manual Differential panel - Blood NO [facility] ID Date Data Source [id number] 10/08/2020 11:32:00 AM EST [facility] COLLECTED @ [facility] COLLECTED @ [facility] COLLECTED @ [facility] COLLECTED @ [facility]@10/08/20 1119: UA W/ DANA RO added. RFLXG = UMIC.Method of Collection:: Voided COLLECTED @ [facility]@10/10/20 0836: Urine ID Charge added. RFLXG = CHGURID. COLLECTED @ [facility]@10/08/20 1119: UA W/ DANA RO added. RFLXG = UMIC.Method of Collection:: Voided Name Value Range Interpretation Code Description Data Ria rce(s) Supporting Document(s) Color of Urine [facility] Appearance of Urine CLEAR [facility] pH of Urine by Test strip 5.5 5-8 [facility] Specific gravity of Urine by Refractometry 1.031 1.005 -1.030 Abnormal (applies to non-numeric results) [facility] Leukocyte esterase [Presence] in Urine by Test strip NEGATIVE Above high normal [facility] @DO MICRO!!!! Nitrite [Presence] in Urine by Test strip NEGATIVE [facility] Protein [Presence] in Urine by Test strip NEGATIVE Above high normal [facility] @DO MICRO!!!! Glucose [Mass/volume] in Urine by Automated test strip NEGATIVE NEG ATIVE [facility] Ketones [Presence] in Urine by Test strip NEGATIVE [facility] Urobilinogen [Presence] in Urine 0.2-1 EU/dl [facility] Bilirubin.total [Presence] in Urine by Automated test strip NEGATIVE [facility] Erythrocytes [#/volume] in Urine by Test strip SMALL NEGATIV E Above high normal [facility] @DO MICRO!!!! URINE MICROSCOPIC ADDED Microscopic Added [facility] ID Date Data Source [id number] 09/01/2020 12:53:00 PM EST [facility] Name Value Range Interpretation Code Description Data Ria rce(s) Supporting Document(s) BASIC METABOLIC PANEL [facility] BASIC METABOLIC PANEL Sodium [Moles/volume] in Serum or Plasma 138 mEq/L 134 - 153 [facility] Potassium [Moles/volume] in Serum or Plasma 3.9 mEq/L 3.6 - 5.0 [facility] Chloride [Moles/volume] in Serum or Plasma 98 mEq/L 98 - 107 [facility] Carbon dioxide, total [Moles/volume] in Serum or Plasma 31 MEQ/L 22 - 30 H [facility] Glucose [Mass/volume] in Serum or Plasma 116 MG/DL 65 - 110 H [facility] BUN 13 MG/DL 7 - 21 [facility] Creatinine [Mass/volume] in Serum or Plasma 0.6 MG/DL 0.7 - 1.5 L [facility] BUN/CREAT 22 8 - 27 [facility] Calcium [Mass/volume] in Serum or Plasma 9.7 MG/DL 8.4 - 10.2 [facility] Anion gap 3 in Serum or Plasma 9.0 mmol/L 8.0 - 16.0 [facility] AGE 45 yrs [facility] al AFR AMER GFR >60 mL/min [facility] Ho spital NON-AA GFR >60 mL/min [facility] ital Male GFR Inter prentation 20-49 yrs >60 mL/min Normal 50-59 yrs >56 mL/min Normal 60-69 yrs >49 mL/min Normal 70-79yrs >42 mL/min Normal 80 and above >35 mL/min Normal Female GFR Interpretation 20-39 yrs >60 mL/min Normal 40-49 yrs >58 mL/min Normal 50-59 yrs >51 mL/min Normal 60-69 yrs >45 mL/min Normal 70-79 yrs >39 mL/min Normal 80 and above >32 mL/min Normal ID Date Data Source NON RETAIL [facility] REQ FOR SERVI 09/01/2020 12:00:00 AM EST eC W1 ([facility]) Name Value Range Interpretation Code Description Data Ria rce(s) Supporting Document(s) URINE eCW1 ([facility]) ID Date Data Source URINE CULTURE 09/01/2020 12:00:00 AM EST eCW1 ([facility]) Name Value Range Interpretation Code Description Data Ria rce(s) Supporting Document(s) URINE CULTURE eCW1 ([facility]) Laboratory studies (set) URINE CULTU RE eCW1 ([facility]) ID Date Data Source UA URINALYSIS 09/01/2020 12:00:00 AM EST eCW1 ([facility]) Name Value Range Interpretation Code Description Data Ria rce(s) Supporting Document(s) Laboratory studies (set) UA URINALYS IS eCW1 ([facility]) ID Date Data Source [id number] 08/27/2020 07:12:[address] [facility] Name Value Range Interpretation Code Description Data Ria rce(s) Supporting Document(s) Urine culture result No growth [facility] ID Date Data Source [id number] 08/25/2020 10:41:[address] [facility] Patient Name: ALEKSANDR BEAL OB: 1975 Sex: F Pt Unit #: [id number] Location:[facility] Provider: Visit Date/Time: 08/25/20 Primary Insurance: BC/BS [facility] Secondary Insurance: Self Pay Intake Vital Signs 08/25/20 10:44 BP 174/78 Blood Pressure Location Lt brachial Position Sitting Respiration 18 Pulse 92 Pulse Strength Normal Pulse Source Pulse Oximeter Temp 99.0 F Temp Source Tympanic Pulse Oximetry (%) 99 Oxygen Delivery Method room air Intake Visit Reasons: Urinary complaint Nurse Note: 45 year old here today with a urinary complaint. She stated that for the past 2 weeks she has had urgency. Her urine may trickle out but there are times she will not go. She denies anyburning on urination, fever or chills. She noticed blood in her urine today. She stated she has a history of kidney stones but has had no pain noted. She stated that s he had nausea vomiting diarrhea headache and achy. 2 weeks ago. She thought maybe she was dehydrated. This lasted 6 days. She was not tested for Covid. She had called [facility] and they did not recommended to get tested. Is patient in pain?: Yes (bladder pressure) Allergies gabapentin Allergy (Mild, Unverified 09/05/19 12:54) Mouth PAIN topiramate Allergy (Mild, Unverified 09/05/19 12:54) KIDNEY STONES lactose Allergy (Verified 09/05/19 12:54) azithromycin [Azithromycin] Adverse Reaction (Severe, Verified 09/05/19 12:54) HEARTBURN, HEART PALPITATIONS, SHORTNESS OF BREATH fluticasone [From Flonase] Adverse Reaction (Intermediate, Verified 09/05/19 12:54) headache SEASONAL ALLERGIES Adverse Reaction (Mild, Verified 09/05/19 12:54) Is last menstrual period known: No Post menopausal: Yes (History of a Hysterectomy ) Patient : No Vision Wearing glasses?: Yes Fall Risk History of falls: No Ambulatory Aid:: None Gait/Transferring:: Normal HIV Testing Offer - ages 13-64 Requirement for HIV testing offer been met?: Declines today. Pretest education received and acknowledged SBIRT Annual Questionnaire Are you currently in recovery for alcohol or substance use?: No How many times in the past year have you had 4 or more drinks in a day?: None How many times in the past year have you used a recreational drug or used a prescription medication for nonmedical reasons?: None Coronavirus Screening Screening Have you traveled outside of [facility] or [facility] in the last 14 days.: No Coronavirus symptoms experienced: Muscle, body aches or fatigue (Called [facility] to get tested and they declined the pt. needed testing. ) and Nausea, vomiting or diarrhea [facility] Medical History Allergic rhinitis Cervical disc disorder Chronic sinusitis Gallbladder calculus Irritable colon Nephrolithiasis Obstructive sleep apnea Vitamin D deficiency Surgical History Appendectomy Cholecystectomy History of - surgery History of hysterectomy (01/26/16) Status post carpal tunnel release Status post tonsillectomy Family History Other Asthma Diabetes Hypertension Hypocholesteremia MS (multiple sclerosis) Social History Does the Patient have a Healthcare Proxy: No Does Patient have a DNR?: No Does Patient have a Living Will?: No Hx Recent Travel (where): No Smoking Status: Never smoker HPI Additional HPI HPI Details: as above. she has had 4 kidney stones all with severe pain. this hematuria that started this morning is painless. she does have nocturia and urgency. she has no history of uti. she has had a hysterectomy. Review of Systems Genitourinary: Reports hematuria, nocturia and urinary urgency; Denies difficulty voiding, dysuria, pelvic pain, flank pain, urinary frequency, vaginal discharge, vaginal odor or vaginal pruritus Exam Const General: cooperative, healthy appearing, no acute distress and well groomed Nutritional Appearance: obese Orientation: alert, awake and oriented x3 GI Palpation: soft, no hepatosplenomegaly and nontender Other: no cva tenderness Assessment Plan Assessment Plan (1) Gross hematuria: Status: Acute Code(s): R31.0 - Gross hematuria SNOMED Code(s): 163684565 Category: Medical Plan - Juliano Aguirre M.D.: she may have a uti, so will get a culture. if it is negative, will need to consider urology referral even though she is not a smoker. Orders: Orders: Urine culture Today Orders Other Medications: Discontinued: fluconazole Discontinued Reason: MD Order 150 mg PO Q3D 2 tabs 0RF Coding Level of Care Code 19672 Est Pt Intermediate Comp Exam Problem Focused Diagnoses Gross hematuria R31.0 <Electronically signed by Juliano Aguirer MD> 08/25/20 1110 Name Value Range Interpretation Code Description Data Ria rce(s) Supporting Document(s) ID Date Data Source [id number] 12/27/2019 10:23:00 AM EDT [facility] [address] [place] [place] [address] [phone] NAME SEX PT STATUS ACCOUNT NUMBER ALEKSANDR BEAL REG REF [id number] ORDERING PHYSICIAN LOCATION MEDICAL RECORD NO. Maddison Marx MD [id number] ATTENDING PHYSICIAN DATE OF DATE OF EXAM/TIME [...] COMMENTS 1. There is mild left atrial dilatation. Right atrium is at the upper limit of normal. Normal left ventricle, right ventricle, and aortic root. 2. Aortic valve sclerosis without stenosis. Mitral anular calcification. Normal tricuspid valve. Pulmonic valve not optimally visualized. 3. Estimated ejection fraction 60%. 4. No regional wall motion abnormality. 5. Normal right ventricular function. 6. No left ventricular thrombus. 7. Trivial pericardial effusion, primarily posteriorly. 8. Inferior vena cava not visualized. 9. The rhythm is sinus. DOPPLER AND COLOR FLOW 1. Abnormal mitral valve inflow pattern, suggesting diastolic dysfunction. Tissue Doppler not performed. 2. Trivial to mild mitral regurgitation. 3. Mild tricuspid regurgitation, yielding an RV systolic pressure of 38 mmHg. IMPRESSION 1. Technically difficult study. 2. Normal left and right ventricular systolic function. " 3. Possible diastolic dysfunction. 4. Mild tricuspid regurgitation, with borderline pulmonary pressure of 38 mmHg. 5. Trace to mild mitral regurgitation. RECOMMENDATION Correlate clinically. Reported By Henrik Fox MD on 12/27/19 1023 Signed By Henrik Fox MD on 01/14/20 1034 <<Signature on File>> Date Time CC: Juliano Aguirre M.D.; Henrik Fox M.D. Techn: SHIRLEY Carvajal Dt/Tm: 12/27/19 1338 Trans by: KARAN Gregorio Dt/Tm: : Total DLP = 0.00 mGy-cm : Total Radiation Dose = 0.0000 mSv Lifetime Dose: 18.1367 mSv Name Value Range Interpretation Code Description Data Ria rce(s) Supporting Document(s) ID Date Data Source [id number] 12/19/2019 06:06:00 AM EDT [facility] Name Value Range Interpretation Code Description Data Ria rce(s) Supporting Document(s) Thyroxine (T4) [Mass/volume] in Serum or Plasma 8.8 ug/dL 4.5-12.0 [facility] Performed at: [facility] [place] [id number] Director: Priyanka Her MD, Phone: [phone] ID Date Data Source [id number] 12/18/2019 11:09:00 AM EDT [facility] Name Value Range Interpretation Code Description Data Ria rce(s) Supporting Document(s) Thyrotropin [Units/volume] in Serum or Plasma by Detec tion limit <= 0.005 mIU/L 1.04 u[iU]/mL 0.35-5.50 N [facility] ID Date Data Source [id number] 11/21/2019 02:13:00 PM EDT [facility] [address] [place] [address] [phone] NAME SEX PT STATUS ACCOUNT NUMBER ALEKSANDR BEAL REG REF [id number] ORDERING PHYSICIAN LOCATION MEDICAL RECORD NO. Juliano Aguirre M.D. CT [id number] ATTENDING PHYSICIAN DATE OF DATE OF EXAM/TIME [...] tracts otherwise essentially clear. Dose reduction was perfo rmed utilizing CARE dose with automated adjustment of the kV and MAS according to patient size, iterative reconstruction, automated exposure control, as well as adaptivedose shielding. Reported By Donnell Maldonado MD on 11/21/19 1413 Signed By Donnell Maldonado MD on 11/21/19 1416 Date Time CC: Juliano Aguirre M.D.; Donnell Maldonado MD Techn: ANKITA Carvajal Dt/Tm: Trans by: DT Prt Dt/Tm: 4: Total DLP = 107.00 mGy-cm : Total Radiation Dose = 0.3317 mSv Lifetime Dose: 18.1367 mSv Name Value Range Interpretation Code Description Data Ria rce(s) Supporting Document(s) ID Date Data Source [id number] 10/18/2019 12:08:[address] [facility] Patient Name: ALEKSANDR BEAL : 1975 Sex: F Pt Unit #: [id number] Location:[facility] Provider: Visit Date/Time: 10/18/19 Primary Insurance: [place] [facility] [employer] Secondary Insurance: Self Pay Intake Vital Signs 10/18/19 12:13 Current Weight 303 lb Weight Measurement Method Standing Scale BP 140/78 Blood Pressure Location Lt brachial Pulse 70 Pulse Strength Normal Temp 98.3 F Temp Source Tympanic Pulse Oximetry (%) 96 Oxygen Delivery Method room air Intake Visit Reasons: Abdominal pain Nurse Note: Here for recheck on acute sinusitis pt has completed three rounds of antibiotics and continues to not feel well. Also , continues to have pain in her right side. Allergies gabapentin Allergy (Mild, Unverified 09/05/19 12:54) Mouth PAIN topiramate Allergy (Mild, Unverified 09/05/19 12:54) KIDNEY STONES lactose Allergy (Verified 09/05/19 12:54) azithromycin [Azithromycin] Adverse Reaction (Severe, Verified 09/05/19 12:54) HEARTBURN, HEART PALPITATIONS, SHORTNESS OF BREATH fluticasone [From Flonase] Adverse Reaction (Intermediate, Verified 09/05/19 12:54) headache SEASONAL ALLERGIES Adverse Reaction (Mild, Verified 09/05/19 12:54) HIV Testing Offer - ages 13-64 Requirement for HIV testing offer been met?: Declines today. Pretest education received and acknowledged [facility] Social History Does the Patient have a Healthcare Proxy: No Does Patient have a DNR?: No Does Patient have a Living Will?: No Hx Recent Travel (where): No HPI Additional HPI HPI Details: see above. she has a round of azithromycin followed by 14 days of ceftin. she felt a lot better on the ceftin, but symptoms started to return once she stopped it. the pain in her right flank has not changed. it is partially relieved by putting pressure on it or sleeping on her right side. Abdominal Pain History of Present Illness Associated symptoms: Reports diarrhea and vomiting Review of Systems Const Reports body ache, Denies chills, Reports fatigue, Denies fever(s), Reports headache(s) and Reports malaise Eyes Reports blurry vision and Reports irritation ENT Reports headache(s) GI Reports diarrhea and Reports vomiting Neuro Reports headache(s) Endo Reports fatigue Exam Const General: cooperative, no acute distress and well groomed Nutritional Appearance: obese Orientation: alert, awake and oriented x3 HENMT Head: normal to inspection, normocephalic and atraumatic Ears: hearing grossly normal bilaterally, external ears normal, TM's normal bilaterally and EAC's normal General nose exam: external nose normal and no nasal discharge Face and sinus: normal facial exam Mouth: oral mucosae normal, lip normal, tongue normal, oropharynx normal and moist mucous membranes Throat: posterior oropharynx normal Eyes General: appearance normal, both eyes and all related structures Alignment and Position: alignment normal Periorbital: periorbital findings normal Eyelids: eyelids normal Conjunctivae: conjunctivae normal Sclera: sclerae normal Cornea: corneas normal Pupils: PERRL EOM: EOM intact bilaterally Neck Neck: normal visual inspection, no lymphadenopathy and supple Neck mass: No Thyroid: thyroid normal Chest Chest: normal inspection of the chest Resp Effort Inspection: normal respiratory effort Auscultation: clear to auscultation bilaterally Cardio Rate: regular rate Rhythm: regular rhythm Heart Sounds: S1 normal, S2 normal, no click, no gallops and no murmurs Psych Affect: anxious affect Insight: fair Judgment: fair Assessment Plan Assessment Plan (1) Acute sinusitis: Status: Acute Code(s): J01.90 - Acute sinusitis, unspecified SNOMED Code(s): 33081965 Category: Medical Plan - Juliano Aguirre M.D.: i am not certain that she has sinusitis, but i don't know what else would respond to ceftin, so willtreat her for 2 more weeks and recheck then. the persistence of the flank pain along with these nonspecific symptoms make me wonder about somatization. offered referral for colonoscopy, but she deferred. Orders Other Medications: Refilled: cefuroxime axetil 500 mg PO BID 30 tabs 0RF Electronically Signed By: <Electronically signed by Juliano Aguirre MD> Date/Time Signed: 10/18/19 1242 Name Value Range Interpretation Code Description Data Ria rce(s) Supporting Document(s) ID Date Data Source [id number] 10/08/2019 02:01:[address] [facility] Patient Name: ALEKSANDR BEAL : 1975 Sex: F Pt Unit #: [id number] Location:[facility] Provider: Visit Date/Time: 10/08/19 Primary Insurance: BC/BS OF [facility] Secondary Insurance: Self Pay Intake Vital Signs 10/08/19 14:04 Current Weight 309 lb Weight Measurement Method Standing Scale BP 128/74 Blood Pressure Location Lt brachial Position Sitting Respiration 16 Pulse 73 Pulse Strength Normal Temp 98.2 F Temp Source Tympanic Pulse Oximetry (%) 97 Oxygen Delivery Method room air Intake Visit Reasons: Sinus infection Nurse Note: Here today for recheck on sinus infection . Does feel much better but does have right ear pain , " scratchy throat ", and some nasal congestion . Manager Of Operations Required: No Accompanied by: self Is patient in pain?: No Allergies gabapentin Allergy (Mild, Unverified 09/05/19 12:54) Mouth PAIN topiramate Allergy (Mild, Unverified 09/05/19 12:54) KIDNEY STONES lactose Allergy (Verified 09/05/19 12:54) azithromycin [Azithromycin] Adverse Reaction (Severe, Verified 09/05/19 12:54) HEARTBURN, HEART PALPITATIONS, SHORTNESS OF BREATH fluticasone [From Flonase] Adverse Reaction (Intermediate, Verified 09/05/19 12:54) headache SEASONAL ALLERGIES Adverse Reaction (Mild, Verified 09/05/19 12:54) HIV Testing Offer - ages 13- 64 Requirement for HIV testing offer been met?: Declines today. Pretest education received and acknowledged [facility] Medical History Allergic rhinitis (Acute) Cervical disc disorder (Inactive) Gallbladder calculus Irritable colon Nephrolithiasis (Inactive) Obstructive sleep apnea (Acute) Vitamin D deficiency (Acute) Social History Does the Patient have a Healthcare Proxy: No Does Patient have a DNR?: No Does Patient have a Living Will?: No Hx Recent Travel (where): No HPI Additional HPI HPI Details: as above. she feels much better since starting the ceftin, but has some lingering sinus and upper respiratory symptoms. she is taking the miralax and having several loose bm's per day, but the pain has not improved. Sinusitis History of Present Illness Current sy mptoms: Reports nasal congestion; Denies fever(s), nasal discharge or cough Review of Systems Const Denies chills, Denies fever(s) and Denies malaise ENT Denies ear discharge, Reports otalgia, Reports nasal congestion, Denies nasal discharge and Reports sinus pressure Resp Denies cough Exam Const General: cooperative, healthy appearing, no acute distress and well groomed Nutritional Appearance: obese Orientation: alert, awake and oriented x3 HENMT Head: normal to inspection, normocephalic, atraumatic and scalp tenderness Ears: hearing grossly normal bilaterally, external ears normal, TM's normal bilaterally and EAC's normal General nose exam: external nose normal and no nasal discharge Face and sinus: normal facial exam Mouth: oral mucosae normal, lip normal, tongue normal, oropharynx normal and moist mucous membranes Throat: posterior oropharynx normal Eyes General: appearance normal, both eyes and all related structures Alignment and Position: alignment normal Periorbital: periorbital findings normal Eyelids: eyelids normal Conjunctivae: conjunctivae normal Sclera: sclerae normal Cornea: corneas normal Pupils: PERRL EOM: EOM intact bilaterally Neck Neck: normal visual inspection, no lymphadenopathy and supple Neck mass: No Thyroid: thyroid normal Assessment Plan Assessment Plan (1) Acute sinusitis: Status: Acute Code(s): J 01.90 - Acute sinusitis, unspecified SNOMED Code(s): 96576270 Category: Medical Plan - Juliano Aguirre M.D.: the infection is not completely resolved, so will add 7 more days of ceftin. recheck in 10 days forthe abdominal pain and stay on miralax. she may need a colonoscopy. Orders Other Medications: New: cefuroxime axetil 500 mg PO BID 14 tabs 0RF Electronically Signed By: <Electronically signed by Juliano Aguirre MD> Date/Time Signed: 10/08/19 1423 Name Value Range Interpretation Code Description Data Ria rce(s) Supporting Document(s) ID Date Data Source [id number] 09/30/2019 09:54:52 AM EST [facility] PC[facility]: Aleksandr BonitaB: 1975Provider: Nelda Cruz: 09/27/2019 History of Present IllnessPatient is a 44-year-old female presents to the office for her third postop visit following neck surgery on 03/25/19. Chief complaint of occasional neck pain described as an ache. Denies any radicular symptoms. Symptoms do not prevent her from doing her normal daily activities/hobbies. Pleased with her outcome from surgery. Results/Data XRays were ordered, obtained and interpreted today in the office. Indication: follow-up post-operative evaluation Site: cervical spine Views: 2 Views, AP/Lateral Standing Impression: Hardware C5-6 and C6-7 in good position. Assessment 1. Postsurgical arthrodesis status (V45.4) (Z98.1) 2. Neck pain (723.1) (M54.2) Plan X-Ray I Cervical Spine - 2 views (XRays were ordered, obtained and interpreted today inthe office. Indication: pain/dysfunction.); Status:Complete; Done: [id number] Perform:SOS22; Due:[id number]; Last Updated By:Poonam Gutierrez; 09/27/2019 10:50:39 AM;Ordered; For:Neck pain; Ordered By:Rafael Cruz Plan, Assessment and Recommendation(s) The nature of the diagnosis and various treatment alternatives were discussed today, including invasive, operative, and non- operative options. Patient is status post C5-6 and C6-7 discectomy/fusion on 03/25/19. Clinically she is doing very well. She will continue with home exercises and activities as tolerated. Follow-up as needed. This document was dictated and electronically signed using [employer] Speaking software. A reasonable attempt at proof reading has been made to minimize errors. Please call with any questions. Signatures Electronically signed by : Gary Dumont; Sep 28 2019 9:19PM EST (Author) Electronically signed by : Tony Farooq M.D.; Sep 30 2019 9:54AM EST Name Value Range Interpretation Code Description Data Ria rce(s) Supporting Document(s) ID Date Data Source [id number] 09/23/2019 12:07:00 PM EST [facility] Patient Name: ALEKSANDR BEAL : 1975 Sex: F Pt Unit #: [id number] Location:[facility] Provider: Visit Date/Time: 09/23/19 Primary Insurance: BC/BS [facility] Secondary Insurance: Self Pay Intake Vital Signs 09/23/19 12:10 Current Weight 304 lb BP 134/78 Blood Pressure Location Lt brachial Position Sitting Respiration 18 Pulse 89 Pulse Strength Normal Temp 98.8 F Temp Source Tympanic Pulse Oximetry (%) 97 Oxygen Delivery Method room air Intake Visit Reasons: Cold symptoms Nurse Note: was seen at after hours clinic on 09-05-19 where she was dx with sinusitis and given doxycycline, she states this did not help her . continues to have NUNES , Sinus pain, nasal drainage and cough , ear pain and fatigue x 1 month . Manager Of Operations Required: No Accompanied by: self Is patient in pain?: Yes Allergies gabapentin Allergy (Mild, Unverified 09/05/19 12:54) Mouth PAIN topiramate Allergy (Mild, Unverified 09/05/19 12:54) KIDNEY STONES lactose Allergy (Verified 09/05/19 12:54) azithromycin [Azithromycin] Adverse Reaction (Severe, Verified 09/05/19 12:54) HEARTBURN, HEART PALPITATIONS, SHORTNESS OF BREATH fluticasone [From Flonase] Adverse Reaction (Intermediate, Verified 09/05/19 12:54) headache SEASONAL ALLERGIES Adverse Reaction (Mild, Verified 09/05/19 12:54) HIV Testing Offer - ages 13-64 Requirement for HIV testing offer been met?: Declines today. Pretest education received and acknowledged [facility] Social History Does the Patient have a Healthcare Proxy: No Does Patient have a DNR?: No Does Patient have a Living Will?: No Hx Recent Travel (where): No HPI Additional HPI HPI Details: as above. she has a history of recurrent sinusitis. the right upper flank pain has no changed. she has no pain on the left or constipation. Cough Pulmonary Results: No Data to Display Review of Systems Const Reports headache(s) ENT Reports otalgia, Reports facial pain, Reports headache(s), Reports nasal congestion, Reports nasal discharge, Reports post nasal drip and Reports sore throat Neuro Reports headache(s) Exam Const General: cooperative, no acute distress and well groomed Nutritional Appearance: obese Orientation: alert, awake and oriented x3 HENMT Head: normal to inspection, normocephalic and atraumatic Ears: hearing grossly normal bilaterally, external ears normal, TM's normal bilaterally and EAC's normal General nose exam: external nose normal and no nasal discharge Face and sinus: normal facial exam and sinus tenderness Mouth: oral mucosae normal, lip normal, tongue normal, oropharynx normal and moist mucous membranes Throat: posterior oropharynx normal Eyes General: appearance normal, both eyes and all related structures Alignment and Position: alignment normal Periorbital: periorbital findings normal Eyelids: eyelids normal Conjunctivae: conjunctivae normal Sclera: sclerae normal Cornea: corneas normal Pupils: PERRL EOM: EOM intact bilaterally Neck Neck: normal visual inspection, no lymphadenopathy and supple Neck mass: No Thyroid: thyroid normal Chest Chest: normal inspection of the chest Resp Effort Inspection: normal respiratory effort Auscultation: clear to auscultation bilaterally Cardio Jugular venous pressure: no JVD Rate: regular rate Rhythm: regular rhythm Heart Sounds: S1 normal, S2 normal, no click, no gallops and no murmurs Assessment Plan Assessment Plan (1) Acute sinusitis: Status: Acute Code(s): J01.90 - Acute sinusitis, unspecified SNOMED Code(s): 68941909 Category: Medical Plan - Juliano Aguirre M.D.: will rx with ceftin and recheck in [address] of sinuses if does not respond. relative to the results of her ct and us of the [facility], will start miralax daily. it seems very odd that she could have an obstructing stone on the left with no pain. may need urologic referral. Orders Other Medications: New: cefuroxime axetil 500 mg PO BID 20 tabs 0RF Electronically Signed By: <Electronically signed by Juliano Aguirre MD> Date/Time Signed: 09/23/19 1236 Name Value Range Interpretation Code Description Data Ria rce(s) Supporting Document(s) ID Date Data Source [id number] 09/18/2019 01:23:00 PM [facility] [address] [place] [address] [phone] NAME SEX PT STATUS ACCOUNT NUMBER ALEKSANDR BEAL REG REF [id number] ORDERING PHYSICIAN LOCATION MEDICAL RECORD NO. Juliano Aguirre M.D. LAB [id number] ATTENDING PHYSICIAN DATE OF DATE OF EXAM/TIME [...] 1331 Date Time CC: Juliano Aguirre M.D.; oDnnell Maldonado MD Techn: ZEHTY Trans Dt/Tm: Trans by: DT Prt Dt/Tm: : Total DLP = 1187.00 mGy-cm : Total Radiation Dose = 17.8050 mSv Lifetime Dose: 17.8050 mSv Name Value Range Interpretation Code Description Data Ria rce(s) Supporting Document(s) ID Date Data Source [id number] 09/18/2019 12:45:00 PM EST [facility] Name Value Range Interpretation Code Description Data Ria rce(s) Supporting Document(s) Leukocytes [#/volume] in Blood by Automated count 9.3 10*3/uL 4.45-10 .71 N [facility] Erythrocytes [#/volume] in Blood by Automated count 4.60 10*6/uL 4.20 -5.40 [facility] Hemoglobin [Moles/volume] in Blood 12.5 g/dL 10.7-15.4 N [facility] Hematocrit [Volume Fraction] of Blood by Automated count 40.0 % 3 7-47 N [facility] Erythrocyte mean corpuscular volume [Ent itic volume] in Cord blood by Automated count 87.0 fL 80-96 N [facility] Erythrocyte mean corpuscular hemoglobin [Entitic mass] by Automated count 27.2 pg 27-[address] [facility] Erythrocyte mean corpuscular hemoglobin concentration [Mass/volume] in Cord blood 31.3 g/dL 33-37 Below low normal [facility] Erythrocyte distribution width [Entitic volume] by Automated count 14 % 11-15 N [facility] Platelets [#/volume] in Blood by Automated count 275 10*3/uL 130-472 N [facility] Platelet mean volume [Entitic volume] in Blood 10.5 fL 9.1-13.1 [facility] Neutrophils/100 leukocytes in Blood by Automated count 69.0 % 41- 77 N [facility] Neutrophils [#/volume] in Blood by Automated count 6.4 U 1.7-7.6 N [facility] Lymphocytes/100 leukocytes in Blood by Automated count 21.1 % 14- 46 N [facility] Lymphocytes [#/volume] in Blood by Automated count 2.0 U 0.6-4.6 N [facility] Monocytes/100 leukocytes in Blood by Automated count 5.5 % 4-12 N [facility] Monocytes [#/volume] in Blood by Automated count 0.5 U 0.2-1.2 N [facility] Eosinophils/100 leukocytes in Blood by Automated count 3.5 % 0-7 N [facility] Eosinophils [#/volume] in Blood by Automated count 0.3 U 0.0-0.5 N [facility] Basophils/100 leukocytes in Blood by Automated count 0.5 % 0.4-1 .3 N [facility] Basophils [#/volume] in Blood by Automated count 0.1 U 0.0-0.2 N [facility] NUCLEATED RED BLOOD CELL 0 % [facility] NUCLEATED RED BLOOD CELL# 0 U [facility] Immature granulocytes [Presence] in Blood by Automated count 0-2 N [facility] Immature granulocytes [#/volume] in Blood by Automated count 0.0 U 0-0.1 N [facility] Manual Differential panel - Blood NO [facility] ID Date Data Source [id number] 09/18/2019 12:45:00 PM EST [facility] Name Value Range Interpretation Code Description Data Ria rce(s) Supporting Document(s) Urea nitrogen [Mass/volume] in Serum or Plasma 16 mg/dL 9-23 N [facility] Sodium [Moles/volume] in Serum or Plasma 142 mmol/L 132-146 N [facility] Potassium [Moles/volume] in Serum or Plasma 4.2 mmol/L 3.5-5.5 [facility] Chloride [Moles/volume] in Serum or Plasma 106 mmol/L 99-109 N [facility] Carbon dioxide, total [Moles/volume] in Serum or Plasma 31 mmol/L 20 -31 N [facility] Anion gap in Serum or Plasma 9 mmol/L 8-16 N L [facility] Glucose [Mass/volume] in Serum or Plasma 91 mg/dL 74-106 N [facility] Creatinine 0.5 mg/dL 0.5-1.1 N [facility] Glomerular filtration rate/1.73 sq M.pre dicted [Volume Rate/Area] in Serum or Plasma Greater Than 60 ABOVE 60 [facility] Alanine aminotransferase [Enzymatic acti vity/volume] in Serum or Plasma by With P-5'-P 19 U/L 10-49 N [facility] ital Aspartate aminotransferase [Enzymatic ac tivity/volume] in Serum or Plasma by With P-5'-P 15 U/L 0-33 N [facility] pital Alkaline phosphatase [Enzymatic activity/volume] in Serum or Plasma 85 U/L 45-129 N [facility] Calcium [Mass/volume] in Serum or Plasma 9.0 mg/dL 8.5-10.1 [facility] Bilirubin.total [Mass/volume] in Serum or Plasma 0.3 mg/dL 0.3-1.2 [facility] Albumin [Mass/volume] in Serum or Plasma by Bromocresol purple (BCP) dye binding method 3.4 g/dL 3.2-4.8 [facility] ital Protein [Mass/volume] in Serum or Plasma 7.0 g/dL 5.7-8.2 [facility] ID Date Data Source [id number] 09/18/2019 12:45:[address] [facility] Name Value Range Interpretation Code Description Data Ria rce(s) Supporting Document(s) Erythrocyte sedimentation rate by Westergren method 30 mm/hr 0-20 Above high normal [facility] @[facility]enter manual test result: 30@by Breann Castro at 09/18/19 1244. ID Date Data Source [id number] 09/09/2019 10:41:00 AM [facility] [address], [place] [id number] [phone] NAME SEX PT STATUS ACCOUNT NUMBER ALEKSANDR BEAL REG REF [id number] ORDERING PHYSICIAN LOCATION MEDICAL RECORD NO. Juliano Aguirre M.D. [id number] ATTENDING PHYSICIAN DATE OF DATE OF EXAM/TIME Juliano Aguirre MD 1975 09/09/19 0745 TYPE / EXAM US RENAL REASON FOR EXAM cva pain COMPARISON: None available. FINDINGS: Overall, the study is somewhat limited by patient body habitus. Bilaterally, the kidneys are normal in contour and echogenicity. There is no mass, cyst, or hydronephrosis on either side. The right kidney measures sabrina roximately 10.6 cm in long diameter, and the left kidney measures approximately 12.3 cm in long diameter. IMPRESSION: No mass, cyst, or hydronephrosis on either side. Reported By Donnell Maldonado MD on 09/09/19 1041 Signed By Donnell Maldonado MD on 09/09/19 1043 Date Time CC: Juliano Aguirre M.D.; Donnell Maldonado MD Techn: BUSMI Trans Dt/Tm: Trans by: DT Prt Dt/Tm: 1345-3560: Total DLP = 0.00 mGy-cm 5270-4891: Total Radiation Dose = 0.0000 mSv Lifetime Dose: 0 mSv Name Value Range Interpretation Code Description Data Ria rce(s) Supporting Document(s) ID Date Data Source [id number] 09/09/2019 08:23:00 AM EST [facility] [address], [place] [address] [phone] NAME SEX PT STATUS ACCOUNT NUMBER ALEKSANDR BEAL REG REF [id number] ORDERING PHYSICIAN LOCATION MEDICAL RECORD NO. Juliano Aguirre M.D. [id number] ATTENDING PHYSICIAN DATE OF DATE OF EXAM/TIME Juliano Aguirre MD 1975 09/09/19 0731 TYPE / EXAM Xray Ribs Unilateral RT REASON FOR EXAM cva pain COMPARISON: July 22, 2013 FINDINGS: PA chest and multiple oblique images of the right ribs were acquired. Images demonstrate no displaced rib fracture. No lytic or blastic osseous lesion is seen, and there is no right-sided pleural effusion or p neumothorax. IMPRESSION: No displaced rib fracture. No right-sided pleural effusion or pneumothorax. Reported By Donnell Maldonado MD on 09/09/19822 Signed By Donnell Maldonado MD on 09/09/19830 Date Time CC: Juliano Aguirre M.D.; Donnell Maldonado MD Techn: CUMME Trans Dt/Tm: Trans by: DT Prt Dt/Tm: 4189-3797: Total DLP = 0.00 mGy-cm Fluoroscopy Time (in secs): Name Value Range Interpretation Code Description Data Ria rce(s) Supporting Document(s) ID Date Data Source [id number] 09/05/2019 12:43:[address] [facility] Patient Name: Aleksandr Beal : 1975 Sex: F Pt Unit #: [id number] Location:[facility] Provider: Visit Date/Time: 09/05/19 Primary Insurance: BC/BS [facility] Secondary Insurance: Self Pay Intake Vital Signs 09/05/19 12:43 Current Height 5 ft 5 in Current Weight 301 lb BMI 50.1 BP 140/92 Respiration 18 Pulse 76 Pulse Strength Normal Pulse Source Palpation Temp 98 F Temp Source Oral Pulse Oximetry (%) 99 Oxygen Delivery Method room air Intake Visit Reasons: Sick visit (adolescent/adult) Nurse Note: Pt states she has had a cough and congestion x 1 week. She has been taking otc cold medicine. She c/o bilat ear pain, throat soreness, sinus, facial pain and mouth pain Manager Of Operations Required: No Is patient in pain?: Yes (face/ears) Pain scale (1-10): 5 Allergies gabapentin Allergy (Mild, Unverified 09/05/19 12:54) Mouth PAIN topiramate Allergy (Mild, Unverified 09/05/19 12:54) KIDNEY STONES lactose Allergy (Verified 09/05/19 12:54) azithromycin [Azithromycin] Adverse Reaction (Severe, Verified 09/05/19 12:54) HEARTBURN, HEART PALPITATIONS, SHORTNESS OF BREATH fluticasone [From Flonase] Adverse Reaction (Intermediate, Verified 09/05/19 12:54) headache SEASONAL ALLERGIES Adverse Reaction (Mild, Verified 09/05/19 12:54) Medications ascorbic acid (vitamin C) (Vitamin C With Dee Hips) 500 mg PO DAILY doxycycline hyclate 100 mg PO BID estradiol 2 mg PO QDAY loratadine 10 mg PO DAILY multivitamin 1 ea PO DAILY vitamin B comp with C no.4 (Super B Complex + C) 150 mg PO DAILY Is last menstrual period known: No Post menopausal: No Patient : No Fall Risk Ambulatory Aid:: None Gait/Transferring:: Normal HIV Testing Offer - ages 13-64 HIV testing Offer: Yes Requirement for HIV testing offer been met?: Declines today. Pretest education received and acknowledged [employer] Annual Questionnaire Are you currently in recovery for alcohol or substance use?: No PFSH Medical History Allergic rhinitis (Acute) Cervical disc disorder (Inactive) Gallbladder calculus Irritable colon Nephrolithiasis (Inactive) Obstructive sleep apnea (Acute) Vitamin D deficiency (Acute) Surgical History Appendectomy Cholecystectomy History of - surgery History of hysterectomy (01/26/16) Status post carpal tunnel release Status post tonsillectomy Family History Other Asthma Diabetes Hypertension Hypocholesteremia MS (multiple sclerosis) Social History Does the Patient have a Healthcare Proxy: No Does Patient have a DNR?: No Does Patient have a Living Will?: No Hx Recent Travel (where): No Smoking Status: Never smoker HPI Additional HPI HPI Details: upper resp sxs over a week, not getting better, throat pain is worse than it was, achy all over, hurts below shoulder blades in back with cough. Review of Systems Const Reports body ache, Denies difficulty sleeping, Reports headache(s) and Denies weakness Eyes Denies eye discharge, Denies irritation, Denies itchy eyes and Denies eye pain ENT Denies dental pain, Denies vertigo, Denies dizziness, Denies ear discharge, Reports otalgia, Reportsheadache(s), Reports hoarseness, Denies epistaxis, Reports nasal congestion, Reports nasal discharge, Denies neck pain, Reports sinus pain, Reports sinus pressure and Denies sore throat Card Denies chest pain and Denies syncope Resp Reports cough, Denies hemoptysis, Denies excessive phlegm production and Denies wheezing GI Denies abdominal pain, Denies change in bowel habits, Denies diarrhea, Denies nausea and Denies vomiting Musc Reports back pain (thoracic), Reports myalgias, Denies limited range of motion and Denies neck pain Skin/Breast Denies pruritus and Denies rash Neuro Denies behavioral changes, Denies vertigo, Denies dizziness, Denies syncope, Reports headache(s) andDenies weakness Psych Denies behavioral changes and Denies irritability Cecilio/Lymph Denies lymphadenopathy Aller/Immun Denies urticaria, Denies itchy eyes and Denies wheezing Exam Const General: cooperative, comfortable, no acute distress, well developed, ill appearing (mildly) acutelyand well hydrated Nutritional Appearance: obese morbidly obese (massive) Orientation: alert, awake and oriented x3 HENMT Head: normal to inspection Ears: hearing grossly normal bilaterally, external ears normal and TM's normal bilaterally General nose exam: external nose normal, mucous membranes and turbinates abnormal boggy and erythematous and nasal discharge purulent Face and sinus: normal facial exam and sinus tenderness maxillary (bilat) Mouth: oral mucosae normal, lip normal, oropharynx normal and moist mucous membranes Throat: posterior oropharynx normal (pink but without swelling), uvula midline and no postnasal drainage Eyes General: appearance normal, both eyes and all related structures Eyelids: eyelids normal Conjunctivae: conjunctivae normal Pupils: PERRL Neck Neck: normal visual inspection, full ROM and no lymphadenopathy Lymphatic: no lymphadenopathy noted Resp Effort Inspection: normal respiratory effort, able to speak in complete sentences (very high pitched squeeky voice ), no audible wheezes and no cough Auscultation: clear to auscultation bilaterally, normal I/E ratio, no rhonchi and no wheezes Cardio Rate: regular rate Rhythm: regular rhythm Heart Sounds: S1 normal, S2 normal, no click, no gallops and no murmurs GI Palpation: soft, no guarding and nontender Skin Lesions: no lesions (of exposed skin ) Rashes: no rashes Hair: normal Nails: normal Neuro General: alert, awake, oriented x3, gait normal and moves all extremities Cognition: normal cognition Gait: normal gait Motor: muscle tone normal throughout Extrem General: capillary refill normal and no clubbing, cyanosis or edema Psych Appearance: grossly normal Mental Status: mental status grossly normal Speech and Movement: speech and movement normal Mood: congruent mood Affect: normal affect Attitude: cooperative Thought Process: normal Thought Content: normal Insight: fair Judgment: fair Assessment Plan Assessment Plan (1) Sinusitis: Code(s): J32.9 - Chronic sinusitis, unspecified Qualifiers: Sinusitis location: maxillary Chronicity: acute Recurrence: not specified as recurrent Qualified Code(s): J01.00 - Acute maxillary sinusitis, unspecified Additional Comments Additional Comments: Supportive care: Vit c, push clear fluids, rest, steam, gargle if sore throat. Return to clinic if worsening despite this conservative treatment course or if not fully well in time discussed. abx as ordered, consider mucinex and lots of water, RTC or see PCP if worsening despite this txt Orders Other Medications: New: doxycycline hyclate 100 mg PO BID 14 tabs 0RF Electronically Signed By: <Electronically signed by Tavia PATEL> Date/Time Signed: 09/05/19 1407 Name Value Range Interpretation Code Description Data Ria rce(s) Supporting Document(s) ID Date Data Source [id number] 08/29/2019 08:20:[address] [facility] Patient Name: Aleksandr Beal : 1975 Sex: F Pt Unit #: [id number] Location:[facility] Provider: Visit Date/Time: 08/29/19 Primary Insurance: /[facility] Secondary Insurance: Self Pay ADDENDUM Office Procedure Documentation entered by Debbie Evans 08/29/19 09:51: Results Urinalysis (DipStick) Urine Specific [place] 1.015 Last Edit by Debbie Evans on 08/29/19 09:51 Urine PH 5 Last Edit by Debbie Evans on 08/29/19 09:51 Urine Leukocytes NEGATIVE Last Edit by Debbie Evans on 08/29/19 09:51 Urine Nitrates NEGATIVE Last Edit by Debbie Evans on 08/29/19 09:51 Urine Protein NEGATIVE Last Edit by Debbie Evans on 08/29/19 09:51 Urine Ketones NEG mg/dl Last Edit by Debbie Evans on 08/29/19 09:51 Urine Urobilinogen NORMAL Last Edit by Debbie Evans on 08/29/19 09:51 Urine Blood NEGATIVE Last Edit by Debbie Evans on 08/29/19 09:51 Urine Hemoglobin NEGATIVE Last Edit by Debbie Evans on 08/29/19 09:51 Urine Glucose NORMAL Last Edit by Debbie Evans on 08/29/19 09:51 Urine Bilirubin NORMAL Last Edit by Debbie Evans on 08/29/19 09:51 <Electronically signed by Debbie Evans > Addendum Signed By: Date/Time: 08/29/19 0952 Intake Vital Signs 08/29/19 08:23 Current Weight 305 lb BP 134/78 Blood Pressure Location Lt brachial Position Sitting Respiration 16 Pulse 91 Pulse Strength Normal Temp 98.2 F Temp Source Tympanic Pulse Oximetry (%) 96 Oxygen Delivery Method room air Intake Visit Reasons: Back pain Nurse Note: Here for recheck on back pain , started 3 week trial of Naproxen and asked to return forrecheck and pt states back pain in the same has stopped the naproxen since it was not effective and reports that back pain gets worse while she is urinating. Also c/o bilateral ear and throat pain x 3-4 days. Manager Of Operations Required: No Accompanied by: self Is patient in pain?: Yes (back pain ) Pain scale (1-10): 3 Allergies gabapentin Allergy (Mild, Unverified 03/05/19 09:08) Mouth PAIN topiramate Allergy (Mild, Unverified 03/05/19 09:08) KIDNEY STONES lactose Allergy (Verified 10/15/18 13:10) azithromycin [Azithromycin] Adverse Reaction (Severe, Verified 10/15/18 13:10) HEARTBURN, HEART PALPITATIONS, SHORTNESS OF BREATH fluticasone [From Flonase] Adverse Reaction (Intermediate, Verified 05/27/19 08:44) headache SEASONAL ALLERGIES Adverse Reaction (Mild, Verified 10/15/18 13:10) HIV Testing Offer - ages 13-64 Requirement for HIV testing offer been met?: Patient reports past refusal [facility] Surgical History Appendectomy Cholecystectomy History of - surgery History of hysterectomy (01/26/16) Status post carpal tunnel release Status post tonsillectomy Family History (Updated 01/12/16 @ 14:57 by Debra Estrada) Other Asthma Diabetes Hypertension Hypocholesteremia MS (multiple sclerosis) Social History Does the Patient have a Healthcare Proxy: No Does Patient have a DNR?: No Does Patient have a Living Will?: No Hx Recent Travel (where): No HPI Additional HPI HPI Details: as above. she has now had one month of burning right flank pain radiating from the mid back to the subcostal area. there has been no injury. it is not positional. it is associated withurinary urgency and frequency. she has a history of kidney stones, but this pain is completely different. treatment with antibiotics for uti and naproxen did not help. two urine dips have been normal. Back Pain Associated symptoms: Denies dysuria or urinary incontinence Review of Systems Resp Denies pain on inspiration and Denies pain with cough Denies hematuria, Reports urinary frequency, Reports nocturia, Denies dysuria, Reports flank pain, Denies urinary incontinence, Reports urinary urgency, Denies vaginal discharge and Denies vaginal pruritus Exam Const General: cooperative, no acute distress and well groomed Nutritional Appearance: obese Orientation: alert, awake and oriented x3 Other: she is tender with moderate palpation over the mid right 9th rib. GI Palpation: soft and nontender Musc Cervical Spine: normal cervical lordosis and cervical ROM normal Thoracic/Lumbar Spine: thoracic and lumbar spine normal to inspection, thoraco-lumbar ROM normal andstraight leg raise negative bilaterally Pelvis: no pain with anterior-posterior compression and no pain with lateral compression Skin Other: there is no rash or hypesthesia Psych A ppearance: grossly normal and well kempt Mental Status: mental status grossly normal Speech and Movement: speech and movement normal Mood: congruent mood Affect: normal affect Attitude: cooperative Thought Process: normal Thought Content: normal Insight: insight good Judgment: judgment good Assessment Plan Assessment Plan (1) Back pain: Code(s): M54.9 - Dorsalgia, unspecified Plan - Juliano Aguirre M.D.: the only way i can make a connection between her pain and bladder symptoms is with something involving the urinary tract. i think she needs imaging and possibly a referral. will start with a renal ultrasound and rib xary. if not helpful, then will go to a ct. recheck will be once studies are complete. Orders: Orders: Xray Ribs Unilateral RT Today US RENAL Today Electronically Signed By: <Electronically signed by Juliano Aguirre MD> Date/Time Signed: 08/29/19 0851 Name Value Range Interpretation Code Description Data Ria rce(s) Supporting Document(s) Procedure Social History Code Duration Value Status Description Data Source(s ) 10/02/2020 03:18:00 PM EST No completed [facility] 10/02/2020 03:18:00 PM EST No completed [facility] 10/02/2020 03:18:00 PM EST Never smoker completed Never [facility] Smoking 10/02/2020 03:18:00 PM EST Never smoker completed Never [facility] 09/19/2019 03:04:00 PM EST No completed [facility] 09/19/2019 03:04:00 PM EST No completed [facility] 09/19/2019 03:04:00 PM EST No completed [facility] 09/19/2019 03:04:00 PM EST No completed [facility] 09/19/2019 03:04:00 PM EST No completed [facility] 09/19/2019 03:04:00 PM EST No completed [facility] 09/19/2019 03:04:00 PM EST No completed [facility] 09/19/2019 03:04:00 PM EST No completed [facility] 09/05/2019 12:48:25 PM EST Never smoker completed Never s [facility] 09/05/2019 12:48:25 PM EST Never smoker completed Never [facility] 09/05/2019 12:48:25 PM EST Never smoker completed Never [facility] 09/05/2019 12:48:25 PM EST Never smoker completed Never [facility] 09/05/2019 12:48:25 PM EST Never smoker completed Never [facility] Smoking 09/05/2019 12:48:00 PM EST Never smoker completed Never [facility] Smoking 09/05/2019 12:48:00 PM EST Never smoker completed Never [facility] Smoking 09/05/2019 12:48:00 PM EST Never smoker completed Never s [facility] Smoking 09/05/2019 12:48:00 PM EST Never smoker completed Never [facility] Smoking 09/05/2019 12:48:00 PM EST Never smoker completed Never [facility] Vital Signs ID Date Data Source UNK Name Value Range Interpretation Code Description Data Source(s) Body temperature 97.6 [degF] 97.6 [degF] eCW1 ( [facility]) Respiratory rate 18 /min 18 /min eCW1 ([facility]) Heart rate 101 /min 101 /min eCW1 ([facility]) Body mass index (BMI) [Ratio] 50.12 kg/m2 50.12 kg/m2 eCW1 ([facility]) Body height 64 [in_i] 64 [in_i] eCW1 ([facility]) Body weight 292 [lb_av] 292 [lb_av] eCW1 (Count includes the [facility]) Diastolic blood pressure 74 mm[Hg] 74 mm[Hg] eCW1 ([facility]) Systolic blood pressure 120 mm[Hg] 120 mm[Hg] e CW1 ([facility]) Patient Treatment Plan of Care Planned Activity Planned Date Details Description Data Source (s) Sulfamethoxazole 800 MG / Trimethoprim 160 MG Oral Tab let [Bactrim] 10/13/2020 12:00:00 AM EST eCW1 ([facility]) Acetaminophen 325 MG / Oxycodone Hydrochloride 5 MG Or al Tablet [Percocet] 09/03/2020 12:00:00 AM EST eCW1 ([facility]) Acetaminophen 325 MG / Oxycodone Hydrochloride 5 MG Or al Tablet [Percocet] 09/03/2020 12:00:00 AM EST eCW1 ([facility]) Acetaminophen 325 MG / Oxycodone Hydrochloride 5 MG Or al Tablet [Percocet] 09/03/2020 12:00:00 AM EST eCW1 ([facility]) Oxybutynin chloride 5 MG Oral Tablet 09/01/2020 12:00:00 AM EST eCW1 ([facility]) Oxybutynin chloride 5 MG Oral Tablet 09/01/2020 12:00:00 AM EST eCW1 ([facility]) Oxybutynin chloride 5 MG Oral Tablet 09/01/2020 12:00:00 AM EST eCW1 ([facility]) Acetaminophen 325 MG / Oxycodone Hydrochloride 5 MG Or al Tablet [Percocet] 12/19/2019 12:00:00 AM EDT eCW1 ([facility])
[2020-10-16] MEDS ORDERED: SULF1TAB93 PO (09:10)
[2020-10-16] MEDS ORDERED: LevoFLOXacin IV 500 MG in IV 1 EA IV ONE (09:45)
[2020-10-16] MEDS ORDERED: LIDOCAINE 2% 100MG/5ML SDV (FOR ANES.) As Ordered ONE (10:09)
[2020-10-16] MEDS ORDERED: propofoL 200 MG/20 ML VIAL As Ordered ONE ×2 (10:09→11:22)
[2020-10-16] MEDS ORDERED: MIDAZOLAM INJ 2MG/2ML VIAL (J2250 PER 1MG) As Ordered ONE (10:09)
[2020-10-16] MEDS ORDERED: fentaNYL 100 MCG/2 ML INJECTION (J3010) As Ordered ONE ×2 (10:09→11:54)
[2020-10-16] MEDS ORDERED: DESFLURANE 240 ML INHALANT As Ordered ONE (11:11)
[2020-10-16] MEDS ORDERED: ROCURONIUM BROMIDE 50 MG/5 ML VIAL As Ordered ONE (11:22)
[2020-10-16] MEDS ORDERED: dexameTHASONE 4 MG/ML 1ML VIAL (J1100 PER 1MG) As Ordered ONE ×2 (11:22→13:13)
[2020-10-16] MEDS ORDERED: ONDANSETRON 4MG/2ML VIAL As Ordered ONE ×2 (11:22→11:46)
[2020-10-16] MEDS ORDERED: CONRAY-60 60% 50ML VIAL (Q9961) As Ordered ONE (11:24)
[2020-10-16] MEDS ORDERED: ACETAMINOPHEN 1000MG 100ML IV BTL (OFIRMEV) (J0131 PER 10MG) As Ordered ONE (11:41)
--- NOTE | 2020-10-16 12:38 | REP ---
INDICATION: LEFT CYSTO, STENT. COMPARISON: None. TECHNIQUE: Two views. 8 seconds of fluoroscopy time is reported. FINDINGS: A sequence of 2 last image hold fluoroscopically obtained spot radiographs of the abdomen document left ureteral cannulation, contrast injection, hydronephrosis, and double-pigtail stent placement. IMPRESSION: Procedural imaging. <Electronically signed by Vinicio Grant > 10/16/20 [id number]
[2020-10-16] MEDS ORDERED: FLOM0.4C39 PO (12:47)
[2020-10-16 13:44] VITALS: BP 162/90
[2020-10-16] MEDS ORDERED: oxyCODONE 5MG TAB PO PRN (14:00)
[2020-10-16] MEDS ORDERED: PERCOCET 5MG/325MG TAB PO PRN (14:00)
[2020-10-16] MEDS ORDERED: LR 1,000 ML IV SCH (14:00)
[2020-10-16] MEDS ORDERED: fentaNYL 100 MCG/2 ML INJECTION (J3010) IV PRN (14:00)
[2020-10-16] MEDS ORDERED: ONDANSETRON 4MG/2ML VIAL IV PRN (14:00)
--- NOTE | 2020-10-16 16:01 | RO ---
OPERATIVE NOTE DATE OF OPERATION: 10/16/2020 PRE-OPERATIVE DIAGNOSIS: Left ureteral stone. POST-OPERATIVE DIAGNOSIS: Left ureteral stone. PROCEDURES: 1. Cystoscopy. 2. Left ureteroscopy with laser lithotripsy and basket extraction of stone. 3. Left retrograde pyelogram with intraoperative interpretative images. 4. Left ureteral stent placement. SURGEON: Chin Jaffe MD. PLASTER MACHINE TENDER: None. ANESTHESIA: General. OPERATIVE INDICATIONS: This is a 45-year-old female who was found to have a 1.2-cm left ureteral stone. She was brought to the operating room today for treatment. DESCRIPTION OF PROCEDURE: The patient was brought to the operating room and general anesthesia was induced. Prophylactic antibiotics were infused. She was placed in the dorsal lithotomy position, prepped, and draped in the usual sterile fashion. A rigid cystoscope was inserted into the urethral meatus and advanced to the bladder. A guidewire was advanced up into the left collecting system. I then went up the left collecting system with a short semi-rigid ureteroscope and within the distal ureter, the large stone was seen. I then utilized a 272 micron laser fiber to fragment the stone into smaller pieces. All of the fragments were then removed using a basket. I then went into the more proximal ureter and no additional stones were seen. I then shot a retrograde pyelogram and it was notable for [id number] left hydronephrosis with no extravasation. I then withdrew the ureteroscope and no additional stones were seen on the way out of the ureter. I then utilized the guidewire to advance a 6-British x 22-32 cm JJ ureteral stent up into the left collecting system. The guidewire was removed and there were adequate curls of the stent in the left renal pelvis and in the bladder. The bladder was then emptied of all fluids. This marked the conclusion of the procedure. The patient was then taken out of the dorsal lithotomy position, awakened from anesthesia, and transferred to the recovery room in stable condition. ESTIMATED BLOOD LOSS: 5 mL. COMPLICATIONS: None. SPECIMEN: Kidney stone fragments. PLAN: The patient will follow up in the Urology Clinic in two weeks for stent removal.
== END 2020-10-16 14:10 | disposition home or self-care (01) ==
LOC: M SDC 08:52
PROVIDERS: ATTEND Urology
DX: N20.1 Calculus of ureter (principal); G43.909 Migraine, unspecified, not intractable, without status migrainosus; G47.30 Sleep apnea, unspecified; J30.89 Other allergic rhinitis; K58.9 Irritable bowel syndrome, unspecified; M12.9 Arthropathy, unspecified; R06.83 Snoring; Z79.899 Other long term (current) drug therapy; Z86.73 Personal history of transient ischemic attack (TIA), and cerebral infarction without residual deficits; Z88.8 Allergy status to other drugs, medicaments and biological substances; Z90.710 Acquired absence of both cervix and uterus
CPT/HCPCS: 52356; 74420; 82365; 88300; C1769; C2617; J0131; J1100; J1956; J2250; J2405; J3010; Q9961